=== PATIENT | female | born 1940 | race Caucasian/White ===

== ENCOUNTER → 2016-09-06 | Outpatient (CLI) | payer BC ==
[~2016-09-06] MED LIST: ACET-1047 PO; ACET-1311 PO; ALBINS/ INH; AMOX500C3 PO; AMOX875T PO; ASPI-428 PO; ATOR-24 PO; BISA10SU3 PR; CHOL1000 PO; CHOL100010 PO; CLON0.5T3 PO; CRAN1CAP15 PO; CRAN1CHW PO; DOCU-94 PO; DOXY1TAB6 PO; DULO-24 PO; EFF/375 PO; FENT50DI19 TD; FENT75DI2 TP; GUAI-13 PO; HYDR-5688 PO; IMD/2 PO; IPRASOL4 INH; LISI-461 PO; LISI-729 PO; LISI-789 PO; MENTOIN TOP; METO-596 PO; MOML PO; MULT-506 PO; NITR100C41 PO; NORT50CA PO; NORT75CA2 PO; OMEP20TA PO; OMEP40CA PO; OXYB5TAB21 PO; PETR49OI TOP; PROM25TA9 PO; PSYL55.43 PO; SENN-61 PO; SITA50TA3 PO; SODIENE PR; VENL150C PO; VENL37.593 PO; VSC/5 PO; WITCPAD TOP; [UNRECOGNIZED DRUG - CODE] TOP; [UNRECOGNIZED DRUG - SUPPLY] TOP; [UNRECOGNIZED DRUG - SUPPLY] TOP
--- NOTE | 2016-09-06 15:30 | MAMMOGRAPHY REPORT ---
BILATERAL DIGITAL SCREENING MAMMOGRAM WITH CAD: 09/06/2016 TECHNIQUE: Current study was also evaluated with a Computer Aided Detection (CAD) system. Bilatera l CC and MLO views were obtained. COMPARISON: Comparison is made to exams dated: 11/19/2013 mammogram, 11/18/2012 mammogram, 08/12/2010 ultrasound, 08/12/2010 mammogram, and 02/21/2010 mammogram - [facility]. BREAST COMPOSITION: The tissue of both breasts is heterogeneously dense, which may obscure small ma sses. FINDINGS: There is a new 16 mm mass with possible associated calcifications seen within the right u pper outer quadrant, for which spot compression tomosynthesis views, spot magnification views, and p ossible breast ultrasound are recommended for further evaluation. Additionally, there is an area of possible architectural distortion seen within the left lateral anterior breast, for which spot compr ession tomosynthesis views are also recommended. There is also a nodular 14 mm asymmetry seen withi n the left breast on the cc view along the posterior nipple line, for which spot compression tomosyn thesis views and possible ultrasound are recommended. The remainder of both breasts demonstrate no suspicious masses, calcifications, or areas of architec tural distortion. There are stable postsurgical changes in the right medial breast from prior lumpe ctomy. Scattered bilateral benign-appearing calcifications are again noted. IMPRESSION: ACR BI-RADS CATEGORY 0: INCOMPLETE EVALUATION: NEED ADDITIONAL IMAGING EVALUATION Right upper outer quadrant breast mass, possible left breast architectural distortion, and left stephane st asymmetry, for which additional imaging evaluation is recommended. The patient will be called to schedule an appointment. Approximately 10% of breast cancers are not detected with mammography. A negative mammographic repor t should not delay biopsy if a clinically suggestive mass is present. Elizabeth Quiros M.D. /:09/06/2016 13:20:12 Attending Technologist: Loulou Hassan RT(R)(M), [facility] Supervisor Reclamation: Kayla Culp RT(R)(M), [facility] letter sent: Addl Imaging 0 BI-RADS Code: ACR BI-RADS Category 0: Incomplete Evaluation: Need Additional Imaging Evaluation
== END | disposition home or self-care (01) ==
LOC: C.MAMM 11:53
PROVIDERS: ATTEND Family Medicine
DX: Z12.31 Encounter for screening mammogram for malignant neoplasm of breast (principal); Z85.3 Personal history of malignant neoplasm of breast; N63 Unspecified lump in breast

== ENCOUNTER → 2016-09-14 | Outpatient (CLI) | payer BC ==
[2016-09-14 08:50] LABS: BASO % 0.2 %; BASO ABS # 0.01 K/uL (0-0.2); COMPLETE YES; EOS % 0.2 %; HEMATOCRIT 35.8 % (37-47); IG% 4.1 %; LYMPH % 31.3 %; MEAN CORPUSCULAR HEMOGLOBIN 30.2 pg (25-34); MEAN CORPUSCULAR HGB CONC 31.8 g/dl (32-36); MEAN PLATELET VOLUME 9.8 fL (7.4-10.4); MONO % 11.7 %; NEUT % 52.5 %; PLATELET COUNT 196 K/uL (130-400); RED BLOOD COUNT 3.77 M/uL (4.2-5.4); WHITE BLOOD COUNT 6.08 K/uL (4.8-10.8)
[2016-09-14 09:06] LABS: ALT/SGPT 40 U/L (12-78); BLOOD UREA NITROGEN 15 mg/dl (7-18); BUN/CREATININE RATIO 18.6 (10-20); CALCIUM 8.5 mg/dl (8.5-10.1); CARBON DIOXIDE 26 mmol/L (21-32); CHLORIDE 107 mmol/L (98-107); CHOLESTEROL 183 mg/dl (0-200); CHOLESTEROL/HDL RATIO 6.8; CREATININE 0.78 mg/dl (0.60-1.20); GLUCOSE 113 mg/dl (70-99); HDL CHOLESTEROL 27 mg/dl; POTASSIUM 3.9 mmol/L (3.5-5.1); SODIUM 143 mmol/L (136-145); TRIGLYCERIDES 400 mg/dl (0-150)
[2016-09-14 09:17] LABS: ALB/GLOB RATIO 0.6 (0.9-2); ALKALINE PHOSPHATASE 73 U/L (45-117); AST/SGOT 30 U/L (15-37)
[2016-09-14 10:16] LABS: ESTIMATED AVERAGE GLUCOSE 194 mg/dl; HA1C FLAG Normal (Normal)
== END ==
LOC: C.LABCC 08:24
PROVIDERS: ATTEND Internal Medicine
DX: E11.9 Type 2 diabetes mellitus without complications (principal); I10 Essential (primary) hypertension; D64.9 Anemia, unspecified; E78.5 Hyperlipidemia, unspecified; E55.9 Vitamin D deficiency, unspecified

== ENCOUNTER → 2016-10-12 | Outpatient (CLI) | payer BC ==
[~2016-10-12] MED LIST changes: -NITR100C41 PO; +NITR100C43 PO
--- NOTE | 2016-10-12 16:29 | MAMMOGRAPHY REPORT ---
BILATERAL DIGITAL DIAGNOSTIC MAMMOGRAM TOMOSYNTHESIS WITH CAD AND TARGETED BILATERAL ULTRASOUND: 09/30 CLINICAL HISTORY: Callback from screening mammogram for right breast mass and left breast asymmetrie s. TECHNIQUE: Breast tomosynthesis in addition to standard 2D mammography was performed. Current study was also evaluated with a Computer Aided Detection (CAD) system. Spot compression bilateral CC and MLO 2-D and tomosynthesis images were obtained. COMPARISON: Comparison is made to exams dated: 09/06/2016 mammogram, 11/19/2013 mammogram, 11/18/2012 m ammogram, 08/12/2010 ultrasound, 08/12/2010 mammogram, and 02/21/2010 mammogram - [facility]. BREAST COMPOSITION: The tissue of both breasts is heterogeneously dense, which may obscure small ma sses. FINDINGS: Spot compression views of the right breast demonstrate a new irregular 17 mm mass with non-circumscr ibed margins in the right upper outer quadrant. Calcifications are seen within the mass. Note that spot magnification views could not be performed to evaluate the calcifications as the patient canno t stand. Additionally, there are diffusely scattered calcifications throughout the right breast whi ch are increased compared to prior exams. Many of the calcifications are very coarse and are clearl y benign and consistent with dystrophic calcifications. Other smaller calcifications are seen scatt ered throughout the right breast which are predominantly punctate and may also be dystrophic althoug h are indeterminate at this time. The previously described possible architectural distortion within the left breast on the cc view castro s not persist on the additional spot compression views. Additionally, the asymmetry seen within the left breast on the CC view posteriorly is less prominent on the spot compression view, and has the appearance more of fibroglandular tissue on the tomosynthesis images. No clear mass or suspicious a rchitectural distortion is noted in the left breast on the additional views. Targeted ultrasound was performed of the area of the mammographic mass in the right upper outer quad rant. Note that the ultrasound exam is limited as the patient is in a wheelchair and cannot move ea sily for proper positioning. In the right breast at 10:00, approximately 9 cm from the nipple, ther e is an irregular hypoechoic solid mass which measures 1.4 x 1.3 x 1.6 cm. A few punctate echogenic foci are seen within the mass, which correspond with the calcifications seen mammographically. The mass is highly suspicious and ultrasound guided core needle biopsy is recommended for further evalu ation. Targeted ultrasound was also performed of the left 12:00, subareolar, and 6:00 breast, in the region of the mammographic asymmetry. Although the ultrasound examination is limited, no suspicious mass or other suspicious sonographic abnormality is evident. IMPRESSION: ACR BI-RADS CATEGORY 5: HIGHLY SUGGESTIVE OF MALIGNANCY, TARGETED ULTRASOUND ACR BI-RAD S CATEGORY 5: HIGHLY SUGGESTIVE OF MALIGNANCY 1. Irregular 1.4 cm hypoechoic mass with associated calcifications in the right 10:00 breast. The mass is highly suspicious and ultrasound guided core needle biopsy is recommended for further evalua tion. 2. Increasing calcifications throughout the right breast, many of which are coarse and clearly sneha gn and dystrophic in origin. Other smaller punctate calcifications are seen throughout the right br east which may also be dystrophic although are indeterminate at this time. Pending malignant pathol ogy results of the right 10:00 mass, additional biopsies may be needed of the calcifications, if the patient desires breast conserving therapy (the patient is not a stereotactic biopsy candidate). 3. The left breast asymmetries efface on the additional views, without definite corresponding sonog raphic abnormality evident. The asymmetries are benign and felt to represent normal fibroglandular tissue. A phone call was made to the physician's office to confirm faxed results were received. The patient and her sister have been verbally notified of the results. A biopsy was tentatively scheduled befo re the patient left the department. Approximately 10% of breast cancers are not detected with mammography. A negative mammographic repor t should not delay biopsy if a clinically suggestive mass is present. Elizabeth Quiros M.D. ah/:10/12/2016 16:06:15 Attending Technologist: Terri Lang RT(R)(M), [facility] Rn Access: Estelle Hernandez RT(R)(M), [facility] letter sent: Abnormal 4/5 BI-RADS Code: ACR BI-RADS Category 5: Highly Suggestive Of Malignancy Ultrasound BI-RADS: ACR BI-RA DS Category 5: Highly Suggestive Of Malignancy
== END ==
LOC: C.MAMM 13:30
PROVIDERS: ATTEND Internal Medicine
DX: N63 Unspecified lump in breast (principal); N64.89 Other specified disorders of breast

== ENCOUNTER → 2016-10-12 | Outpatient (CLI) | payer BC ==
[2016-10-12 08:53] LABS: HEMATOCRIT 38.2 % (37-47); MEAN CELL VOLUME 92.7 fL (80-100); MEAN CORPUSCULAR HEMOGLOBIN 30.1 pg (25-34); MEAN CORPUSCULAR HGB CONC 32.5 g/dl (32-36); MEAN PLATELET VOLUME 9.2 fL (7.4-10.4); PLATELET COUNT 252 K/uL (130-400); RED BLOOD COUNT 4.12 M/uL (4.2-5.4); WHITE BLOOD COUNT 10.14 K/uL (4.8-10.8)
[2016-10-12 09:54] LABS: ALT/SGPT 20 U/L (12-78); AST/SGOT 28 U/L (15-37); BLOOD UREA NITROGEN 12 mg/dl (7-18); BUN/CREATININE RATIO 11.6 (10-20); CALCIUM 8.8 mg/dl (8.5-10.1); CARBON DIOXIDE 31 mmol/L (21-32); CHLORIDE 107 mmol/L (98-107); GLUCOSE 118 mg/dl (70-99); POTASSIUM 4.3 mmol/L (3.5-5.1); SODIUM 143 mmol/L (136-145)
[2016-10-12 09:57] LABS: ALB/GLOB RATIO 0.6 (0.9-2); ALKALINE PHOSPHATASE 71 U/L (45-117)
== END ==
LOC: C.LABCC 08:16
PROVIDERS: ATTEND Internal Medicine
DX: R11.2 Nausea with vomiting, unspecified (principal); R19.7 Diarrhea, unspecified; N63 Unspecified lump in breast; N64.89 Other specified disorders of breast

== ENCOUNTER → 2016-10-26 | Outpatient (CLI) | payer BC ==
--- NOTE | 2016-10-26 09:57 | Discharge Instructions ---
Discharge Instructions Procedure Procedure Date: Oct 26, 2016. Reason for visit: Right Mass. Discharge Discharge Date: Oct 26, 2016. Discharge Diagnosis: status post breast biopsy Instructions Activity Recommendations: Additional Limitations (see below) Return to School/Work: no limitations Recommended Home Diet: No Limitations Provider Instructions: ACTIVITY RECOMMENDATIONS: * No lifting, pushing, pulling or exercising the affected side for three days. RETURN TO SCHOOL/WORK: * You may return to work/school after the procedure, but do not perform any strenuous activities for 24 to 48 hours. MEDICATIONS: * Tylenol (two 325 mg) every four to six hours if needed for mild pain (if not allergic to Tylenol). DIET: * Resume previous diet. SPECIAL CARE INSTRUCTIONS: * Keep biopsy site dry for 24 hours. May shower after 24 hours, but do not soak (bathe) incision. * May remove Tegaderm (plastic patch) tomorrow AFTER showering. * Leave the steri-strips on for one week. Allow the steri-strips to fall off by themselves. If not off after one week, you may remove them. You may place a Bandaid crosswise over the strips, if desired. * Apply ice 10 minutes on and 10 minutes off as needed. * Wear a bra at bedtime to sleep more comfortably for 2-3 days. * Your referring physician should have the results after approximately 5 to 7 business days. * Call for unusual bleeding, fever, drainage, etc or if you have any questions call during normal business hours or after hours call Dr Quiros, . FOLLOW UP VISIT: Follow-up with Referring Physician as scheduled. Allergies Coded Allergies: Latex1 -Allergic Contact Dermititis (Verified Allergy, Unknown, ARMS SWELLED, 05/24/15) Aspirin (Verified Adverse Reaction, Mild, N/V, 05/24/15) Morphine (Verified Adverse Reaction, Mild, N/V; PATIENT TOLERATES DILAUDID IV, 05/24/15) Oxycodone (Verified Adverse Reaction, Mild, N/V; PATIENT TOLERATES DILAUDID IV, 05/24/15) Replaces ROXICET SOLN Ismael Chadwick Recommendations: Call your doctor if: * Temperature above 101 degrees * Pain not relieved by pain medicine ordered * There is increased drainage or redness from any incision * You have any unanswered questions or concerns. Your Doctors Instructions noted above were prepared by provider Elizabeth Quiros. Patient Signature Section: Patient Instructions Signature Page Ciara Kirkland Patient (or Guardian) Signature/Date: I have read and understand the instructions given to me by my caregivers. Caregiver/RN/Doctor Signature/Date: The above-named patient and/or guardian has received patient instructions on this date. + Original Patient Signature Page (only) stays with chart. Please make copy for patient.
--- NOTE | 2016-10-26 15:06 | MAMMOGRAPHY REPORT ---
THIS REPORT HAS BEEN AMENDED. ULTRASOUND GUIDED BIOPSY RIGHT BREAST: 10/26/2016 CLINICAL HISTORY: Suspicious right 10:00 breast mass with associated calcifications. PATIENT CONSENT: The procedure, risks and benefits were discussed with the patient and informed writ ten consent was obtained. A timeout was performed immediately prior to the procedure. PROCEDURE DESCRIPTION: With ultrasound guidance, aseptic technique, and lidocaine as the local anest hetic (1% lidocaine to anesthetize the skin and 1% lidocaine with epinephrine to anesthetize the roshni per tissues), the mass of concern in the right 10:00 breast was sampled 4 times with a 14-gauge Achi heidi biopsy needle. Immediately thereafter, with ultrasound guidance, aseptic technique, and lidocai ne as the local anesthetic, a metallic localizer clip was placed centrally in the mass. Direct pres sure was applied to the site immediately post procedure and hemostasis was achieved. A specimen radiograph was performed of the samples, which shows some calcifications to be present wi thin the samples. Postprocedure unilateral mammograms were performed to confirm placement of the cl ip in the expected location of the breast mass. The patient tolerated the procedure without complic ation. She was given wound care instructions. The specimens were sent to pathology for analysis. COMPARISON: Comparison is made to exams dated: 10/12/2016 mammogram, 09/06/2016 mammogram, 11/19/2013 m ammogram, and 11/18/2012 mammogram - [facility]. IMPRESSION: ULTRASOUND GUIDED BIOPSY Ultrasound guided core needle biopsy of the suspicious right 10:00 breast mass with associated calci fications, with clip placement. The patient will receive pathology results from her referring provi johnson. Elizabeth Quiros M.D. ah/:10/26/2016 09:58:58 Mineral Industry Teacher: Estelle DUFF(R)(Vida), [facility] AMENDMENT: 11/01/2016 Elizabeth Quiros M.D. The pathology from ultrasound-guided right breast biopsy was reviewed on 11/01/2016. 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 As the ma ss contained calcifications, if breast conserving therapy is being considered, consider additional b iopsies of other calcifications in the right breast which are increased compared to prior exams, to exclude the possibility of more extensive disease (the patient is not a stereotactic biopsy candidat e and would need surgical biopsy).
--- NOTE | 2016-10-26 15:08 | MAMMOGRAPHY REPORT ---
UNILATERAL RIGHT DIGITAL DIAGNOSTIC MAMMOGRAM: 10/26/2016 CLINICAL HISTORY: Status post ultrasound-guided biopsy of a right 10:00 breast mass. TECHNIQUE: Postprocedural right CC and ML views were obtained. COMPARISON: Comparison is made to exams dated: 10/12/2016 mammogram, 09/06/2016 mammogram, 11/19/2013 m ammogram, and 11/18/2012 mammogram - [facility]. BREAST COMPOSITION: The tissue of the right breast is heterogeneously dense, which may obscure smal l masses. FINDINGS: A new biopsy marker clip is seen within the biopsied mass in the right upper outer quadra nt. No significant postbiopsy hematoma is seen. IMPRESSION: POST PROCEDURE IMAGING FOR MARKER PLACEMENT New biopsy marker clip status post ultrasound guided biopsy of a right 10:00 breast mass with associ ated calcifications. Pathology results are pending. Approximately 10% of breast cancers are not detected with mammography. A negative mammographic repor t should not delay biopsy if a clinically suggestive mass is present. Elizabeth Quiros M.D. ah/:10/26/2016 10:14:34 Manager Etl: Estelle DUFF(R)(M), [facility] BI-RADS Code: Post Procedure Imaging For Marker Placement
== END ==
LOC: C.MAMM 08:55
PROVIDERS: ATTEND Pathology Anatomic Pathology & Clinical Pathology
DX: N63 Unspecified lump in breast (principal)

== ENCOUNTER → 2016-11-17 | Outpatient (CLI) | payer BC | LOC: C.LABCC 08:04 | PROVIDERS: ATTEND Internal Medicine | DX: E55.9 Vitamin D deficiency, unspecified (principal) ==

== ENCOUNTER → 2017-02-09 | Outpatient (CLI) | payer BC ==
[~2017-02-09] MED LIST changes: -ACET-1311 PO; -AMOX500C3 PO; -CRAN1CAP15 PO; -CRAN1CHW PO; -DULO-24 PO; -IMD/2 PO; -IPRASOL4 INH; -LISI-461 PO; -NITR100C43 PO; -NORT75CA2 PO; -PSYL55.43 PO; -VSC/5 PO
[2017-02-09 09:23] LABS: CHOLESTEROL/HDL RATIO 6.6
[2017-02-09 09:57] LABS: ESTIMATED AVERAGE GLUCOSE 160 mg/dl; HA1C FLAG Normal (Normal)
== END ==
LOC: C.LABCC 07:45
PROVIDERS: ATTEND Internal Medicine
DX: E78.5 Hyperlipidemia, unspecified (principal); E13.40 Other specified diabetes mellitus with diabetic neuropathy, unspecified

== ENCOUNTER 2017-02-12 07:33 | Observation (INO) | payer BC ==
[2016-12-27 15:43] VITALS: BMI 38.0
--- NOTE | 2016-12-28 08:43 | PAT Medication Instructions ---
Service Date Dec 28, 2016. Current Home Medication List Acetaminophen (Mapap), 1,300 MG PO BID PRN for PAIN OR TEMP Albuterol Sulf (Proventil 0.083% 2.5MG/3ML), 2.5 MG INH QID PRN for wheezing Aspirin (Ecotrin Low Strength), 81 MG PO QAM Bisacodyl (Dulcolax), 1 SUPP TX UD PRN for RN Cholecalciferol (Vitamin D), 1,000 INTER.UNIT PO QAM Clonazepam (Klonopin), 0.5 MG PO NOON/HS Clonazepam (Klonopin), 0.25 MG PO BID Cranberry (Vaccinium Macrocarp (Cranberry Soft Chews), 500 MG PO BID Fentanyl (Duragesic), 50 MCG TD CQ72HR Guaifenesin (Tussin), 10 ML PO Q6H PRN for Cough Hydrocodone/Acetaminophen 5MG/325MG ([place] 5MG/325MG), 1 TABLET PO Q4H PRN for RN Lisinopril (Prinivil), 2.5 MG PO QAM Magnesium Hydroxide (Milk Of Magnesia), 30 ML PO UD PRN Menthol-Zinc Oxide (Calmoseptine), 1 DOSE TOP Q8H Metoprolol Tartrate (Lopressor), 100 MG PO BID Miconazole Nitrate (Topical) (Aloe [place] Antifungal), 1 DOSE TOP BID Multivitamin (Multivitamin), 1 TAB PO QAM Nortriptyline (Pamelor), 50 MG PO HS Omeprazole (Prilosec), 40 MG PO BID Oxybutynin Chloride (Ditropan Xl), 5 MG PO QAM Petrolatum-Zinc Oxide (Sensi-Care Protective Bar), 1 DOSE TOP Q8H Promethazine Hcl (Phenergan), 25 MG PO Q6H PRN for Nausea Senna (Senokot), 1 TAB PO QAM Sitagliptin (Januvia), 50 MG PO QAM Sodium Phosphate/Biphosphate (Fleet Enema), 1 EA TX DAILY PRN for PRN Venlafaxine Hcl (Effexor Xr), 150 MG PO QAM Venlafaxine Hcl (Effexor), 37.5 MG PO QAM Witch Pepper (Hamamelis Virgini (Tucks Medicated), 1 DOSE TOP PRN [Skin Barrier Wipes], 1 DOSE TOP QPM [Tegaderm Absorbent], 1 DOSE TOP DAILY PRN for bar host Instructions For Your Scheduled Surgery - Check with surgeon and primary care physician for instructions: Aspirin (Ecotrin Low Strength), 81 MG PO QAM - Hold the following medications starting 12/28/16: Cranberry (Vaccinium Macrocarp (Cranberry Soft Chews), 500 MG PO BID - Hold the following medications 24 hours prior to surgery: [Skin Barrier Wipes], 1 DOSE TOP QPM [Tegaderm Absorbent], 1 DOSE TOP DAILY PRN for RN Katelyn Elderel (Hamamelis Virgini (Tucks Medicated), 1 DOSE TOP PRN Petrolatum-Zinc Oxide (Sensi-Care Protective Bar), 1 DOSE TOP Q8H Miconazole Nitrate (Topical) (Aloe [place] Antifungal), 1 DOSE TOP BID Menthol-Zinc Oxide (Calmoseptine), 1 DOSE TOP Q8H - Hold the following medications the morning of surgery: Sodium Phosphate/Biphosphate (Fleet Enema), 1 EA TX DAILY PRN for PRN Sitagliptin (Januvia), 50 MG PO QAM Senna (Senokot), 1 TAB PO QAM Oxybutynin Chloride (Ditropan Xl), 5 MG PO QAM Multivitamin (Multivitamin), 1 TAB PO QAM Magnesium Hydroxide (Milk Of Magnesia), 30 ML PO UD PRN Lisinopril (Prinivil), 2.5 MG PO QAM Guaifenesin (Tussin), 10 ML PO Q6H PRN for Cough Cholecalciferol (Vitamin D), 1,000 INTER.UNIT PO QAM Bisacodyl (Dulcolax), 1 SUPP TX UD PRN for RN - Take the following medications the morning of surgery with a sip of water: Venlafaxine Hcl (Effexor Xr), 150 MG PO QAM Venlafaxine Hcl (Effexor), 37.5 MG PO QAM Promethazine Hcl (Phenergan), 25 MG PO Q6H PRN for Nausea (if needed) Omeprazole (Prilosec), 40 MG PO BID Metoprolol Tartrate (Lopressor), 100 MG PO BID Hydrocodone/Acetaminophen 5MG/325MG ([place] 5MG/325MG), 1 TABLET PO Q4H PRN for RN (okay to take up to 4 hours prior to surgery if needed) Fentanyl (Duragesic), 50 MCG TD CQ72HR (avoid surgical site for placement) Acetaminophen (Mapap), 1,300 MG PO BID PRN for PAIN OR TEMP (if needed) Albuterol Sulf (Proventil 0.083% 2.5MG/3ML), 2.5 MG INH QID PRN for wheezing (if needed) - Take the following medications as scheduled the night before surgery: Sodium Phosphate/Biphosphate (Fleet Enema), 1 EA TX DAILY PRN for PRN (if needed) Promethazine Hcl (Phenergan), 25 MG PO Q6H PRN for Nausea (if needed) Omeprazole (Prilosec), 40 MG PO BID Nortriptyline (Pamelor), 50 MG PO HS Metoprolol Tartrate (Lopressor), 100 MG PO BID Magnesium Hydroxide (Milk Of Magnesia), 30 ML PO UD PRN (if needed) Hydrocodone/Acetaminophen 5MG/325MG ([place] 5MG/325MG), 1 TABLET PO Q4H PRN for RN (if needed) Guaifenesin (Tussin), 10 ML PO Q6H PRN for Cough (if needed) Clonazepam (Klonopin), 0.5 MG PO NOON/HS Clonazepam (Klonopin), 0.25 MG PO BID Bisacodyl (Dulcolax), 1 SUPP TX UD PRN for RN (if needed) Acetaminophen (Mapap), 1,300 MG PO BID PRN for PAIN OR TEMP (if needed) Albuterol Sulf (Proventil 0.083% 2.5MG/3ML), 2.5 MG INH QID PRN for wheezing (if needed) If you have any questions please call us at [phone] or [phone] or [phone]
[2017-01-29 11:07] LABS: BASO % 0.3 %; BASO ABS # 0.02 K/uL (0-0.2); COMPLETE YES; EOS % 3.2 %; HEMATOCRIT 35.3 % (37-47); IG% 0.3 %; LYMPH ABS # 1.94 K/uL (1.2-3.4); MEAN CELL VOLUME 92.2 fL (80-100); MEAN CORPUSCULAR HGB CONC 31.4 g/dl (32-36); MEAN PLATELET VOLUME 9.9 fL (7.4-10.4); MONO % 12.9 %; NEUT % 52.3 %; PLATELET COUNT 186 K/uL (130-400); RED BLOOD COUNT 3.83 M/uL (4.2-5.4); WHITE BLOOD COUNT 6.26 K/uL (4.8-10.8)
[2017-01-29 11:19] LABS: BUN/CREATININE RATIO 21.4 (10-20); CREATININE 0.98 mg/dl (0.60-1.20); POTASSIUM 3.9 mmol/L (3.5-5.1)
[2017-01-30 08:43] VITALS: BMI 33.0; BMI 38.0
--- NOTE | 2017-01-30 12:36 | PAT Medication Instructions ---
Service Date Jan 30, 2017. Current Home Medication List Acetaminophen (Mapap), 1,300 MG PO BID PRN for PAIN OR TEMP Albuterol Sulf (Proventil 0.083% 2.5MG/3ML), 2.5 MG INH QID PRN for wheezing Aspirin (Ecotrin Low Strength), 81 MG PO QAM Bisacodyl (Dulcolax), 1 SUPP NC UD PRN for RN Cholecalciferol (Vitamin D), 1,000 INTER.UNIT PO QAM Clonazepam (Klonopin), 0.5 MG PO NOON/HS Clonazepam (Klonopin), 0.25 MG PO BID Docusate Sodium (Colace), 1 CAP PO BID PRN for Constipation Fentanyl (Duragesic), 50 MCG TD CQ72HR Guaifenesin (Tussin), 10 ML PO Q6H PRN for Cough Hydrocodone/Acetaminophen 5MG/325MG ([place] 5MG/325MG), 1 TABLET PO Q4H PRN for RN Lisinopril (Prinivil), 2.5 MG PO QAM Magnesium Hydroxide (Milk Of Magnesia), 30 ML PO UD PRN Menthol-Zinc Oxide (Calmoseptine), 1 DOSE TOP Q8H Metoprolol Tartrate (Lopressor), 100 MG PO BID Miconazole Nitrate (Topical) (Aloe [place] Antifungal), 1 DOSE TOP BID Multivitamin (Multivitamin), 1 TAB PO QAM Nortriptyline (Pamelor), 50 MG PO HS Omeprazole (Prilosec), 40 MG PO BID Oxybutynin Chloride (Ditropan Xl), 5 MG PO QAM Petrolatum-Zinc Oxide (Sensi-Care Protective Bar), 1 DOSE TOP Q8H Promethazine Hcl (Phenergan), 25 MG PO Q6H PRN for Nausea Senna (Senokot), 1 TAB PO QAM Sitagliptin (Januvia), 50 MG PO QAM Sodium Phosphate/Biphosphate (Fleet Enema), 1 EA NC DAILY PRN for PRN Venlafaxine Hcl (Effexor Xr), 150 MG PO QAM Venlafaxine Hcl (Effexor), 37.5 MG PO QAM Witch Pepper (Hamamelis Virgini (Tucks Medicated), 1 DOSE TOP PRN [Skin Barrier Wipes], 1 DOSE TOP QPM [Tegaderm Absorbent], 1 DOSE TOP DAILY PRN for senior test engineer Instructions For Your Scheduled Surgery For Your Scheduled Surgery - Check with surgeon and primary care physician for instructions: Aspirin (Ecotrin Low Strength), 81 MG PO QAM - Hold the following medications 24 hours prior to surgery: [Skin Barrier Wipes], 1 DOSE TOP QPM [Tegaderm Absorbent], 1 DOSE TOP DAILY PRN for RN Katelyn Pabon (Hamamelis Virgini (Tucks Medicated), 1 DOSE TOP PRN Petrolatum-Zinc Oxide (Sensi-Care Protective Bar), 1 DOSE TOP Q8H Miconazole Nitrate (Topical) (Aloe [place] Antifungal), 1 DOSE TOP BID Menthol-Zinc Oxide (Calmoseptine), 1 DOSE TOP Q8H - Hold the following medications the morning of surgery: Sodium Phosphate/Biphosphate (Fleet Enema), 1 EA NC DAILY PRN for PRN Sitagliptin (Januvia), 50 MG PO QAM Senna (Senokot), 1 TAB PO QAM Oxybutynin Chloride (Ditropan Xl), 5 MG PO QAM Multivitamin (Multivitamin), 1 TAB PO QAM Magnesium Hydroxide (Milk Of Magnesia), 30 ML PO UD PRN Lisinopril (Prinivil), 2.5 MG PO QAM Guaifenesin (Tussin), 10 ML PO Q6H PRN for Cough Cholecalciferol (Vitamin D), 1,000 INTER.UNIT PO QAM Docusate Sodium PRN constipation - Take the following medications the morning of surgery with a sip of water: Venlafaxine Hcl (Effexor Xr), 150 MG PO QAM Venlafaxine Hcl (Effexor), 37.5 MG PO QAM Promethazine Hcl (Phenergan), 25 MG PO Q6H PRN for Nausea (if needed) Omeprazole (Prilosec), 40 MG PO BID Metoprolol Tartrate (Lopressor), 100 MG PO BID Hydrocodone/Acetaminophen 5MG/325MG ([place] 5MG/325MG), 1 TABLET PO Q4H PRN for RN (okay to take up to 4 hours prior to surgery if needed) Fentanyl (Duragesic), 50 MCG TD CQ72HR (avoid surgical site for placement) Acetaminophen (Mapap), 1,300 MG PO BID PRN for PAIN OR TEMP (if needed) Albuterol Sulf (Proventil 0.083% 2.5MG/3ML), 2.5 MG INH QID PRN for wheezing (if needed) - Take the following medications as scheduled the night before surgery: Sodium Phosphate/Biphosphate (Fleet Enema), 1 EA NC DAILY PRN for PRN (if needed) Promethazine Hcl (Phenergan), 25 MG PO Q6H PRN for Nausea (if needed) Omeprazole (Prilosec), 40 MG PO BID Nortriptyline (Pamelor), 50 MG PO HS Metoprolol Tartrate (Lopressor), 100 MG PO BID Magnesium Hydroxide (Milk Of Magnesia), 30 ML PO UD PRN (if needed) Hydrocodone/Acetaminophen 5MG/325MG ([place] 5MG/325MG), 1 TABLET PO Q4H PRN for RN (if needed) Guaifenesin (Tussin), 10 ML PO Q6H PRN for Cough (if needed) Clonazepam (Klonopin), 0.5 MG PO NOON/HS Clonazepam (Klonopin), 0.25 MG PO BID Acetaminophen (Mapap), 1,300 MG PO BID PRN for PAIN OR TEMP (if needed) Albuterol Sulf (Proventil 0.083% 2.5MG/3ML), 2.5 MG INH QID PRN for wheezing (if needed) Docusate Sodium PRN constipation (if needed) If you have any questions please call us at [phone] or [phone] or [phone]
[~2017-02-12] VITALS: Ht 152.4 cm; Wt 77.3 kg
[2017-02-12] VITALS (8 sets, daily range): BP systolic 120–152; BP diastolic 60–80; PULSE 85–98; TEMP 36.5–37.7; O2SAT 91–97; Ht 152.4 cm; Wt 77.3 kg
[~2017-02-12 07:33] MED LIST changes: -AMOX875T PO; -ATOR-24 PO; -CHOL1000 PO; -DOXY1TAB6 PO; -FENT75DI2 TP; +LACTATED RINGER'S 1000ML 1,000 ML IV SCH; -LISI-789 PO; -OMEP20TA PO; -VENL37.593 PO
[2017-02-12] MEDS ORDERED: ATROPINE SULFATE 0.1 MG/ML 5ML SYR IV PRN (07:45)
[2017-02-12] MEDS ORDERED: FLUMAZENIL 0.1 MG/1 ML 10 ML VIAL IV PRN (07:45)
[2017-02-12] MEDS ORDERED: PHENYLEPHRINE 100MCG/ML 5ML SYR IV PRN (07:45)
[2017-02-12] MEDS ORDERED: LABETALOL HCL IV 5 MG/ML 20ML IV PRN (07:45)
[2017-02-12] MEDS ORDERED: ONDANSETRON INJ 2 MG/ML 2 ML VIAL IV PRN (07:45)
[2017-02-12] MEDS ORDERED: NALOXONE HCL 0.4 MG/1 ML VIAL/CARP IV PRN (07:45)
[2017-02-12] MEDS ORDERED: EpHEDrine SULFATE INJ 50 MG/ML AMP IV PRN (07:45)
[2017-02-12] MEDS ORDERED: FENTANYL CITRATE INJ 50 MCG/1 ML 2 ML VIAL IV PRN (07:45)
[2017-02-12] MEDS ORDERED: HYDROmorphone INJ 2 MG/ML SYR/VIAL IV PRN (07:45)
[2017-02-12] MEDS ORDERED: MEPERIDINE HCL 25 MG/ML CARP IV PRN (07:45)
--- NOTE | 2017-02-12 08:57 | DIAGNOSTIC IMAGING REPORT ---
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 No complications. The above report was generated using voice recognition software. It may contain grammatical, syntax or spelling errors. Electronically signed by: Ranjeet Lund M.D. 02/12/2017 8:55 AM Dictated Date/Time: 02/12/2017 8:54 AM
[2017-02-12] MEDS ORDERED: FENTANYL CITRATE INJ 50 MCG/1 ML 2 ML VIAL ONE ×2 (09:13→14:05)
--- NOTE | 2017-02-12 11:20 | History & Physical Bridge Note ---
H&P Re-Evaluation Bridge Note: I have examined the patient, reviewed the History & Physical and in the interval since the performance of the History & Physical I have noted the following changes of clinical significance: No changes noted
[2017-02-12] MEDS ORDERED: ISOSULFAN BLUE 10 MG/ML VIAL 5 ML ONE (11:37)
[2017-02-12] MEDS ORDERED: DEXAMETHASONE SOD INJ 4 MG/ML VIAL ONE (12:00)
[2017-02-12] MEDS ORDERED: ONDANSETRON INJ 2 MG/ML 2 ML VIAL ONE (12:00)
[2017-02-12] MEDS ORDERED: LIDOCAINE HCL 2% 2 ML VIAL (20MG/ML) ONE (12:00)
[2017-02-12] MEDS ORDERED: PHENYLEPHRINE 100MCG/ML 5ML SYR ONE (12:00)
[2017-02-12] MEDS ORDERED: PROPOFOL IV EMULSION 10 MG/ML 20 ML VIAL IV ONE (12:00)
[2017-02-12] MEDS ORDERED: EpHEDrine SULFATE 50MG/5ML SYR ONE (12:45)
--- NOTE | 2017-02-12 13:33 | [facility] Post Operative Brief Note ---
Immediate Operative Summary Operative Date Feb 12, 2017. Pre-Operative Diagnosis Carcinoma Right Breast Post-Operative Diagnosis same as pre-operative Procedure(s) Performed Right Masectomy with exploration of right axilla Surgeon Dr. Ranjeet Tsang Signal Person Surgeon(s) Arianne Bello PA-C Estimated Blood Loss 75ml Findings See dictation Specimens A: Right Breast stitch lateral B: Right Axillary Fat Drains One J-P across chest wall Anesthesia General Complication(s) None Disposition Recovery Room / PACU
[2017-02-12] MEDS ORDERED: HYDROmorphone INJ 0.5 MG/0.5 ML SYR IV PRN (13:45)
[2017-02-12] MEDS ORDERED: DOCUSATE SODIUM 100 MG CAP PO PRN (13:45)
[2017-02-12] MEDS ORDERED: IV FLUIDS COMPLETED PRN (14:45)
--- NOTE | 2017-02-12 14:52 | Anesthesiology Progress Note ---
Anesthesia Post Op Note Date & Time Feb 12, 2017 at 14:52 Vital Signs Pain Intensity: 3 Vital Signs Past 12 Hours Date Time Temp Pulse Resp B/P (MAP) Pulse Ox O2 Delivery O2 Flow Rate FiO2 02/12/17 14:30 36.8 86 15 152/67 95 Nasal Cannula 2 02/12/17 14:20 90 18 142/65 97 Nasal Cannula 2 02/12/17 14:10 86 14 152/75 98 Mask 10 02/12/17 14:00 85 17 132/78 100 Mask 10 02/12/17 13:50 79 17 146/81 100 Mask 10 02/12/17 13:42 36.1 88 17 156/72 98 Mask 10 02/12/17 08:52 37.7 92 20 141/60 (87) 95 Room Air Notes Mental Status: alert / awake / arousable, participated in evaluation Pt Amnestic to Procedure: Yes Nausea / Vomiting: adequately controlled Pain: adequately controlled Airway Patency, RR, SpO2: stable & adequate BP & HR: stable & adequate Hydration State: stable & adequate Anesthetic Complications: no major complications apparent
[2017-02-12] MEDS: SODIUM CHLORIDE 0.9% 1000ML 1,000 ML IV SCH (15:51)
[2017-02-12] MEDS: CLONAZEPAM 0.5 MG TAB PO SCH ×2 (17:25→21:55)
[2017-02-12] MEDS ORDERED: PHARMACY GLYCEMIC MGMT CONSULT PRN (17:58)
[2017-02-12] MEDS ORDERED: GLUCOSE 40% GEL 15 GM TUBE PO PRN (18:15)
[2017-02-12] MEDS ORDERED: GLUCOSE 10 TABS/TUBE PO PRN (18:15)
[2017-02-12] MEDS ORDERED: INSULIN GLARGINE SOLOSTAR 100 UNITS/ML 3 ML PEN SC SCH ×2 (18:15→22:15)
[2017-02-12] MEDS ORDERED: DEXTROSE 50% 50 ML SYR IV PRN (18:15)
[2017-02-12] MEDS ORDERED: GLUCAGON FOR INJ 1 MG VIAL SQ PRN (18:15)
[2017-02-12] MEDS: INSULIN ASPART 100 UNITS/ML 3 ML PEN SC SCH ×2 (18:39→22:04)
--- NOTE | 2017-02-12 19:00 | OPERATIVE REPORT ---
DATE OF OPERATION: 02/12/2017 PREOPERATIVE DIAGNOSIS: Carcinoma of the right breast. POSTOPERATIVE DIAGNOSIS: Same. PROCEDURE: Right mastectomy with exploration of the right axilla. SURGEON: Dr. Tsang. FOOD TECHNOLOGY TEACHER: Arianne Bello PA-C. FINDINGS: The breast was fibrotic in the inferior portion. The axilla was also fibrotic. The mass was not encountered. There was adequate blood supply to the skin flaps. In exploring the axilla, the patient had had the radiotracer injected in the periareolar region and then had blue dye. There was absolutely no blue dye in the axilla. The highest count both externally and after the mastectomy had begun. I was able to place the probe into, the axilla itself was 4 and those counts were very inconsistent. Previous discussion with the patient and with her family was that if sentinel nodes could not be identified, they did not want an axillary node dissection and so none was performed. TECHNIQUE: The patient was given a general anesthetic after the area had been marked in the preoperative area. The skin around the areola was cleansed with alcohol and Lymphazurin was injected in the periareolar region in the dermis. The area was then prepped and draped in usual sterile fashion. The incision had been sketched on the skin. The superior portion of the ellipse was created and carried down through to the subcutaneous tissue. There were large venous structures that were cauterized. The superior flap was then created, maintaining an ease in skin flap. It was dissected up to the level of the clavicle and over to the lateral border of the sternum and over towards the lateral border of pectoralis major. The inferior incision was then made as well. This was dissected and the skin flap created in a similar fashion. That was a little more difficult in that the inferior breast had a lot of fibrotic tissue. The skin was relatively adherent. I was able to establish a plane with skin flap with good blood supply. I eventually had to carry that down on to the rectus fascia in order to close the incision. Once that was created, I then entered the axilla. Using the Neoprobe, I attempted to identify a sentinel lymph node using the radiotracer but again there were essentially no counts. I then opened the axillary fascia and dissected in the inferior portion of the axilla and I tried to identify a blue node, but there was no blue dye either. Several areas were dissected and inspected, but again no counts were blue dye. There was 1 nodular area of fat that I did remove. This did not appear to be a lymph node, but I sent it for pathology. There was fibrotic adhesion of the tissues in the axilla as well. At that point we completed the mastectomy by opening the prepectoral fascia around the entire dissection area of the skin flaps. The prepectoral fascia was then peeled off the underlying pectoralis major muscle, working from medial to lateral. Once it was off the entire pectoralis muscle, the lateral skin dissection was completed, again significantly fibrotic subcutaneous tissue and the specimen was removed. It was marked with a stitch on the lateral end of the ellipse. Meticulous hemostasis was then obtained using electrocautery. A separate stab incision was made inferolateral to the incision through which a 10 mm Prabhjot-Hensley was brought, placed across the chest wall and secured with a 3-0 nylon. The incision was then closed with interrupted 2-0 Vicryl in the subcutaneous tissue. The superficial subcutaneous tissue was closed with running 3-0 Vicryl and the skin was closed with 4-0 Monocryl in a running subcuticular fashion. The skin was cleansed, dried, benzoin placed, Steri-Strips applied. Estimated blood loss was 75 mL. Sponge, needle and instrument counts were correct prior to closure. The patient tolerated the surgical procedure without complication and was transferred to recovery. I attest to the content of the Intraoperative Record and any orders documented therein. Any exception s are noted below.
--- NOTE | 2017-02-12 20:13 | Pharmacy Progress Note ---
Glycemic Control Intl Consult Date of Service Feb 12, 2017. Scope Glycemic Pharmacist consulted by Dr Thomas on 02/12/17 for glycemic control and to write orders per [facility] inpatient glycemic control protocol Objective Weight (Kilograms): 77.270 Accuchecks BSG (last 24hrs): Test 02/12/17 08:07 02/12/17 13:48 02/12/17 16:51 Bedside Glucose 160 mg/dl (70-90) 134 mg/dl (70-90) 215 mg/dl (70-90) HbA1c 7.2% on 02/09/17 Recent Pertinent Medications Outpatient Anti-diabetic Regimen: * Januvia 50mg PO QAM Risk Factors for Insulin Resistance: * Recent Surgery * Diet Assessment & Plan ASSESSMENT: * 76yo T2DM female s/p mastectomy * Pt is maintained on oral antidiabetic agent as an outpatient with adequate control per recent A1c * Oral agents are not recommended for inpatient use d/t drug interactions, changing PO intake, and difficulty titrating for acute hyper/hypoglycemia. ADA recommends re-initiating outpatient oral agents 1-2 days prior to discharge if/ when appropriate if they were held on admission. * Will hold oral agent for admission and utilize SQ basal bolus insulin regimen which is the recommended regimen for inpatient glycemic control. * Will initiate weight based insulin dosing for insulin erin patient and titrate based on BSG trends. * ADA & AACE recommend a goal blood sugar range 140-180 mg/dl for the majority of critically ill & non-critically ill patients. However, more stringent targets may be selected in individual cases. Will utilize more stringent goal of 110-140mg/dl based on baseline tight control. Additionally, tighter glycemic control is warranted to facilitate wound/infection healing. PLAN FOR INPATIENT GLYCEMIC CONTROL: * Holding outpatient oral diabetes medications * May consider resuming POD #1 or 2 after renal function is assessed and PO intake is adequate * Basal insulin * Lantus 15 units (0.2 units/kg) SQ Q24hrs * Bolus Insulin * NovoLog per scale ACHS or Q6hrs while NPO * Goal Range: Low 110 mg/dL - High 140 mg/dL * Correction Factor: 30 mg/dL/unit * Nutritional / Prandial insulin per carb ratio of 1 unit per 10 grams CHO consumed * Please note that the plan above was derived based on current level of insulin resistance and hospital stress. These recommendations are appropriate for inpatient admission only. Plan of care upon discharge will need to be reassessed to avoid potential outpatient hypo/hyperglycemia. Thank you.
[2017-02-12] MEDS ORDERED: CLONAZEPAM 0.5 MG TAB PO SCH (21:00)
[2017-02-12] MEDS: METOPROLOL TARTRATE 100 MG TAB PO SCH (21:52)
[2017-02-12] MEDS: PANTOprazole SOD 40 MG TAB PO SCH (21:53)
[2017-02-12] MEDS: HYDROCODONE/ACETAMOPHEN 5/325MG TAB PO PRN (21:55)
[2017-02-13] MEDS: HYDROCODONE/ACETAMOPHEN 5/325MG TAB PO PRN ×5 (01:55→21:31)
[2017-02-13] MEDS: SODIUM CHLORIDE 0.9% 1000ML 1,000 ML IV SCH ×2 (01:55→13:54)
[2017-02-13 04:03] VITALS: BP 126/69; PULSE 83; TEMP 36.7; O2SAT 93
[2017-02-13 08:00] VITALS: BP 106/60; PULSE 70; TEMP 36.2; O2SAT 92
[2017-02-13] MEDS: SENNA 8.6 MG TAB PO SCH (09:00)
[2017-02-13] MEDS: PANTOprazole SOD 40 MG TAB PO SCH ×2 (09:00→21:26)
[2017-02-13] MEDS: VENLAFAXINE HCL XR 150 MG CAPXR PO SCH (09:00)
[2017-02-13] MEDS: MULTIVITAMIN TAB PO SCH (09:00)
[2017-02-13] MEDS: METOPROLOL TARTRATE 100 MG TAB PO SCH ×2 (09:01→21:25)
[2017-02-13] MEDS: LISINOPRIL 2.5 MG TAB PO SCH (09:01)
[2017-02-13] MEDS: OXYBUTYNIN CHLORIDE 5 MG TABCR PO SCH (09:01)
[2017-02-13] MEDS ORDERED: INSULIN GLARGINE SOLOSTAR 100 UNITS/ML 3 ML PEN SC ONE (09:15)
[2017-02-13] MEDS: CLONAZEPAM 0.5 MG TAB PO SCH ×4 (10:02→21:25)
[2017-02-13] MEDS: SITAGLIPTIN 25 MG TAB PO SCH (10:02)
--- NOTE | 2017-02-13 10:07 | Surgery Progress Note ---
Surgery Progress Note Date of Service Feb 13, 2017. Subjective Post OP Day: 1 + feeling well, + pain controlled, + diet (regular diet), No complaints, No chest pain, No SOB, No nausea, No vomiting Objective Vital Signs: Date Time Temp Pulse Resp B/P (MAP) Pulse Ox O2 Delivery O2 Flow Rate FiO2 02/13/17 08:00 36.2 70 12 106/60 (75) 92 Room Air 02/13/17 08:00 92 Room Air 02/13/17 07:30 Room Air 02/13/17 04:03 36.7 83 18 126/69 (88) 93 Room Air 02/13/17 01:10 Room Air 02/12/17 22:50 37.1 98 18 120/69 (86) 91 Room Air 02/12/17 20:05 36.5 85 18 134/70 (91) 93 Room Air 02/12/17 17:45 37.2 88 18 147/78 (101) 93 Nasal Cannula 2.0 02/12/17 16:42 36.7 87 18 145/75 (98) 97 Nasal Cannula 2.0 02/12/17 15:50 Nasal Cannula 2.0 02/12/17 15:45 36.5 91 18 133/75 (94) 95 Nasal Cannula 2.0 02/12/17 15:15 36.9 88 18 152/80 (104) 93 Nasal Cannula 2.0 02/12/17 14:45 95 Nasal Cannula 2.0 02/12/17 14:45 36.5 89 18 146/77 (100) 95 Nasal Cannula 2.0 02/12/17 14:30 36.8 86 15 152/67 95 Nasal Cannula 2 02/12/17 14:20 90 18 142/65 97 Nasal Cannula 2 02/12/17 14:10 86 14 152/75 98 Mask 10 02/12/17 14:00 85 17 132/78 100 Mask 10 02/12/17 13:50 79 17 146/81 100 Mask 10 02/12/17 13:42 36.1 88 17 156/72 98 Mask 10 Physical Exam: ELLY drainage (serosanguineous) General Appearance: WD/WN, no apparent distress Head: normocephalic, atraumatic Neck: trachea midline Respiratory/Chest: no respiratory distress, no accessory muscle use Incision(s): clean, dry, intact, no erythema, no drainage, findings (steri strips present, no edema) Laboratory Results: Results Past 24 Hours Test 02/12/17 13:48 02/12/17 16:51 02/12/17 20:14 02/13/17 08:03 Range/Units Bedside Glucose 134 215 299 148 70-90 mg/dl Microbiology Results 02/12/17 MRSA DNA Surveillance Screen - Final, Complete Specimen Negative for MRSA by DNA Probe Assessment & Plan POD # 1 s/p right mastectomy with exploration of the right axilla - vitals stable - tolerating regular diet - pain minimal and controlled Plan ELLY drain teaching continue regular diet continue pain medication as needed Dressing to chest- ABD over incision, drain sponge and then surgical bra D/C [facility] to [facility] discharge instructions and restriction discussed Dr. Tsang has seen and examined patient agrees with above.
--- NOTE | 2017-02-13 10:12 | Discharge Instructions ---
Discharge Instructions Date of Service Feb 13, 2017. Admission Reason for Admission: Rt Breast -Malignant Neoplasm Of Upper-Outer Quad Discharge Discharge Diagnosis / Problem: same Discharge Goals Goal(s): Decrease discomfort, Improve function Activity Recommendations Activity Limitations: as noted below No heavy lifting with right arm over 10 pounds for 2 weeks No strenuous activity for 2 weeks No submerging incision underwater for 2 weeks (swimming, bathing, or hot tubs) No driving while taking narcotic pain medication or until you are pain free . Instructions / Follow-Up Instructions / Follow-Up wear surgical bra with ABDs over incision for a few weeks Keep record of ELLY drainage output, record how much and when you empty the drain Once the drainage is below 20 cc in 24 hours then it is time to have the drain removed You will need to make an appointment for drain removal once it is time, please call office at [phone] to make an appointment. You will have a follow-up in office in [address] Tsang, that should already be scheduled for you, if not please call [phone] to make that appointment as well Current Hospital Diet Patient's current hospital diet: Diabetes Type 2 Diet Discharge Diet Recommended Diet: Regular Diet Procedures Procedures Performed: Right Masectomy with exploration of right axilla Pending Studies Studies pending at discharge: yes List of pending studies: Pathology of right breast Laboratory Results Hemoglobin A1c Test 02/09/17 04:37 Range/Units Estimated Average Glucose 160 mg/dl Hemoglobin A1c 7.2 H 4.5-5.6 % Lipid Panel Test 02/09/17 04:37 Range/Units Triglycerides Level 642 H 0-150 mg/dl Cholesterol Level 190 0-200 mg/dl HDL Cholesterol 29 mg/dl Cholesterol/HDL Ratio 6.6 LDL Cholesterol, Calculated mg/dl Medical Emergencies . Who to Call and When: Medical Emergencies: If at any time you feel your situation is an emergency, please call 911 immediately. . Non-Emergent Contact Non-Emergency issues call your: Primary Care Provider, Surgeon Call Non-Emergent contact if: you have a fever, temperature is above 101.5, your pain is not controlled, your pain is worsening, wound has increased drainage, wound has increased redness, wound has increased pain . "Provider Documentation" section prepared by Arianne Bello. . VTE Core Measure Inpt VTE Proph given/why not?: SCD's [place] Drug Monitoring Program Search Results: patient reviewed within database, no issues identified
[2017-02-13] MEDS: INSULIN ASPART 100 UNITS/ML 3 ML PEN SC SCH ×4 (10:43→21:00)
--- NOTE | 2017-02-13 11:02 | Anesthesiology Progress Note ---
Anesthesia Post Op Note Date & Time Feb 13, 2017 at 11:01 Vital Signs Pain Intensity: 6.0 Vital Signs Past 12 Hours Date Time Temp Pulse Resp B/P (MAP) Pulse Ox O2 Delivery O2 Flow Rate FiO2 02/13/17 08:00 36.2 70 12 106/60 (75) 92 Room Air 02/13/17 08:00 92 Room Air 02/13/17 07:30 Room Air 02/13/17 04:03 36.7 83 18 126/69 (88) 93 Room Air 02/13/17 01:10 Room Air Notes Mental Status: alert / awake / arousable, participated in evaluation Pt Amnestic to Procedure: Yes Nausea / Vomiting: adequately controlled Pain: adequately controlled Airway Patency, RR, SpO2: stable & adequate BP & HR: stable & adequate Hydration State: stable & adequate Anesthetic Complications: no major complications apparent
--- NOTE | 2017-02-13 11:15 | Pharmacy Progress Note ---
Glycemic Control Progress Note Date of Service Feb 13, 2017. Scope Glycemic Pharmacist consulted for glycemic control to write orders per [facility] inpatient glycemic control protocol. Objective Accuchecks BSG (last 24hrs): Test 02/12/17 13:48 02/12/17 16:51 02/12/17 20:14 02/13/17 08:03 Bedside Glucose 134 mg/dl (70-90) 215 mg/dl (70-90) 299 mg/dl (70-90) 148 mg/dl (70-90) Recent Pertinent Medications The patient is currently receiving: * Basal insulin: Lantus 30 units total yesterday * Correctional Insulin: Novolog Correction per scale ACHS Goal Range: Low 110 mg/dL - High 140 mg/dL Correction Factor: 20 mg/dL/unit * Prandial insulin: Per carb ratio of 1 unit per 7 grams CHO consumed * Oral Agents: None at this time Outpatient Anti-Diabetic Meds Januvia 50 mg daily Assessment & Plan ASSESSMENT: * See progress note from 02/12 for more background info, in short: * Pt receiving SQ basal bolus insulin regimen for hyperglycemia secondary to baseline DM (outpatient regimen on hold), recent surgery, steroids * Patient received 48 units of insulin yesterday w/ BSGs ranging from 134-299 mg /dL in the past 24 hours * Decadron may still be hanging around today but should start to wear off. Will plan to resume Januvia in preparation for discharge. In addition, will reduce Lantus dose to 10 units this AM only (~stress of 1 using patient's wt and insulin SQ calculator). I had planned to loosen the CF/CR with this AM's dose of Novolog but the nurse had already given the dose so will loosen w/ lunch based on stress level of 2. PLAN FOR INPATIENT GLYCEMIC CONTROL: * Reduce Lantus to 10 units SQ this AM only * LOOSEN correction factor to 30 mg/dl/unit * LOOSEN carb ratio to 1 unit per 10 grams CHO consumed * Continue goal range of Low 110 mg/dL - High 140 mg/dL * Restart Januvia 50 mg daily RECOMMENDATIONS FOR DISCHARGE: * A1c indicates good outpatient control. Continue Januvia. Thank you.
[2017-02-13 12:00] VITALS: BP 104/60; PULSE 68; TEMP 37.4; O2SAT 94
[2017-02-13 15:38] VITALS: BP 116/73; PULSE 69; TEMP 37; O2SAT 95
[2017-02-13 23:13] VITALS: BP 138/72; PULSE 104; TEMP 38.2; O2SAT 91
[2017-02-14] MEDS: SODIUM CHLORIDE 0.9% 1000ML 1,000 ML IV SCH (00:51)
[2017-02-14 01:00] VITALS: BP 127/70; PULSE 110; TEMP 38.2; O2SAT 92
[2017-02-14] MEDS: HYDROCODONE/ACETAMOPHEN 5/325MG TAB PO PRN ×3 (01:28→12:13)
[2017-02-14 07:20] VITALS: O2SAT 94
[2017-02-14 07:34] VITALS: BP 145/70; PULSE 68; TEMP 36.7; O2SAT 94
[2017-02-14 08:00] VITALS: BP 118/70; TEMP 37.1; O2SAT 94
[2017-02-14 08:47] VITALS: BP 118/70; PULSE 68; TEMP 37.1; O2SAT 94
[2017-02-14] MEDS ORDERED: HYDR-5688 PO (08:49)
[2017-02-14] MEDS: SENNA 8.6 MG TAB PO SCH (09:00)
--- NOTE | 2017-02-14 09:30 | Surgery Progress Note ---
Surgery Progress Note Date of Service Feb 14, 2017. Subjective Post OP Day: 2 + feeling well ("cold and tired this morning"), + pain controlled, + diet ( regular diet), No nausea, No vomiting Had fever last night, nothing this am Objective Vital Signs: Date Time Temp Pulse Resp B/P (MAP) Pulse Ox O2 Delivery O2 Flow Rate FiO2 02/14/17 08:47 37.1 68 12 94 Room Air 02/14/17 08:00 37.1 12 118/70 (86) 94 Room Air 02/14/17 08:00 94 Room Air 02/14/17 07:34 36.7 68 14 145/70 (95) 94 Room Air 02/14/17 07:20 94 Room Air 02/14/17 01:00 38.2 110 16 127/70 (89) 92 Room Air 02/14/17 00:45 Room Air 02/13/17 23:13 38.2 104 17 138/72 (94) 91 Room Air 02/13/17 16:15 Room Air 02/13/17 15:38 37.0 69 18 116/73 (87) 95 Room Air 02/13/17 12:00 37.4 68 14 104/60 (75) 94 Room Air General Appearance: WD/WN, no apparent distress Head: normocephalic, atraumatic Neck: trachea midline Respiratory/Chest: no respiratory distress, no accessory muscle use Incision(s): clean, dry, intact, no erythema, no drainage, findings (steri strips present and intact, ELLY drain with serosanguienous drainage, incision nontender on examination, no edema) Laboratory Results: Results Past 24 Hours Test 02/13/17 11:58 02/13/17 17:33 02/13/17 20:59 02/13/17 23:41 Range/Units Bedside Glucose 116 122 113 123 70-90 mg/dl Test 02/14/17 08:30 Range/Units Bedside Glucose 127 70-90 mg/dl Assessment & Plan POD # 2 s/p right mastectomy with exploration of the right axilla - vitals stable, febrile last night but nothing since - tolerating regular diet - pain minimal and controlled Plan d/c back to [facility] this morning discharge instructions and follow-up given and typed out for patient Rx for [place] given Follow-up with Dr. Tsang in 2 weeks May need earlier office visit for ELLY drain removal if output less than 20 cc in [address] Thomas has seen and examined patient agrees with above.
[2017-02-14] MEDS: SITAGLIPTIN 25 MG TAB PO SCH (09:47)
[2017-02-14] MEDS: VENLAFAXINE HCL XR 150 MG CAPXR PO SCH (09:47)
[2017-02-14] MEDS: LISINOPRIL 2.5 MG TAB PO SCH (09:47)
[2017-02-14] MEDS: MULTIVITAMIN TAB PO SCH (09:47)
[2017-02-14] MEDS: OXYBUTYNIN CHLORIDE 5 MG TABCR PO SCH (09:47)
[2017-02-14] MEDS: CLONAZEPAM 0.5 MG TAB PO SCH ×2 (09:49→12:12)
[2017-02-14] MEDS: INSULIN ASPART 100 UNITS/ML 3 ML PEN SC SCH ×2 (09:57→13:23)
[2017-02-14] MEDS: PANTOprazole SOD 40 MG TAB PO SCH (10:59)
[2017-02-14] MEDS: METOPROLOL TARTRATE 100 MG TAB PO SCH (10:59)
[2017-02-14 12:00] VITALS: BP 120/66; PULSE 72; TEMP 37; O2SAT 95
--- NOTE | 2017-02-19 09:20 | Discharge Summary ---
Discharge Summary Dates Admission Date / Time: Feb 12, 2017 at 08:00 Discharge Date: Feb 14, 2017 Dispostion / Condition Discharge Disposition: assisted facility Condition at Discharge: Good Principal Diagnosis (1) Breast cancer in female Problem List (1) Breast cancer in female Consultations / Procedures Consultations: None Procedures: Right mastectomy with attempt at right sentinel lymph node biopsy (0 nodes found ) Medication Reconciliation New Medications: Hydrocodone/Acetaminophen 5MG/325MG ([place] 5MG/325MG) Tab 1-2 TAB PO Q4H PRN for RN, #30 TAB 0 Refills PRN PAIN Continued Medications: Acetaminophen (Mapap) 325 Mg Tab 1300 MG PO BID PRN for PAIN OR TEMP Aspirin (Ecotrin Low Strength) 81 Mg Tab 81 MG PO QAM Bisacodyl (Dulcolax) 10 Mg Sup 1 SUPP DE UD PRN for RN, SUP Cholecalciferol (Vitamin D) 1,000 Inter.unit Tab 1000 INTER.UNIT PO QAM, TAB Clonazepam (Klonopin) 0.5 Mg Tab 0.5 MG PO NOON/HS, TAB Clonazepam (Klonopin) 0.5 Mg Tab 0.25 MG PO BID, TAB Docusate Sodium (Colace) 100 Mg Cap 1 CAP PO BID PRN for Constipation for 30 Days, #60 CAP Fentanyl (Duragesic) 50 Mcg/ Dis 50 MCG TD [id number], PATCH Lisinopril (Prinivil) 5 Mg Tab 2.5 MG PO QAM, TAB Metoprolol Tartrate (Lopressor) 100 Mg Tab 100 MG PO BID, TAB Miconazole Nitrate (Topical) (Aloe [place] Antifungal) 2 % Oin 1 DOSE TOP BID Multivitamin (Multivitamin) Tab 1 TAB PO QAM, TAB Nortriptyline (Pamelor) 50 Mg Cap 50 MG PO HS, CAP Omeprazole (Prilosec) 40 Mg Capcr 40 MG PO BID, CAP Oxybutynin Chloride (Ditropan Xl) 5 Mg Tab 5 MG PO QAM for 30 Days, #30 TAB 5 Refills Petrolatum-Zinc Oxide (Sensi-Care Protective Bar) 1 Oin Oin 1 DOSE TOP Q8H Senna (Senokot) 8.6 Mg Tab 1 TAB PO QAM, TAB Sitagliptin (Januvia) 50 Mg Tab 50 MG PO QAM, TAB Venlafaxine Hcl (Effexor Xr) 150 Mg Cap 150 MG PO QAM for 30 Days, #30 CAP 1 Refill ADD TO 37.5 MG FOR 187.5 MG TOTAL Venlafaxine Hcl (Effexor) 37.5 Mg Tab 37.5 MG PO QAM for 30 Days, #30 TAB 1 Refill ADD TO 150 MG DOSE FOR TOTAL 187.5 MG [Skin Barrier Wipes] () 1 DOSE TOP QPM Discontinued Medications: Hydrocodone/Acetaminophen 5MG/325MG ([place] 5MG/325MG) Tab 1 TABLET PO Q4H PRN for RN, TAB PRN PAIN Admission HPI Per the Admitting provider: 76 year-old female with 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 Tsang. She was scheduled for the proposed procedure and presented for surgery on 2016. Hospital Course (1) Breast cancer in female Patient presented for proposed right mastectomy with sentinel lymph node biopsy. The right axilla was explored however no lymph nodes were found. An axillary dissection was not performed given the requests of the patient. She tolerated procedure well without any complications and was transferred to recovery in stable condition. Her post op orders included regular diet, IV pain medication, po pain medication, home medications, surgical bra, and one kamla drain to bulb suction. POD # 1 patient's pain was controlled with oral pain medications, tolerating regular diet, urinating without difficulty, and there was serosanguineous drainage present in KAMLA drain. Overall she felt well and wanted to go back to the nursing facility however transport was not available until the following morning therefore she had to stay one more evening. POD # 2 , she was febrile overnight but resolved and nothing since, incision with no erythema, urinating without difficulty, tolerating regular diet and pain controlled with po Percocet. She was being discharged by to [facility] in the afternoon due to transportation schedule. KAMLA drain teaching prior to discharge. Overall hospital course was uneventful. Discharge Instructions as given to patient KAMLA drain will need removed if less than 20 cc in 24 hour time period, advised to call office when this occurs Copies To Primary Care Provider: Paul Deng M.D.. Problem Qualifiers (1) Breast cancer in female: Laterality: right
== END 2017-02-14 14:45 ==
LOC: C.ACU 07:33 → C.MSW 08:00 → ENRESERV 14:09
PROVIDERS: ADMIT Surgery; ATTEND Surgery
DX: C50.211 Malignant neoplasm of upper-inner quadrant of right female breast (principal); E11.9 Type 2 diabetes mellitus without complications; I10 Essential (primary) hypertension; E78.5 Hyperlipidemia, unspecified; E55.9 Vitamin D deficiency, unspecified; I87.2 Venous insufficiency (chronic) (peripheral); F41.9 Anxiety disorder, unspecified; F32.9 Major depressive disorder, single episode, unspecified; Z66 Do not resuscitate; Z86.718 Personal history of other venous thrombosis and embolism; Z79.82 Long term (current) use of aspirin; Z79.899 Other long term (current) drug therapy

== ENCOUNTER → 2017-02-21 | Outpatient (CLI) | payer BC ==
[~2017-02-21] MED LIST changes: -ALBINS/ INH; +AMOX875T PO; +ATOR-24 PO; +CHOL1000 PO; +DOXY1TAB6 PO; +FENT75DI2 TP; -GUAI-13 PO; -LACTATED RINGER'S 1000ML 1,000 ML IV SCH; +LISI-789 PO; -MENTOIN TOP; -MOML PO; +OMEP20TA PO; -PROM25TA9 PO; -SODIENE PR; +VENL37.593 PO; -WITCPAD TOP; -[UNRECOGNIZED DRUG - SUPPLY] TOP
== END | disposition home or self-care (01) ==
LOC: C.LABCC 09:43
PROVIDERS: ATTEND Internal Medicine
DX: E78.5 Hyperlipidemia, unspecified (principal)

== ENCOUNTER → 2017-03-01 | Outpatient (CLI) | payer BC ==
[2017-03-01 09:06] LABS: BASO % 0.2 %; BASO ABS # 0.02 K/uL (0-0.2); COMPLETE YES; EOS % 2.4 %; HEMATOCRIT 33.8 % (37-47); IG% 0.2 %; LYMPH % 20.5 %; LYMPH ABS # 1.95 K/uL (1.2-3.4); MEAN CELL VOLUME 92.3 fL (80-100); MEAN CORPUSCULAR HEMOGLOBIN 28.7 pg (25-34); MEAN CORPUSCULAR HGB CONC 31.1 g/dl (32-36); MEAN PLATELET VOLUME 9.2 fL (7.4-10.4); MONO % 12.3 %; NEUT % 64.4 %; PLATELET COUNT 280 K/uL (130-400); RED BLOOD COUNT 3.66 M/uL (4.2-5.4); WHITE BLOOD COUNT 9.51 K/uL (4.8-10.8)
== END ==
LOC: C.LABCC 08:40
PROVIDERS: ATTEND Internal Medicine
DX: D64.9 Anemia, unspecified (principal)

== ENCOUNTER → 2017-03-02 | Outpatient (CLI) | payer BC ==
[2017-03-02 08:30] LABS: BASO % 0.3 %; BASO ABS # 0.03 K/uL (0-0.2); COMPLETE YES; EOS % 2.5 %; HEMATOCRIT 32.8 % (37-47); IG% 0.4 %; LYMPH % 22.3 %; LYMPH ABS # 2.17 K/uL (1.2-3.4); MEAN CELL VOLUME 91.9 fL (80-100); MEAN CORPUSCULAR HEMOGLOBIN 29.1 pg (25-34); MEAN CORPUSCULAR HGB CONC 31.7 g/dl (32-36); MEAN PLATELET VOLUME 9.3 fL (7.4-10.4); MONO % 12.5 %; PLATELET COUNT 284 K/uL (130-400); RED BLOOD COUNT 3.57 M/uL (4.2-5.4); WHITE BLOOD COUNT 9.71 K/uL (4.8-10.8)
== END ==
LOC: C.LABCC 07:55
PROVIDERS: ATTEND Internal Medicine
DX: D64.9 Anemia, unspecified (principal)

== ENCOUNTER → 2017-03-06 | Outpatient (CLI) | payer BC ==
[2017-03-06 11:49] LABS: BASO % 0.5 %; BASO ABS # 0.04 K/uL (0-0.2); COMPLETE YES; EOS % 3.2 %; HEMATOCRIT 33.8 % (37-47); IG% 0.3 %; LYMPH % 27.3 %; LYMPH ABS # 2.02 K/uL (1.2-3.4); MEAN CELL VOLUME 92.3 fL (80-100); MEAN CORPUSCULAR HEMOGLOBIN 29.2 pg (25-34); MEAN CORPUSCULAR HGB CONC 31.7 g/dl (32-36); MEAN PLATELET VOLUME 9.1 fL (7.4-10.4); MONO % 13.2 %; NEUT % 55.5 %; PLATELET COUNT 254 K/uL (130-400); RED BLOOD COUNT 3.66 M/uL (4.2-5.4)
[2017-03-06 12:08] LABS: FERRITIN 59.5 ng/ml (8.0-388.0)
--- NOTE | 2017-03-12 10:16 | CODING QUERY MEDICAL NECESSITY ---
SUPPORTING DIAGNOSIS NEEDED Dr. Atkinson, A supporting diagnosis is required for the test/procedure performed on this patient in order for us to be reimbursed by the patient's insurance. Please provide a supporting diagnosis for the following test/procedure listed below next to the test name along with your signature. *If there is no additional diagnosis for this patient that would support the following test/procedure please document that below next to the test/procedure. Test(s)/Procedure(s) that require a supporting diagnosis: * ([id number]) B12 VITAMIN LEVEL DIAGNOSIS: * ([id number]) FOLATE LEVEL DIAGNOSIS: DATE OF SERVICE: 03/06/17 Provider Signature: Date: Thank you Omer Queen [facility] Information Management Once completed, please kindly fax back to [phone] For questions please call [phone]
== END ==
LOC: C.LABCC 11:24
PROVIDERS: ATTEND Internal Medicine
DX: D64.9 Anemia, unspecified (principal)

== ENCOUNTER 2017-03-19 12:41 | Inpatient (IN) | payer BC, OTHER ==
[~2017-03-19] VITALS: Ht 154.9 cm; Wt 79.1 kg
[~2017-03-19 12:41] MED LIST changes: -AMOX875T PO; -ATOR-24 PO; -CHOL1000 PO; -DOXY1TAB6 PO; -FENT75DI2 TP; -LISI-789 PO; -OMEP20TA PO; -VENL37.593 PO
[2017-03-19] MEDS ORDERED: FENT75DI2 TP (13:47)
[2017-03-19] MEDS ORDERED: ATOR-24 PO (13:47)
[2017-03-19] MEDS ORDERED: HYDR-5688 PO (13:47)
[2017-03-19] MEDS ORDERED: OMEP20TA PO (13:47)
[2017-03-19] MEDS ORDERED: CHOL1000 PO (13:47)
[2017-03-19] MEDS ORDERED: LISI-789 PO (13:47)
[2017-03-19] MEDS ORDERED: SODIUM CHLORIDE 0.9% 1000ML 1,000 ML IV STA (13:50)
[2017-03-19] MEDS ORDERED: PIPERACILLIN/TAZOBACTAM 4.5 GM/100ML D5W IV STA (13:50)
[2017-03-19] MEDS ORDERED: SODIUM CHLORIDE 0.9% 1000ML 500 ML IV ONE (13:50)
--- NOTE | 2017-03-19 13:57 | EMERGENCY ROOM VISIT NOTE ---
History Report prepared by Shady: Toya Mcgill Under the Supervision of: Dr. Jase Duff M.D. First contact with patient: 13:45 Chief Complaint: OTHER COMPLAINT History of Present Illness The patient is a 76 year old female who presents to the Emergency Room with complaints of a worsening infection to her right breast that began yesterday. She currently rates her discomfort as a 3/10 in severity. The patient states that on 02/22/17 she had a right mastectomy for right breast cancer. She states that things have been going well since the procedure, but notes that she would intermittently notice an itch to the surgical site. The patient states that yesterday she looked down and noticed a lump. She states that she consulted her home nurses who came in to evaluate the area. The patient states that they agreed that the area did not look good and she was scheduled for an appointment with her doctor today. She states that she did not see her doctor today and was sent to the emergency department due to concerns for worsening infection. Today, the patient reports right breast soreness. She denies being on any current antibiotics. The patient denies any cardiac history. The patient denies any fever, chills, or vomiting. Source of History: patient Onset: yesterday Position: other (right breast) Symptom Intensity: 3/10 Quality: other (infection) Timing: worsening Associated Symptoms: No fevers, No chills, No nausea Note: Associated Symptoms: right breast soreness. Review of Systems See HPI for pertinent positives & negatives. A total of 10 systems reviewed and were otherwise negative. Past Medical & Surgical Medical Problems: (1) Breast cancer in female (2) Depression (3) DIAB W NEURO MANIFEST, TYPE II OR UNSPEC TYPE, NOT UNCNTRLD (4) FALL NEC (5) PERSONAL HX OF TIA,& CEREBRAL INFARCTION W/OUT RES DEFICITS Family History Cancer Social History Smoking Status: Never Smoker Alcohol Use: none Marital Status: single Housing Status: assisted living Occupation Status: employed Current/Historical Medications Scheduled Aspirin (Ecotrin Low Strength), 81 MG PO QAM Atorvastatin (Lipitor), 40 MG PO DAILY Cholecalciferol (Vitamin D3), 1,000 INTER.UNIT PO DAILY Clonazepam (Klonopin), 0.5 MG PO QID Docusate Sodium (Colace), 1 CAP PO BID Fentanyl (Fentanyl), 75 MCG TP [id number] Lisinopril (Zestril), 2.5 MG PO QAM Metoprolol Tartrate (Lopressor), 100 MG PO BID Multivitamin (Multivitamin), 1 TAB PO QAM Nortriptyline (Pamelor), 50 MG PO HS Omeprazole (Omeprazole), 40 MG PO BID Oxybutynin Chloride (Ditropan Xl), 5 MG PO QAM Senna (Senokot), 1 TAB PO QAM Sitagliptin (Januvia), 50 MG PO QAM Venlafaxine Hcl (Effexor Xr), 150 MG PO QAM Venlafaxine Hcl (Effexor), 37.5 MG PO QAM Scheduled PRN Acetaminophen (Mapap), 1,300 MG PO BID PRN for PAIN OR TEMP Hydrocodone/Acetaminophen 5MG/325MG ([place] 5MG/325MG), 1 TABLET PO Q4 PRN for Moderate Pain Hydrocodone/Acetaminophen 5MG/325MG ([place] 5MG/325MG), 2 TABLETS PO Q4 PRN for Severe Pain Allergies Coded Allergies: Latex1 -Allergic Contact Dermititis (Verified Allergy, Unknown, ARMS SWELLED, 02/12/17) NSAIDs (Verified Allergy, Unknown, UNKNOWN REACTION, 02/12/17) PER RECORDS Aspirin (Verified Adverse Reaction, Mild, N/V, 02/12/17) Morphine (Verified Adverse Reaction, Mild, N/V; PATIENT TOLERATES DILAUDID IV, 02/12/17) Oxycodone (Verified Adverse Reaction, Mild, N/V; PATIENT TOLERATES DILAUDID IV, 02/12/17) Replaces ROXICET SOLN Physical Exam Vital Signs Date Time Temp Pulse Resp B/P (MAP) Pulse Ox O2 Delivery O2 Flow Rate FiO2 03/19/17 15:09 66 16 122/54 95 Room Air 03/19/17 14:22 64 18 121/62 96 Room Air 03/19/17 14:01 94 Room Air 03/19/17 12:46 37.3 72 18 120/52 94 Room Air Physical Exam GENERAL: Patient is in no acute distress. HEENT: No acute trauma, normocephalic atraumatic, mucous membranes moist, no nasal congestion, no scleral icterus. NECK: No stridor, no adenopathy, no meningismus, trachea is midline. CHEST WALL: Right chest wall is erythematous and warm, no drainage. Redness appears to surround the mastectomy incision. LUNGS: Clear to auscultation bilaterally, no wheeze, no rhonchi, breath sounds equal. HEART: 3/6 systolic murmur, regular rate and rhythm. ABDOMEN: Soft, nontender, bowel sounds positive, no hernias, no peritonitis. EXTREMITIES: No cyanosis or edema, full range of motion of all the joints without pain or difficulty, no signs for acute trauma. NEUROLOGIC: Oriented x 3, no acute motor or sensory deficits, no focal weakness. SKIN: No rash, no jaundice, no diaphoresis. Medical Decision & Procedures ER Provider Diagnostic Interpretation: Radiology results as stated below per my review and radiologist interpretation: CHEST ONE VIEW PORTABLE CLINICAL HISTORY: Sepsis dyspnea COMPARISON STUDY: 09/12/2014 FINDINGS: Small parenchymal infiltrate left base. Lungs otherwise appear clear. Extensive stabilization hardware in the thoracolumbar spine. IMPRESSION: Small parenchymal infiltrate left base. The above report was generated using voice recognition software. It may contain grammatical, syntax or spelling errors. Electronically signed by: Ranjeet Lund M.D. 03/19/2017 2:24 PM Dictated Date/Time: 03/19/2017 2:23 PM Chest wall ultrasound: IMPRESSION: 1. Complex septated fluid collection measuring 13.1 x 3.3 x 6.0 cm could represent a hematoma, which is favored over seroma given the complexity. Superimposed infection cannot be excluded. Laboratory Results 03/19/17 14:05 Red Blood Count 3.71, Mean Corpuscular Volume 90.6, Mean Corpuscular Hemoglobin 29.4, Mean Corpuscular Hemoglobin Concent 32.4, Mean Platelet Volume 9.1, Neutrophils (%) (Auto) 64.6, Lymphocytes (%) (Auto) 19.5, Monocytes (%) (Auto) 12.9, Eosinophils (%) (Auto) 2.4, Basophils (%) (Auto) 0.3, Neutrophils # (Auto ) 5.11, Lymphocytes # (Auto) 1.54, Monocytes # (Auto) 1.02, Eosinophils # (Auto ) 0.19, Basophils # (Auto) 0.02 03/19/17 14:05 Test 03/19/17 14:05 03/19/17 14:14 White Blood Count 7.90 K/uL (4.8-10.8) Red Blood Count 3.71 M/uL (4.2-5.4) Hemoglobin 10.9 g/dL (12.0-16.0) Hematocrit 33.6 % (37-47) Mean Corpuscular Volume 90.6 fL (80-100) Mean Corpuscular Hemoglobin 29.4 pg (25-34) Mean Corpuscular Hemoglobin Concent 32.4 g/dl (32-36) Platelet Count 206 K/uL (130-400) Mean Platelet Volume 9.1 fL (7.4-10.4) Neutrophils (%) (Auto) 64.6 % Lymphocytes (%) (Auto) 19.5 % Monocytes (%) (Auto) 12.9 % Eosinophils (%) (Auto) 2.4 % Basophils (%) (Auto) 0.3 % Neutrophils # (Auto) 5.11 K/uL (1.4-6.5) Lymphocytes # (Auto) 1.54 K/uL (1.2-3.4) Monocytes # (Auto) 1.02 K/uL (0.11-0.59) Eosinophils # (Auto) 0.19 K/uL (0-0.5) Basophils # (Auto) 0.02 K/uL (0-0.2) RDW Standard Deviation 49.4 fL (36.4-46.3) RDW Coefficient of Variation 14.9 % (11.5-14.5) Immature Granulocyte % (Auto) 0.3 % Immature Granulocyte # (Auto) 0.02 K/uL (0.00-0.02) Prothrombin Time 10.6 SECONDS (9.0-12.0) Prothromb Time International Ratio 1.0 (0.9-1.1) Activated Partial Thromboplast Time 28.4 SECONDS (21.0-31.0) Partial Thromboplastin Ratio 1.1 Anion Gap 6.0 mmol/L (3-11) Est Creatinine Clear Calc Drug Dose 50.6 ml/min Estimated GFR () 72.0 Estimated GFR (Non- 62.1 BUN/Creatinine Ratio 15.4 (10-20) Calcium Level 8.9 mg/dl (8.5-10.1) Total Bilirubin 0.3 mg/dl (0.2-1) Aspartate Amino Transf (AST/SGOT) 20 U/L (15-37) Alanine Aminotransferase (ALT/SGPT) 19 U/L (12-78) Alkaline Phosphatase 102 U/L (45-117) Total Protein 6.9 gm/dl (6.4-8.2) Albumin 2.7 gm/dl (3.4-5.0) Globulin 4.2 gm/dl (2.5-4.0) Albumin/Globulin Ratio 0.6 (0.9-2) Bedside Lactic Acid Venous 1.61 mmol/L (0.90-1.70) Laboratory results reviewed by me. Medications Administered Medications (Trade) Dose Ordered Sig/Sebas Route Start Time Stop Time Status Last Admin Dose Admin Sodium Chloride 500 ml @ 999 mls/hr Q31M ONCE IV 03/19/17 13:50 03/19/17 14:20 DC 03/19/17 14:24 999 MLS/HR Piperacillin Sod/ Tazobactam Sod (Zosyn Iv) 4.5 gm ONE STAT IV 03/19/17 13:50 03/19/17 13:54 DC 03/19/17 14:24 4.5 GM ECG Indication: other (infection) Rate (beats per minute): 69 Rhythm: sinus rhythm Findings: PAC, no acute ischemic change ED Course 1346: The patient was evaluated in room C9. A complete history and physical exam was performed. 1350: Ordered Sodium Chloride 1000 ml @ 125 mls/hr IV, Zosyn IV 4.5 gm IV, Sodium Chloride 500 ml @ 999 mls/hr IV. 1408: I discussed the patients case with Dr. Tsang, General Surgery. He asked if the patient would be staying or going home. He states that once we know a disposition, to call him back to make a decision. 1555: I spoke again to Dr. Tsang, hospitalization was advised. The on-call hospitalist was CONSULTED. Medical Decision The patient is a 76 year old female who presents to the ED with complaints of right breast infection. Differential diagnoses considered include Cellulitis, abscess, sepsis or bacteremia, dehydration, electrolyte imbalance, UTI. There is no leukocytosis or concerning anemia. No significant electrolyte abnormality, kidney failure or hepatitis. Lactic acid level is not elevated making severe sepsis less likely. Blood cultures are pending. Chest film showed a potential infiltrate versus atelectasis at the left base-of note, the patient is not having any cough or shortness of breath. Chest wall ultrasound demonstrates a fluid collection which could be hematoma, seroma or abscess. The patient received IV saline, IV Zosyn. She seems comfortable. The patient appears to have a cellulitis and/or abscess in the area of her recent mastectomy. I did speak with Dr. Tsang of surgery about the case. Admission/observation was recommended. I talked to the patient and case management. I did speak with the on-call hospitalist. Medication Reconcilliation Current Medication List: was personally reviewed by me Blood Pressure Screening Patient's blood pressure: Normal blood pressure Blood pressure disposition: Did not require urgent referral Consults Time Called: 1400 Consulting Physician: Dr. Tsang, General Surgery Returned Call: 1408 discussed the patients case with Dr. Tsang, General Surgery. He asked if the patient would be staying or going home. He states that once we know a disposition, to call him back to make a decision. Impression Primary Impression: Cellulitis of chest wall Additional Impression: Status post mastectomy Scribe Attestation The scribe's documentation has been prepared under my direction and personally reviewed by me in its entirety. I confirm that the note above accurately reflects all work, treatment, procedures, and medical decision making performed by me. Departure Information Dispostion Being Evaluated By Surgeon Referrals [facility] (PCP) Patient Instructions My [facility] Health Problem Qualifiers
[2017-03-19 14:24] LABS: BASO % 0.3 %; BASO ABS # 0.02 K/uL (0-0.2); COMPLETE YES; EOS % 2.4 %; HEMATOCRIT 33.6 % (37-47); IG% 0.3 %; LYMPH % 19.5 %; LYMPH ABS # 1.54 K/uL (1.2-3.4); MEAN CELL VOLUME 90.6 fL (80-100); MEAN CORPUSCULAR HEMOGLOBIN 29.4 pg (25-34); MEAN CORPUSCULAR HGB CONC 32.4 g/dl (32-36); MEAN PLATELET VOLUME 9.1 fL (7.4-10.4); MONO % 12.9 %; NEUT % 64.6 %; PLATELET COUNT 206 K/uL (130-400); RED BLOOD COUNT 3.71 M/uL (4.2-5.4)
--- NOTE | 2017-03-19 14:25 | DIAGNOSTIC IMAGING REPORT ---
CHEST ONE VIEW PORTABLE CLINICAL HISTORY: Sepsis dyspnea COMPARISON STUDY: 09/12/2014 FINDINGS: Small parenchymal infiltrate left base. Lungs otherwise appear clear. Extensive stabilization hardware in the thoracolumbar spine. IMPRESSION: Small parenchymal infiltrate left base. The above report was generated using voice recognition software. It may contain grammatical, syntax or spelling errors. Electronically signed by: Ranjeet Lund M.D. 03/19/2017 2:24 PM Dictated Date/Time: 03/19/2017 2:23 PM
[2017-03-19 14:33] LABS: PARTIAL THROMBOPLASTIN RATIO 1.1; PROTHROMBIN TIME (PATIENT) 10.6 SECONDS (9.0-12.0)
[2017-03-19 14:35] LABS: BUN/CREATININE RATIO 15.4 (10-20); CALCIUM 8.9 mg/dl (8.5-10.1); CREATININE 0.9 mg/dl (0.60-1.20); POTASSIUM 4.4 mmol/L (3.5-5.1)
[2017-03-19 14:38] LABS: ALB/GLOB RATIO 0.6 (0.9-2)
--- NOTE | 2017-03-19 15:42 | DIAGNOSTIC IMAGING REPORT ---
BREAST LIMITED UNILATERAL CLINICAL HISTORY: 76 years-old Female presenting with mastectomy and possible abscess, redness. TECHNIQUE: Real-time grayscale ultrasound imaging of the right breast was performed. Color Doppler was also performed. COMPARISON: None. FINDINGS: A complex septated anechoic collection measuring 13.1 x 3.3 x 6.0 cm is noted in the right breast at the mastectomy site. No significant hyperemia surrounding this collection on color Doppler. IMPRESSION: 1. Complex septated fluid collection could represent a hematoma, which is favored over seroma given the complexity. Superimposed infection cannot be excluded. Electronically signed by: Freddie Sanchez M.D. 03/19/2017 3:41 PM Dictated Date/Time: 03/19/2017 3:39 PM
[2017-03-19] MEDS ORDERED: HYDROCODONE/ACETAMOPHEN 5/325MG TAB PO PRN (16:30)
[2017-03-19] MEDS ORDERED: ACETAMINOPHEN 325 MG TAB PO PRN (16:30)
[2017-03-19] MEDS: CLONAZEPAM 0.5 MG TAB PO SCH ×2 (17:00→21:58)
--- NOTE | 2017-03-19 17:07 | Medical Consult ---
Consultation Date of Consultation: Mar 19, 2017. Attending Physician: Reason for Consultation: Medical management History of Present Illness The patient is a 76 year old female who presents to the ER with complaints of a worsening redness and itchiness to her right breast that began yesterday. Pt reports right mastectomy on 02/22/[address] Tsang. States no fevers, and notes itchiness and redness that started yesterday. Pt denies any drainage from the site. She states that she consulted her home nurses who came in to evaluate the area. The patient states that they agreed that the area did not look good and she was scheduled for an appointment with Dr Tsang. Pt admitted to Dr Tsang and consulted to our services for medical management. Past Medical/Surgical History Medical Problems: (1) Cellulitis of chest wall Status: Acute Social History Problems: (1) Status post mastectomy Status: Acute Family History Cancer Social History Smoking Status: Never Smoker Drug Use: none Marital Status: single Housing Status: assisted living Occupation Status: employed Allergies Coded Allergies: Latex1 -Allergic Contact Dermititis (Verified Allergy, Unknown, ARMS SWELLED, 02/12/17) NSAIDs (Verified Allergy, Unknown, UNKNOWN REACTION, 02/12/17) PER RECORDS Aspirin (Verified Adverse Reaction, Mild, N/V, 02/12/17) Morphine (Verified Adverse Reaction, Mild, N/V; PATIENT TOLERATES DILAUDID IV, 02/12/17) Oxycodone (Verified Adverse Reaction, Mild, N/V; PATIENT TOLERATES DILAUDID IV, 02/12/17) Replaces ROXICET SOLN Current Inpatient Medications Current Inpatient Medications Medications (Trade) Dose Ordered Sig/Sebas Route Start Time Stop Time Status Last Admin Dose Admin Sodium Chloride 1,000 ml @ 125 mls/hr Q8H STAT IV 03/19/17 13:50 03/19/17 21:49 03/19/17 16:00 125 MLS/HR Sodium Chloride 1,000 ml @ 0 mls/hr Q0M IV 03/19/17 16:18 04/18/17 16:17 UNV Acetaminophen (Tylenol Tab) 1,300 mg BID PRN PO 03/19/17 16:30 04/18/17 16:29 UNV Atorvastatin Calcium (Lipitor Tab) 40 mg DAILY PO 03/20/17 09:00 04/19/17 08:59 UNV Clonazepam (Klonopin Tab) 0.5 mg QID PO 03/19/17 17:00 04/18/17 16:59 UNV Docusate Sodium (coLACE CAP) 100 mg BID PO 03/19/17 21:00 04/18/17 20:59 UNV Acetaminophen/ Hydrocodone Bitart ([place] 5/325 Tab) 1 tab Q4 PRN PO 03/19/17 16:30 04/02/17 16:29 UNV Acetaminophen/ Hydrocodone Bitart ([place] 5/325 Tab) 1 tab Q4 PRN PO 03/19/17 16:30 04/02/17 16:29 UNV Lisinopril (Zestril Tab) 2.5 mg QAM PO 03/20/17 09:00 04/19/17 08:59 UNV Metoprolol Tartrate (Lopressor Tab) 100 mg BID PO 03/19/17 21:00 04/18/17 20:59 UNV Multivitamins (Multivitamin Tab) 1 tab QAM PO 03/20/17 09:00 04/19/17 08:59 UNV Nortriptyline HCl (Pamelor Cap) 50 mg HS PO 03/19/17 21:00 04/18/17 20:59 UNV Oxybutynin Chloride (Ditropan-Xl Tab) 5 mg QAM PO 03/20/17 09:00 04/19/17 08:59 UNV Senna (Senokot Tab) 8.6 mg QAM PO 03/20/17 09:00 04/19/17 08:59 UNV Venlafaxine HCl (effeXOR EXTENDED REL CAP) 150 mg QAM PO 03/20/17 09:00 04/19/17 08:59 UNV Venlafaxine HCl (effeXOR TAB) 37.5 mg QAM PO 03/20/17 09:00 04/19/17 08:59 UNV Non-Formulary Medication (Fentanyl ) 75 mcg CQ72HR TP 03/19/17 16:30 04/18/17 16:29 UNV Non-Formulary Medication (Omeprazole ) 40 mg BID PO 03/19/17 21:00 04/18/17 20:59 UNV Non-Formulary Medication (Sitagliptin (Januvia)) 50 mg QAM PO 03/20/17 09:00 04/19/17 08:59 UNV Ampicillin Sodium/ Sulbactam Sodium 3000 mg/Sodium Chloride 108 ml @ 200 mls/hr Q6H IV 03/19/17 16:30 03/20/17 16:29 UNV Review of Systems Constitutional: No fever, No chills, No sweats, No weakness Respiratory: No cough, No sputum, No wheezing, No shortness of breath, No dyspnea on exertion, No dyspnea at rest Cardiovascular: No chest pain, No orthopnea, No PND, No edema Abdomen: No pain, No nausea, No vomiting, No diarrhea, No constipation Musculoskeletal: No joint pain, No muscle pain Genitourinary - Female: No dysuria, No urinary frequency, No urinary urgency, No urinary incontinence Neurologic: No memory loss, No paralysis, No weakness, No numbness/tingling Psychiatric: No depression symptoms, No anhedonism, No anxiety, No insomnia Integumentary: No rash, No itch Physical Exam Date Time Temp Pulse Resp B/P (MAP) Pulse Ox O2 Delivery O2 Flow Rate FiO2 03/19/17 15:09 66 16 122/54 95 Room Air 03/19/17 14:22 64 18 121/62 96 Room Air 03/19/17 14:01 94 Room Air 03/19/17 12:46 37.3 72 18 120/52 94 Room Air General Appearance: WD/WN, no apparent distress Head: normocephalic, atraumatic Eyes: normal inspection, PERRL, EOMI, sclerae normal Neck: supple, no adenopathy, thyroid normal, no JVD Respiratory/Chest: lungs clear, normal breath sounds, no respiratory distress, no accessory muscle use Cardiovascular: no edema, no gallop, no JVD Abdomen/GI: non tender, soft, no organomegaly Extremities/Musculoskelatal: normal inspection, no calf tenderness, normal capillary refill Neurologic/Psych: no motor/sensory deficits, alert, normal mood/affect, oriented x 3 Skin: + pertinent finding (redness right chest wall, pain on palpation) Laboratory Results Last 24 Hours Test 03/19/17 14:05 03/19/17 14:14 White Blood Count 7.90 K/uL Red Blood Count 3.71 M/uL Hemoglobin 10.9 g/dL Hematocrit 33.6 % Mean Corpuscular Volume 90.6 fL Mean Corpuscular Hemoglobin 29.4 pg Mean Corpuscular Hemoglobin Concent 32.4 g/dl Platelet Count 206 K/uL Mean Platelet Volume 9.1 fL Neutrophils (%) (Auto) 64.6 % Lymphocytes (%) (Auto) 19.5 % Monocytes (%) (Auto) 12.9 % Eosinophils (%) (Auto) 2.4 % Basophils (%) (Auto) 0.3 % Neutrophils # (Auto) 5.11 K/uL Lymphocytes # (Auto) 1.54 K/uL Monocytes # (Auto) 1.02 K/uL Eosinophils # (Auto) 0.19 K/uL Basophils # (Auto) 0.02 K/uL RDW Standard Deviation 49.4 fL RDW Coefficient of Variation 14.9 % Immature Granulocyte % (Auto) 0.3 % Immature Granulocyte # (Auto) 0.02 K/uL Prothrombin Time 10.6 SECONDS Prothromb Time International Ratio 1.0 Activated Partial Thromboplast Time 28.4 SECONDS Partial Thromboplastin Ratio 1.1 Sodium Level 141 mmol/L Potassium Level 4.4 mmol/L Chloride Level 105 mmol/L Carbon Dioxide Level 30 mmol/L Anion Gap 6.0 mmol/L Blood Urea Nitrogen 14 mg/dl Creatinine 0.90 mg/dl Est Creatinine Clear Calc Drug Dose 50.6 ml/min Estimated GFR () 72.0 Estimated GFR (Non- 62.1 BUN/Creatinine Ratio 15.4 Random Glucose 128 mg/dl Calcium Level 8.9 mg/dl Total Bilirubin 0.3 mg/dl Aspartate Amino Transf (AST/SGOT) 20 U/L Alanine Aminotransferase (ALT/SGPT) 19 U/L Alkaline Phosphatase 102 U/L Total Protein 6.9 gm/dl Albumin 2.7 gm/dl Globulin 4.2 gm/dl Albumin/Globulin Ratio 0.6 Bedside Lactic Acid Venous 1.61 mmol/L Assessment & Plan Pt is a 76 yo female s/p right mastectomy by Dr Tsang on 02/22/17 with noted redness/itchiness to surgical site x 1 day Right chest wall cellulitis - Admitted to surgical services and started on IV unasyn. IV zosyn x 1 given in ER. Will continue at this time. No leukocytosis or fevers noted No definable abscess. Blood cx pending at this time DM II - Cont januvia at this time. Dyslipidemia - Cont lipitor HTN - Cont lisinopril and lopressor, stable at this time Anxiety/depression - Cont effexor and klonopin
--- NOTE | 2017-03-19 17:09 | HISTORY & PHYSICAL EXAMINATION ---
DATE OF ADMISSION: 03/19/2017 CHIEF COMPLAINT: Lump and redness anterior chest wall. HISTORY OF PRESENT ILLNESS: This is a 76-year-old female who underwent a right mastectomy with exploration of the right axilla on 02/12/2017. She had been doing well until yesterday when she noticed a small lump on the anterior chest wall and today it was noted to be red. There is pain where the redness is. There has been no drainage from the incision or from the drain site. She has had no fever or chills. She denies nausea and vomiting. She is able to eat. Her bowels are moving. PAST MEDICAL HISTORY: Includes high blood pressure, type 2 diabetes, hypercholesterolemia, Raynaud's disease. 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 PAST SURGICAL HISTORY: Rotator cuff repair of the left shoulder 3 times, a mastectomy, cataracts bilaterally, cholecystectomy, right knee arthroscopy, back surgery, TAHBSO. MEDICATIONS: Include aspirin, atorvastatin, cholecalciferol, clonazepam, docusate sodium. Fentanyl patch, lisinopril, metoprolol, multivitamin, nortriptyline, omeprazole, oxybutynin, senna, Januvia, Effexor. ALLERGIES: LASIX, NONSTEROIDALS, ASPIRIN, MORPHINE, AND OXYCODONE. She does tolerate hydrocodone. PHYSICAL EXAMINATION: GENERAL: Reveals an elderly female who is in no acute distress. HEENT: Reveals sclerae to be anicteric. Mucous membranes are moist. NECK: Supple, with no adenopathy. BACK: Has no spinal or CVA tenderness. LUNGS: Clear. HEART: Regular. Chest wall exam reveals erythema along the length of her skin incision going superior and inferior to that as well. There is some mild fluctuance laterally. There is no drainage that I can express. ABDOMEN: Soft, nondistended, nontender. EXTREMITIES: There is 1+ edema of the left lower extremity. There is no edema of the right lower extremity. LABORATORY DATA: WBC 7.9, H&H is 10.9 and 33.6 with a platelet count of 206,000. Sodium 141, potassium 4.4, chloride 105, CO2 30, BUN 14, creatinine 0.9, glucose 128, total bilirubin 0.3, AST 20, ALT 19, alkaline phosphatase 102. Albumin 2.7. Ultrasound of the chest wall shows a complex septated fluid collection representing hematoma which is favored over seroma given the complexity superimposed infection could not be excluded. ASSESSMENT AND PLAN: This patient had aspiration of the fluid collection with return of clear yellow fluid. It was cultured. This is most likely seroma. I will place her in the hospital on IV Zosyn for the cellulitis. I will ask the hospitalist to see her regarding management of her medical issues. There is no reason to open the wound as it was not purulent return on the aspiration. I am also going to order venous Doppler of her left lower extremity to rule out DVT considering unilateral swelling.
[2017-03-19] MEDS ORDERED: IV FLUIDS COMPLETED PRN (17:15)
--- NOTE | 2017-03-19 17:31 | DIAGNOSTIC IMAGING REPORT ---
ULTRASOUND LEFT LOWER EXTREMITY VENOUS CLINICAL HISTORY: Left leg swelling. COMPARISON STUDY: Left lower extremity venous ultrasound dated 09/03/2013. TECHNIQUE: Real-time, grayscale, and color Doppler sonography of the deep veins of the left lower extremity was performed from the inguinal crease to the calf. Compression and augmentation were utilized. FINDINGS: There is no sonographic evidence of deep venous thrombosis identified in the left lower extremity. The common femoral, superficial femoral, and popliteal veins are patent and normally compressible. The greater saphenous vein and the profunda femoris vein at the junction with the common femoral vein are clear. The visualized calf veins are patent. IMPRESSION: There is no sonographic evidence of deep venous thrombosis identified in the left lower extremity. Electronically signed by: Jase Ramirez M.D. 03/19/2017 5:30 PM Dictated Date/Time: 03/19/2017 5:29 PM
[2017-03-19 18:15] VITALS: BP 113/65; PULSE 79; TEMP 37.3; O2SAT 96
[2017-03-19] MEDS ORDERED: VENL37.593 PO (18:18)
[2017-03-19 18:36] VITALS: O2SAT 96; Ht 154.9 cm; Wt 79.1 kg
[2017-03-19] MEDS: AMPICILLIN/SULBACTAM SOD INJ 3,000 MG in SODIUM CHLORIDE 0.9% 100ML 100 ML IV SCH (19:47)
[2017-03-19] MEDS: FENTANYL 75 MCG/HR TDSY TD SCH (19:48)
[2017-03-19] MEDS: SODIUM CHLORIDE 0.9% 1000ML 1,000 ML IV SCH (19:48)
[2017-03-19 21:55] VITALS: BP 120/64; PULSE 77
[2017-03-19] MEDS: METOPROLOL TARTRATE 100 MG TAB PO SCH (21:58)
[2017-03-19] MEDS: NORTRIPTYLINE HCL 25 MG CAP PO SCH (21:59)
[2017-03-19] MEDS: DOCUSATE SODIUM 100 MG CAP PO SCH (21:59)
[2017-03-19] MEDS: PANTOprazole SOD 40 MG TAB PO SCH (22:00)
[2017-03-19 22:36] LABS: MANUAL MICROSCOPIC REQUIRED? NO; REVIEW REQ? YES; URINE APPEARANCE TURBID (CLEAR); URINE BILIRUBIN NEG (NEG); URINE COLOR YELLOW; URINE NITRITE NEG (NEG); URINE PH 6.5 (4.5-7.5); URINE SPECIFIC GRAVITY 1.014 (1.000-1.030); UROBILINOGEN NEG (NEG); ZZUR CULT IF INDIC CLEAN CATCH YES
[2017-03-19 23:16] VITALS: BP 110/65; PULSE 72; TEMP 37.1; O2SAT 93
[2017-03-19] MEDS: CHECK FENTANYL PATCH PLACEMENT SCH (23:58)
[2017-03-20] VITALS (7 sets, daily range): BP systolic 110–121; BP diastolic 56–82; PULSE 64–100; TEMP 36.3–37.7; O2SAT 90–95
[2017-03-20] MEDS: AMPICILLIN/SULBACTAM SOD INJ 3,000 MG in SODIUM CHLORIDE 0.9% 100ML 100 ML IV SCH ×4 (01:49→20:32)
[2017-03-20] MEDS: CHECK FENTANYL PATCH PLACEMENT SCH ×3 (07:48→23:44)
[2017-03-20] MEDS: DOCUSATE SODIUM 100 MG CAP PO SCH ×2 (07:49→20:55)
[2017-03-20] MEDS: METOPROLOL TARTRATE 100 MG TAB PO SCH ×2 (07:49→20:55)
[2017-03-20] MEDS: OXYBUTYNIN CHLORIDE 5 MG TABCR PO SCH (07:50)
[2017-03-20] MEDS: PANTOprazole SOD 40 MG TAB PO SCH ×2 (07:50→20:55)
[2017-03-20] MEDS: SENNA 8.6 MG TAB PO SCH (07:50)
[2017-03-20] MEDS: CLONAZEPAM 0.5 MG TAB PO SCH ×4 (07:51→20:55)
[2017-03-20] MEDS: MULTIVITAMIN TAB PO SCH (07:51)
[2017-03-20] MEDS: SITAGLIPTIN 25 MG TAB PO SCH (07:51)
[2017-03-20] MEDS: ATORVASTATIN 40 MG TAB PO SCH (07:51)
[2017-03-20] MEDS: VENLAFAXINE HCL XR 150 MG CAPXR PO SCH (07:52)
[2017-03-20] MEDS: LISINOPRIL 2.5 MG TAB PO SCH (07:52)
[2017-03-20] MEDS: VENLAFAXINE HCL XR 37.5 MG CAPXR PO SCH (07:52)
--- NOTE | 2017-03-20 09:06 | Surgery Progress Note ---
Surgery Progress Note Date of Service Mar 20, 2017. Subjective Post OP Day: HD # 1, s/p Right mastectomy 02/22/17 + complaints (Itching and redness of the right breast, no significant pain), + diet, No chest pain, No nausea, No vomiting Denies of any fever or chills last evening Objective Vital Signs: Date Time Temp Pulse Resp B/P (MAP) Pulse Ox O2 Delivery O2 Flow Rate FiO2 03/20/17 07:22 37.1 80 19 116/74 (88) 94 Room Air 03/20/17 07:12 37.1 80 19 116/74 (88) 94 Room Air 03/20/17 00:00 Room Air 03/19/17 23:16 37.1 72 19 110/65 (80) 93 Room Air 03/19/17 21:55 77 120/64 (82) 03/19/17 18:36 96 Room Air 03/19/17 18:15 37.3 79 18 113/65 (81) 96 Room Air 03/19/17 18:15 Room Air 03/19/17 17:00 68 18 122/62 98 Room Air 03/19/17 15:09 66 16 122/54 95 Room Air 03/19/17 14:22 64 18 121/62 96 Room Air 03/19/17 14:01 94 Room Air 03/19/17 12:46 37.3 72 18 120/52 94 Room Air General Appearance: WD/WN, no apparent distress Head: normocephalic, atraumatic Neck: trachea midline Respiratory/Chest: no respiratory distress, no accessory muscle use, + pertinent finding (Right Chest Wall erythema surrounding right mastectomy incision, no induration or fluctuance, mild tenderness to palpation, warm to touch) Incision(s): clean, dry, intact, no drainage Laboratory Results: Results Past 24 Hours Test 03/19/17 14:05 03/19/17 14:14 03/19/17 22:16 Range/Units White Blood Count 7.90 4.8-10.8 K/uL Red Blood Count 3.71 4.2-5.4 M/uL Hemoglobin 10.9 12.0-16.0 g/dL Hematocrit 33.6 37-47 % Mean Corpuscular Volume 90.6 80-100 fL Mean Corpuscular Hemoglobin 29.4 25-34 pg Mean Corpuscular Hemoglobin Concent 32.4 32-36 g/dl Platelet Count 206 130-400 K/uL Mean Platelet Volume 9.1 7.4-10.4 fL Neutrophils (%) (Auto) 64.6 % Lymphocytes (%) (Auto) 19.5 % Monocytes (%) (Auto) 12.9 % Eosinophils (%) (Auto) 2.4 % Basophils (%) (Auto) 0.3 % Neutrophils # (Auto) 5.11 1.4-6.5 K/uL Lymphocytes # (Auto) 1.54 1.2-3.4 K/uL Monocytes # (Auto) 1.02 0.11-0.59 K/uL Eosinophils # (Auto) 0.19 0-0.5 K/uL Basophils # (Auto) 0.02 0-0.2 K/uL RDW Standard Deviation 49.4 36.4-46.3 fL RDW Coefficient of Variation 14.9 11.5-14.5 % Immature Granulocyte % (Auto) 0.3 % Immature Granulocyte # (Auto) 0.02 0.00-0.02 K/uL Prothrombin Time 10.6 9.0-12.0 SECONDS Prothromb Time International Ratio 1.0 0.9-1.1 Activated Partial Thromboplast Time 28.4 21.0-31.0 SECONDS Partial Thromboplastin Ratio 1.1 Sodium Level 141 136-145 mmol/L Potassium Level 4.4 3.5-5.1 mmol/L Chloride Level 105 98-107 mmol/L Carbon Dioxide Level 30 21-32 mmol/L Anion Gap 6.0 3-11 mmol/L Blood Urea Nitrogen 14 7-18 mg/dl Creatinine 0.90 0.60-1.20 mg/dl Est Creatinine Clear Calc Drug Dose 50.6 ml/min Estimated GFR () 72.0 Estimated GFR (Non- 62.1 BUN/Creatinine Ratio 15.4 10-20 Random Glucose 128 70-99 mg/dl Calcium Level 8.9 8.5-10.1 mg/dl Total Bilirubin 0.3 0.2-1 mg/dl Aspartate Amino Transf (AST/SGOT) 20 15-37 U/L Alanine Aminotransferase (ALT/SGPT) 19 12-78 U/L Alkaline Phosphatase 102 45-117 U/L Total Protein 6.9 6.4-8.2 gm/dl Albumin 2.7 3.4-5.0 gm/dl Globulin 4.2 2.5-4.0 gm/dl Albumin/Globulin Ratio 0.6 0.9-2 Bedside Lactic Acid Venous 1.61 0.90-1.70 mmol/L Urine Color YELLOW Urine Appearance TURBID CLEAR Urine pH 6.5 4.5-7.5 Urine Specific [place] 1.014 1.000-1.030 Urine Protein NEG NEG Urine Glucose (UA) NEG NEG Urine Ketones NEG NEG Urine Occult Blood 1+ NEG Urine Nitrite NEG NEG Urine Bilirubin NEG NEG Urine Urobilinogen NEG NEG Urine Leukocyte Esterase LARGE NEG Urine WBC (Auto) >30 0-5 /hpf Urine RBC (Auto) 5-10 0-4 /hpf Urine Hyaline Casts (Auto) 1-5 0-5 /lpf Urine Epithelial Cells (Auto) 10-20 0-5 /lpf Urine Bacteria (Auto) NEG NEG Urine Yeast (Auto) BUDDING NONE PRSENT Microbiology Results 03/19/17 Blood Culture, Received Pending 03/19/17 Blood Culture, Received Pending 03/19/17 Urine Culture, Received Pending Assessment & Plan Cellulitis of the right Chest S/P right Mastectomy 02/22/17 - vitals stable - afebrile - mild pain, right chest Plan: Continue IV antibiotics No indication for drainage Continue regular, diabetic diet Continue home medications continue medical management Dr. Tsang has seen and examined patient, agrees with above
--- NOTE | 2017-03-20 10:01 | Hospitalist Progress Note ---
Hospitalist Progress Note Date of Service Mar 20, 2017. (Kathryn Florez ., LAILA) Subjective Pt evaluation today including: conversation w/ patient, physical exam, lab review, review of studies, review of inpatient medication list Voiding: no voiding problems Patient states she is feeling well. Sitting in bedside chair, eating breakfast- tolerating well. Denies significant pain. R breast region w/ erythema and itchiness. +chills- ongoing since mastectomy in January. Patient denies any fever, sweats, lightheadedness, dizziness, vision changes, CP , palpitations, edema, SOB, wheezing, cough, abdominal pain, nausea, vomiting, diarrhea, urinary symptoms, melena, numbness/tingling, weakness, muscle/joint pain, anxiety/depression, active bleeding. (Kathryn Florez ., KESHAVC) Medications Current Inpatient Medications Medications (Trade) Dose Ordered Sig/Sebas Route Start Time Stop Time Status Last Admin Dose Admin Sodium Chloride 1,000 ml @ 15 mls/hr Q24H IV 03/19/17 16:18 04/18/17 16:17 03/19/17 19:48 15 MLS/HR Acetaminophen (Tylenol Tab) 650 mg Q6 PRN PO 03/19/17 16:30 04/18/17 16:29 Atorvastatin Calcium (Lipitor Tab) 40 mg DAILY PO 03/20/17 09:00 04/19/17 08:59 03/20/17 07:51 40 MG Clonazepam (Klonopin Tab) 0.5 mg QID PO 03/19/17 17:00 04/18/17 16:59 03/20/17 07:51 0.5 MG Docusate Sodium (coLACE CAP) 100 mg BID PO 03/19/17 21:00 04/18/17 20:59 03/20/17 07:49 100 MG Acetaminophen/ Hydrocodone Bitart ([place] 5/325 Tab) 1 tab Q4 PRN PO 03/19/17 16:30 04/02/17 16:29 Lisinopril (Zestril Tab) 2.5 mg QAM PO 03/20/17 09:00 04/19/17 08:59 03/20/17 07:52 2.5 MG Metoprolol Tartrate (Lopressor Tab) 100 mg BID PO 03/19/17 21:00 04/18/17 20:59 03/20/17 07:49 100 MG Multivitamins (Multivitamin Tab) 1 tab QAM PO 03/20/17 09:00 04/19/17 08:59 03/20/17 07:51 1 TAB Nortriptyline HCl (Pamelor Cap) 50 mg HS PO 03/19/17 21:00 04/18/17 20:59 03/19/17 21:59 50 MG Oxybutynin Chloride (Ditropan-Xl Tab) 5 mg QAM PO 03/20/17 09:00 04/19/17 08:59 03/20/17 07:50 5 MG Senna (Senokot Tab) 8.6 mg QAM PO 03/20/17 09:00 04/19/17 08:59 03/20/17 07:50 8.6 MG Venlafaxine HCl (effeXOR EXTENDED REL CAP) 150 mg QAM PO 03/20/17 09:00 04/19/17 08:59 03/20/17 07:52 150 MG Venlafaxine HCl (effeXOR EXTENDED REL CAP) 37.5 mg QAM PO 03/20/17 09:00 04/19/17 08:59 03/20/17 07:52 37.5 MG Fentanyl (Duragesic Patch) 75 mcg Q3D@1900 TD 03/19/17 19:00 04/02/17 18:59 03/19/17 19:48 75 MCG Pantoprazole Sodium (Protonix Tab) 40 mg BID PO 03/19/17 21:00 04/18/17 20:59 03/20/17 07:50 40 MG Sitagliptin Phosphate (Januvia Tab) 50 mg QAM PO 03/20/17 09:00 04/19/17 08:59 03/20/17 07:51 50 MG Ampicillin Sodium/ Sulbactam Sodium 3000 mg/Sodium Chloride 108 ml @ 200 mls/hr Q6H IV 03/19/17 20:00 03/29/17 19:59 03/20/17 07:48 200 MLS/HR Miscellaneous (Iv Fluids Completed) 1 ea PRN PRN N/A 03/19/17 17:15 03/19/18 17:14 Miscellaneous (Fentanyl Patch Remove & Waste) 1 ea Q3D@1900 N/A 03/22/17 19:00 04/21/17 18:59 Miscellaneous Information (Check Fentanyl Patch Placement) 1 ea QS N/A 03/20/17 00:00 04/19/17 00:00 03/20/17 07:48 1 EA (Kathryn Florez, KESHAVC) Objective Vital Signs Date Time Temp Pulse Resp B/P (MAP) Pulse Ox O2 Delivery O2 Flow Rate FiO2 03/20/17 07:22 37.1 80 19 116/74 (88) 94 Room Air 03/20/17 07:12 37.1 80 19 116/74 (88) 94 Room Air 03/20/17 00:00 Room Air 03/19/17 23:16 37.1 72 19 110/65 (80) 93 Room Air 03/19/17 21:55 77 120/64 (82) 03/19/17 18:36 96 Room Air 03/19/17 18:15 37.3 79 18 113/65 (81) 96 Room Air 03/19/17 18:15 Room Air 03/19/17 17:00 68 18 122/62 98 Room Air 03/19/17 15:09 66 16 122/54 95 Room Air 03/19/17 14:22 64 18 121/62 96 Room Air 03/19/17 14:01 94 Room Air 03/19/17 12:46 37.3 72 18 120/52 94 Room Air (Kathryn Florez, LUZ-C) Physical Exam General Appearance: no apparent distress, + obese Eyes: normal inspection, PERRL ENT: hearing grossly normal Neck: supple Respiratory/Chest: lungs clear, no respiratory distress, no accessory muscle use Cardiovascular: regular rate, rhythm Abdomen: normal bowel sounds, non tender, soft Extremities: no pedal edema, no calf tenderness Neurologic/Psychiatric: alert, normal mood/affect, oriented x 3 Skin: warm/dry, no rash, + pertinent finding (right chest wall w/ erythema and warmth to touch; incision site intact w/ no obvious drainage ) (Kathryn Florez, LUZ-C) Laboratory Results Last 24 Hours Test 03/19/17 14:05 03/19/17 14:14 03/19/17 22:16 White Blood Count 7.90 K/uL Red Blood Count 3.71 M/uL Hemoglobin 10.9 g/dL Hematocrit 33.6 % Mean Corpuscular Volume 90.6 fL Mean Corpuscular Hemoglobin 29.4 pg Mean Corpuscular Hemoglobin Concent 32.4 g/dl Platelet Count 206 K/uL Mean Platelet Volume 9.1 fL Neutrophils (%) (Auto) 64.6 % Lymphocytes (%) (Auto) 19.5 % Monocytes (%) (Auto) 12.9 % Eosinophils (%) (Auto) 2.4 % Basophils (%) (Auto) 0.3 % Neutrophils # (Auto) 5.11 K/uL Lymphocytes # (Auto) 1.54 K/uL Monocytes # (Auto) 1.02 K/uL Eosinophils # (Auto) 0.19 K/uL Basophils # (Auto) 0.02 K/uL RDW Standard Deviation 49.4 fL RDW Coefficient of Variation 14.9 % Immature Granulocyte % (Auto) 0.3 % Immature Granulocyte # (Auto) 0.02 K/uL Prothrombin Time 10.6 SECONDS Prothromb Time International Ratio 1.0 Activated Partial Thromboplast Time 28.4 SECONDS Partial Thromboplastin Ratio 1.1 Sodium Level 141 mmol/L Potassium Level 4.4 mmol/L Chloride Level 105 mmol/L Carbon Dioxide Level 30 mmol/L Anion Gap 6.0 mmol/L Blood Urea Nitrogen 14 mg/dl Creatinine 0.90 mg/dl Est Creatinine Clear Calc Drug Dose 50.6 ml/min Estimated GFR () 72.0 Estimated GFR (Non- 62.1 BUN/Creatinine Ratio 15.4 Random Glucose 128 mg/dl Calcium Level 8.9 mg/dl Total Bilirubin 0.3 mg/dl Aspartate Amino Transf (AST/SGOT) 20 U/L Alanine Aminotransferase (ALT/SGPT) 19 U/L Alkaline Phosphatase 102 U/L Total Protein 6.9 gm/dl Albumin 2.7 gm/dl Globulin 4.2 gm/dl Albumin/Globulin Ratio 0.6 Bedside Lactic Acid Venous 1.61 mmol/L Urine Color YELLOW Urine Appearance TURBID Urine pH 6.5 Urine Specific [place] 1.014 Urine Protein NEG Urine Glucose (UA) NEG Urine Ketones NEG Urine Occult Blood 1+ Urine Nitrite NEG Urine Bilirubin NEG Urine Urobilinogen NEG Urine Leukocyte Esterase LARGE Urine WBC (Auto) >30 /hpf Urine RBC (Auto) 5-10 /hpf Urine Hyaline Casts (Auto) 1-5 /lpf Urine Epithelial Cells (Auto) 10-20 /lpf Urine Bacteria (Auto) NEG Urine Yeast (Auto) BUDDING (Kathryn Florez ., PA-C) Assessment and Plan Patient is a 76 y/o female s/p right mastectomy by Dr Tsang on 02/22/17 with noted redness/itchiness to surgical site x 1 day. Right chest wall cellulitis s/p right mastectomy by Dr Tsang on 02/22/17: - Admitted to surgical services and started on IV Unasyn- IV Zosyn x 1 given in ER - BCx and UCx pending - Pain management w/ [place] q4 hrs PRN - Aspiration of fluid collection by Dr. Vasquez on 03/18- cultured LLE edema: Venous Doppler negative for evidence of DVT T2DM- HgbA1c 7.2% in 01/2017 : - Continue Januvia 50 mg daily - BSG ACHS and sliding insulin scale Dyslipidemia: Continue Lipitor 40 mg daily HTN: Continue Lisinopril 2.5 mg daily and Lopressor 100 mg BID Anxiety/depression: Continue Effexor 187.5 mg daily, Klonopin 0.5 mg QID, Nortriptyline 50 mg HS GI prophylaxis: Protonix 40 mg BID DVT prophylaxis: TEDs/SCDs, defer chemical anticoagulation to primary team- ? need for I&D Code Status: LEVEL I, FULL Dispo: Resident of [facility]- discharge as per primary team (Kathryn Florez, PA-C) i personally examined pt and verified all leigh points w Myrtle Florez PAC chest wall itchy but not too painful vitals noted, diffuse anterior chest wall erythema no crepitis chest wall cellulitis -abx, supportive care, follow otherwise as above (Jamal Dyer D.O.)
[2017-03-20] MEDS: INSULIN ASPART 100 UNITS/ML 3 ML PEN SC SCH ×3 (13:15→21:00)
[2017-03-20] MEDS ORDERED: GLUCOSE 10 TABS/TUBE PO PRN (13:30)
[2017-03-20] MEDS ORDERED: GLUCOSE 40% GEL 15 GM TUBE PO PRN (13:30)
[2017-03-20] MEDS ORDERED: GLUCAGON FOR INJ 1 MG VIAL SQ PRN (13:30)
[2017-03-20] MEDS ORDERED: DEXTROSE 50% 50 ML SYR IV PRN (13:30)
[2017-03-20] MEDS: SODIUM CHLORIDE 0.9% 1000ML 1,000 ML IV SCH (16:33)
[2017-03-20] MEDS: HYDROCODONE/ACETAMOPHEN 5/325MG TAB PO PRN (16:39)
[2017-03-20] MEDS: NORTRIPTYLINE HCL 25 MG CAP PO SCH (20:55)
[2017-03-21] VITALS (8 sets, daily range): BP systolic 101–139; BP diastolic 56–78; PULSE 69–75; TEMP 36.6–38.6; O2SAT 90–98
[2017-03-21] MEDS: AMPICILLIN/SULBACTAM SOD INJ 3,000 MG in SODIUM CHLORIDE 0.9% 100ML 100 ML IV SCH ×4 (02:03→20:26)
[2017-03-21] MEDS: HYDROCODONE/ACETAMOPHEN 5/325MG TAB PO PRN (02:11)
[2017-03-21 07:09] LABS: HEMATOCRIT 31.7 % (37-47); MEAN CELL VOLUME 89.8 fL (80-100); MEAN CORPUSCULAR HEMOGLOBIN 28.9 pg (25-34); MEAN CORPUSCULAR HGB CONC 32.2 g/dl (32-36); PLATELET COUNT 193 K/uL (130-400); RED BLOOD COUNT 3.53 M/uL (4.2-5.4); WHITE BLOOD COUNT 12.06 K/uL (4.8-10.8)
[2017-03-21] MEDS: INSULIN ASPART 100 UNITS/ML 3 ML PEN SC SCH ×4 (08:51→21:00)
[2017-03-21] MEDS: CHECK FENTANYL PATCH PLACEMENT SCH ×2 (08:51→16:02)
[2017-03-21] MEDS: VENLAFAXINE HCL XR 150 MG CAPXR PO SCH (08:52)
[2017-03-21] MEDS: CLONAZEPAM 0.5 MG TAB PO SCH ×4 (08:52→20:32)
[2017-03-21] MEDS: SITAGLIPTIN 25 MG TAB PO SCH (08:52)
[2017-03-21] MEDS: VENLAFAXINE HCL XR 37.5 MG CAPXR PO SCH (08:52)
[2017-03-21] MEDS: LISINOPRIL 2.5 MG TAB PO SCH (08:52)
[2017-03-21] MEDS: DOCUSATE SODIUM 100 MG CAP PO SCH ×2 (08:53→20:32)
[2017-03-21] MEDS: ATORVASTATIN 40 MG TAB PO SCH (08:53)
[2017-03-21] MEDS: METOPROLOL TARTRATE 100 MG TAB PO SCH ×2 (08:53→20:33)
[2017-03-21] MEDS: MULTIVITAMIN TAB PO SCH (08:53)
[2017-03-21] MEDS: SENNA 8.6 MG TAB PO SCH (08:53)
[2017-03-21] MEDS: OXYBUTYNIN CHLORIDE 5 MG TABCR PO SCH (08:53)
[2017-03-21] MEDS: PANTOprazole SOD 40 MG TAB PO SCH ×2 (08:53→20:32)
[2017-03-21] MEDS ORDERED: POLYETHYLENE (MIRALAX) 17 GM PACK PO ONE (09:30)
[2017-03-21] MEDS ORDERED: POLYETHYLENE (MIRALAX) 17 GM PACK PO PRN (09:30)
[2017-03-21] MEDS ORDERED: VANCOMYCIN CONSULT ACTIVE PRN (09:45)
[2017-03-21] MEDS ORDERED: VANCOMYCIN INJ 2,000 MG in SODIUM CHLORIDE 0.9% 500ML 500 ML IV SCH (10:00)
--- NOTE | 2017-03-21 10:22 | Surgery Progress Note ---
Surgery Progress Note Date of Service Mar 21, 2017. Subjective Patient examined at bedside this morning. Febrile to Tmax 38.6 yesterday evening - otherwise afebrile overnight. Tachycardic up to max 100 while febrile , otherwise vitals stable and normal on room air. Patient sitting up comfortably in chair, eating breakfast on arrival. Denies pain. Per patient, the erythema of the right chest is improved today compared to yesterday; it is mildly indurated and mildly tender to palpation (no pain when not palpating). Tolerating diet without N/V. Ambulating and voiding without difficulty. States she is voiding approximately every 30min, which is normal for her - denies dysuria, but states she does have frequent UTIs. Objective Vital Signs: Date Time Temp Pulse Resp B/P (MAP) Pulse Ox O2 Delivery O2 Flow Rate FiO2 03/21/17 08:56 108/78 (88) 03/21/17 07:37 36.6 71 18 102/56 (71) 90 Room Air 03/21/17 05:09 37.1 03/21/17 04:00 38.1 03/21/17 02:15 38.6 03/20/17 23:38 37.7 100 17 117/56 (76) 95 Room Air 03/20/17 23:36 Room Air 03/20/17 20:50 97 121/68 (85) 03/20/17 16:30 Room Air 03/20/17 15:00 37.0 70 16 110/65 (80) 93 Room Air 03/20/17 11:02 36.3 64 17 118/82 (94) 90 Room Air 03/20/17 10:24 94 Room Air General Appearance: WD/WN, no apparent distress Head: normocephalic Neck: supple Respiratory/Chest: lungs clear, normal breath sounds, no respiratory distress Cardiovascular: regular rate, rhythm Abdomen: normal bowel sounds, non tender, non distended, soft Incision(s): clean, dry, intact, erythema (extending approximately 4cm in all directions from inicision) Laboratory Results: Results Past 24 Hours Test 03/20/17 12:01 03/20/17 16:56 03/20/17 20:54 03/21/17 06:45 Range/Units Bedside Glucose 179 130 182 70-90 mg/dl White Blood Count 12.06 4.8-10.8 K/uL Red Blood Count 3.53 4.2-5.4 M/uL Hemoglobin 10.2 12.0-16.0 g/dL Hematocrit 31.7 37-47 % Mean Corpuscular Volume 89.8 80-100 fL Mean Corpuscular Hemoglobin 28.9 25-34 pg Mean Corpuscular Hemoglobin Concent 32.2 32-36 g/dl RDW Standard Deviation 48.0 36.4-46.3 fL RDW Coefficient of Variation 14.7 11.5-14.5 % Platelet Count 193 130-400 K/uL Mean Platelet Volume 9.0 7.4-10.4 fL Test 03/21/17 08:22 Range/Units Bedside Glucose 134 70-90 mg/dl Assessment & Plan Ciara Kirkland is a 76 year old woman admitted with cellulitis of the right chest s/p R mastectomy on 02/22/17. Febrile overnight, otherwise vitals stable. Leukocytosis today to 12, continues on Unasyn. Per patient, erythema of right chest wall is improved today. Appears to have a UTI on UA (large esterase and +yeast), culture pending. Plan: Continue IV antibiotics Follow up urine culture No indication for drainage Continue regular, diabetic diet Continue home medications Continue medical management Bianka Thomas MD 03/21/17
--- NOTE | 2017-03-21 11:52 | Pharmacy Progress Note ---
Pharmacy Abx Initial Consult Date of Service Mar 21, 2017. Pharmacy Dosing Scope Date of Consult: 03/21/17 Consultation requested by: Kathryn Florez Pharmacy is consulted to initiate Vancomycin IV dosing therapy, order appropriate labs and adjust drug dose/frequency. Subjective The patient is a 76 year old female admitted on Mar 19, 2017 at 16:30 with chest wall cellulitis. She s/p (R) mastectomy back in January. She presents with soreness/redness and a lump and was placed on IV Unasyn by Dr. Tsang. Today medicine consulted pharmacy to start patient on Vancomycin IV. Objective Height (Feet): 5 Height (Inches): 1.00 Weight (Kilograms): 79.100 Vital Signs (Past 12Hrs) Vital Signs Past 12 Hours Date Time Temp Pulse Resp B/P (MAP) Pulse Ox O2 Delivery O2 Flow Rate FiO2 03/21/17 08:56 108/78 (88) 03/21/17 07:50 Room Air 03/21/17 07:37 36.6 71 18 102/56 (71) 90 Room Air 03/21/17 05:09 37.1 03/21/17 04:00 38.1 03/21/17 02:15 38.6 Lab Results (24Hrs) Laboratory Tests (24 Hours) Test 03/21/17 06:45 White Blood Count 12.06 K/uL (4.8-10.8) H Micro Results Date/Time Source Procedure Growth Status 03/19/17 14:15 Blood Blood Culture - Preliminary NO GROWTH TO DATE. Resulted 03/19/17 14:05 Blood Blood Culture - Preliminary NO GROWTH TO DATE. Resulted 03/19/17 00:00 Nasal MRSA DNA Surveillance Screen - Final Specimen Negative for MRSA by DNA Probe Complete 03/19/17 22:16 Urine , Clean Catch Urine Culture Pending Received Risk Factors for Resistance * Resident in a detention or extended-care facility * Hospitalization for 48 hours or more within the past 90 days * Antimicrobial use within the last 90 days Unasyn 3gm IV Q6h currently; one dose of Zosyn via ED upon admission. Assessment & Plan Assessment 76 year old female with chest wall cellulitis that Kathryn Florez from medicine consults pharmacy to initiate Vancomycin IV Plan Vancomycin for treatment of chest wall cellulitis. Vancomycin IV * Loading dose: 2000 mg (~25 mg/kg) * Maintenance dose: 1250mg IV (~16 mg/kg) every 16 hours * Goal trough level for Cellulitis : 15-20 mcg/mL * Trough level ordered prior to 1200 dose on 03/23/17 Pharmacy will continue to follow and will adjust dose/frequency as necessary. Thank you.
--- NOTE | 2017-03-21 12:40 | Hospitalist Progress Note ---
Hospitalist Progress Note Date of Service Mar 21, 2017. (Kathryn Florez ., PA-C) Subjective Pt evaluation today including: conversation w/ patient, physical exam, lab review, review of inpatient medication list Voiding: no voiding problems Patient feeling well this AM. Sitting in bedside chair eating breakfast. +fever/chills overnight. +Continued discomfort/itchiness to R chest wall. +constipation Does not recall last BM. None documented since admission- add MiraLAX to bowel regimen. No abdominal discomfort. +flatus. Patient denies any fever, chills, sweats, lightheadedness, dizziness, vision changes, CP, palpitations, edema, SOB, wheezing, cough, abdominal pain, nausea, vomiting, diarrhea, urinary symptoms, melena, numbness/tingling, weakness, muscle/joint pain, anxiety/depression, active bleeding. (Kathryn Florez ., PA-C) Medications Current Inpatient Medications Medications (Trade) Dose Ordered Sig/[place] Route Start Time Stop Time Status Last Admin Dose Admin Sodium Chloride 1,000 ml @ 15 mls/hr Q24H IV 03/19/17 16:18 04/18/17 16:17 03/20/17 16:33 15 MLS/HR Acetaminophen (Tylenol Tab) 650 mg Q6 PRN PO 03/19/17 16:30 04/18/17 16:29 03/21/17 04:03 650 MG Atorvastatin Calcium (Lipitor Tab) 40 mg DAILY PO 03/20/17 09:00 04/19/17 08:59 03/21/17 08:53 40 MG Clonazepam (Klonopin Tab) 0.5 mg QID PO 03/19/17 17:00 04/18/17 16:59 03/21/17 08:52 0.5 MG Docusate Sodium (coLACE CAP) 100 mg BID PO 03/19/17 21:00 04/18/17 20:59 03/21/17 08:53 100 MG Acetaminophen/ Hydrocodone Bitart ([place] 5/325 Tab) 1 tab Q4 PRN PO 03/19/17 16:30 04/02/17 16:29 03/21/17 02:11 1 TAB Lisinopril (Zestril Tab) 2.5 mg QAM PO 03/20/17 09:00 04/19/17 08:59 03/21/17 08:52 2.5 MG Metoprolol Tartrate (Lopressor Tab) 100 mg BID PO 03/19/17 21:00 04/18/17 20:59 03/21/17 08:53 100 MG Multivitamins (Multivitamin Tab) 1 tab QAM PO 03/20/17 09:00 04/19/17 08:59 03/21/17 08:53 1 TAB Nortriptyline HCl (Pamelor Cap) 50 mg HS PO 03/19/17 21:00 04/18/17 20:59 03/20/17 20:55 50 MG Oxybutynin Chloride (Ditropan-Xl Tab) 5 mg QAM PO 03/20/17 09:00 04/19/17 08:59 03/21/17 08:53 5 MG Senna (Senokot Tab) 8.6 mg QAM PO 03/20/17 09:00 04/19/17 08:59 03/21/17 08:53 8.6 MG Venlafaxine HCl (effeXOR EXTENDED REL CAP) 150 mg QAM PO 03/20/17 09:00 04/19/17 08:59 03/21/17 08:52 150 MG Venlafaxine HCl (effeXOR EXTENDED REL CAP) 37.5 mg QAM PO 03/20/17 09:00 04/19/17 08:59 03/21/17 08:52 37.5 MG Fentanyl (Duragesic Patch) 75 mcg Q3D@1900 TD 03/19/17 19:00 04/02/17 18:59 03/19/17 19:48 75 MCG Pantoprazole Sodium (Protonix Tab) 40 mg BID PO 03/19/17 21:00 04/18/17 20:59 03/21/17 08:53 40 MG Sitagliptin Phosphate (Januvia Tab) 50 mg QAM PO 03/20/17 09:00 04/19/17 08:59 03/21/17 08:52 50 MG Ampicillin Sodium/ Sulbactam Sodium 3000 mg/Sodium Chloride 108 ml @ 200 mls/hr Q6H IV 03/19/17 20:00 03/29/17 19:59 03/21/17 08:51 200 MLS/HR Miscellaneous (Iv Fluids Completed) 1 ea PRN PRN N/A 03/19/17 17:15 03/19/18 17:14 Miscellaneous (Fentanyl Patch Remove & Waste) 1 ea Q3D@1900 N/A 03/22/17 19:00 04/21/17 18:59 Miscellaneous Information (Check Fentanyl Patch Placement) 1 ea QS N/A 03/20/17 00:00 04/19/17 00:00 03/21/17 08:51 1 EA Insulin Aspart (novoLOG ASPART) SLIDING SCALE G... ACHS SC 03/20/17 13:15 04/19/17 13:14 Glucose (Glucose 40% Gel) 15-30 GRAMS 15 GRAMS... UD PRN PO 03/20/17 13:30 04/19/17 13:29 Glucose (Glucose Chew Tab) 4-8 Tablets 4 Tabl... UD PRN PO 03/20/17 13:30 04/19/17 13:29 Dextrose (Dextrose 50% 50ML Syringe) 25-50ML OF 50% DW IV FOR... UD PRN IV 03/20/17 13:30 04/19/17 13:29 Glucagon (Glucagon Inj) 1 mg UD PRN SQ 03/20/17 13:30 04/19/17 13:29 (Kathryn Florez PA-C) Objective Vital Signs Date Time Temp Pulse Resp B/P (MAP) Pulse Ox O2 Delivery O2 Flow Rate FiO2 03/21/17 08:56 108/78 (88) 03/21/17 07:37 36.6 71 18 102/56 (71) 90 Room Air 03/21/17 05:09 37.1 03/21/17 04:00 38.1 03/21/17 02:15 38.6 03/20/17 23:38 37.7 100 17 117/56 (76) 95 Room Air 03/20/17 23:36 Room Air 03/20/17 20:50 97 121/68 (85) 03/20/17 16:30 Room Air 03/20/17 15:00 37.0 70 16 110/65 (80) 93 Room Air 03/20/17 11:02 36.3 64 17 118/82 (94) 90 Room Air 03/20/17 10:24 94 Room Air (Murarik, Kathryn ., PA-C) Physical Exam General Appearance: no apparent distress, + obese Eyes: normal inspection, PERRL ENT: hearing grossly normal Neck: supple Respiratory/Chest: lungs clear, no respiratory distress, no accessory muscle use Cardiovascular: regular rate, rhythm Abdomen: normal bowel sounds, non tender, soft Extremities: no pedal edema, no calf tenderness Neurologic/Psychiatric: alert, normal mood/affect, oriented x 3 Skin: warm/dry, no rash, + pertinent finding (R chest wall w/ erythema and warmth to touch; incision site clean, dry, and intact ) (Kathryn Florez, PA-C) Laboratory Results Last 24 Hours Test 03/20/17 12:01 03/20/17 16:56 03/20/17 20:54 03/21/17 06:45 Bedside Glucose 179 mg/dl 130 mg/dl 182 mg/dl White Blood Count 12.06 K/uL Red Blood Count 3.53 M/uL Hemoglobin 10.2 g/dL Hematocrit 31.7 % Mean Corpuscular Volume 89.8 fL Mean Corpuscular Hemoglobin 28.9 pg Mean Corpuscular Hemoglobin Concent 32.2 g/dl RDW Standard Deviation 48.0 fL RDW Coefficient of Variation 14.7 % Platelet Count 193 K/uL Mean Platelet Volume 9.0 fL Test 03/21/17 08:22 Bedside Glucose 134 mg/dl (Kathryn Florez, PA-C) Assessment and Plan Patient is a 76 y/o female s/p right mastectomy by Dr Tsang on 02/22/17 with noted redness/itchiness to surgical site x 1 day. Right chest wall cellulitis s/p right mastectomy by Dr Tsang on 02/22/17: - Admitted to surgical services and started on IV Unasyn- IV Zosyn x 1 given in ER -- Added IV Vancomycin on 03/21 due to fevers and leukocytosis - BCx- NGTD - UCx pending - Pain management w/ [place] q4 hrs PRN - Aspiration of fluid collection by Dr. Vasquez on 03/18- cultured - Follow CBC LLE edema: Venous Doppler negative for evidence of DVT Constipation: - Continue Colace 100 mg BID and Senokot 8.6 mg daily - MiraLAX x1 now, then PRN T2DM- HgbA1c 7.2% in 01/2017 : - Continue Januvia 50 mg daily - BSG ACHS and sliding insulin scale Dyslipidemia: Continue Lipitor 40 mg daily HTN: Continue Lisinopril 2.5 mg daily and Lopressor 100 mg BID Anxiety/depression: Continue Effexor 187.5 mg daily, Klonopin 0.5 mg QID, Nortriptyline 50 mg HS h/o DVT- noted GI prophylaxis: Protonix 40 mg BID DVT prophylaxis: TEDs/SCDs; per surgery, no plans for I&D- will start Heparin SQ BID given h/o DVT Code Status: LEVEL I, FULL Dispo: Resident of [facility]- discharge as per primary team- social worker assistant and PT/OT consulted (Kathryn Florez, PA-C) i personally examined pt and verified all leigh points w Myrtle Florez PAC feeling about the same white count and temp noted vitals noted otherwise. fatigued but no distress chest wall cellulitis - not improving. about 48hrs into treatment w unasyn. have to consider MRSA --> add vanco. certainly can be polymicrobial so keep unasyn. otherwise as above (Jamal Dyer DCarroll.)
[2017-03-21] MEDS: SODIUM CHLORIDE 0.9% 1000ML 1,000 ML IV SCH (16:03)
[2017-03-21] MEDS: NORTRIPTYLINE HCL 25 MG CAP PO SCH (20:32)
[2017-03-21] MEDS: HEPARIN SOD 5000 UNIT/0.5 ML CARP SQ SCH (20:37)
[2017-03-22] MEDS: CHECK FENTANYL PATCH PLACEMENT SCH ×4 (00:21→23:50)
[2017-03-22] MEDS: AMPICILLIN/SULBACTAM SOD INJ 3,000 MG in SODIUM CHLORIDE 0.9% 100ML 100 ML IV SCH ×4 (01:55→21:23)
[2017-03-22] MEDS: VANCOMYCIN INJ 1,250 MG in SODIUM CHLORIDE 0.9% 250ML 250 ML IV SCH ×2 (04:00→21:23)
[2017-03-22 07:31] VITALS: BP 120/78; PULSE 84; TEMP 37; O2SAT 95
--- NOTE | 2017-03-22 07:31 | Surgery Progress Note ---
Surgery Progress Note Date of Service Mar 22, 2017. Subjective Still with pain in chest wall area Objective Vital Signs: Date Time Temp Pulse Resp B/P (MAP) Pulse Ox O2 Delivery O2 Flow Rate FiO2 03/21/17 22:57 37.2 73 16 139/60 (86) 93 Room Air 03/21/17 20:30 75 101/60 (74) 03/21/17 19:30 Room Air 03/21/17 16:00 36.8 69 16 116/76 (89) 98 Room Air 03/21/17 08:56 108/78 (88) 03/21/17 07:50 Room Air 03/21/17 07:37 36.6 71 18 102/56 (71) 90 Room Air Respiratory/Chest: + pertinent finding (Erythema persisits, slightly more medially, tender in area of erythema) Laboratory Results: Results Past 24 Hours Test 03/21/17 08:22 03/21/17 12:15 03/22/17 07:12 Range/Units Bedside Glucose 134 138 70-90 mg/dl Assessment & Plan S/P right mastectomy now with chest wall cellulitis Fluid collection aspirated again today for 45 cc of of nonpurulent clear yellow fluid, cultured Continue Unasyn and vanc WBC pending
[2017-03-22 07:38] LABS: HEMATOCRIT 33.2 % (37-47); MEAN CELL VOLUME 91.7 fL (80-100); MEAN CORPUSCULAR HEMOGLOBIN 28.7 pg (25-34); MEAN CORPUSCULAR HGB CONC 31.3 g/dl (32-36); MEAN PLATELET VOLUME 9.8 fL (7.4-10.4); PLATELET COUNT 203 K/uL (130-400); RED BLOOD COUNT 3.62 M/uL (4.2-5.4); WHITE BLOOD COUNT 6.83 K/uL (4.8-10.8)
[2017-03-22] MEDS: INSULIN ASPART 100 UNITS/ML 3 ML PEN SC SCH ×4 (08:00→21:00)
[2017-03-22] MEDS: OXYBUTYNIN CHLORIDE 5 MG TABCR PO SCH (08:43)
[2017-03-22] MEDS: SENNA 8.6 MG TAB PO SCH (08:44)
[2017-03-22] MEDS: LISINOPRIL 2.5 MG TAB PO SCH (08:44)
[2017-03-22] MEDS: METOPROLOL TARTRATE 100 MG TAB PO SCH ×2 (08:44→21:23)
[2017-03-22] MEDS: PANTOprazole SOD 40 MG TAB PO SCH ×2 (08:44→21:24)
[2017-03-22] MEDS: SITAGLIPTIN 25 MG TAB PO SCH (08:44)
[2017-03-22] MEDS: VENLAFAXINE HCL XR 150 MG CAPXR PO SCH (08:44)
[2017-03-22] MEDS: DOCUSATE SODIUM 100 MG CAP PO SCH ×2 (08:45→21:23)
[2017-03-22] MEDS: CLONAZEPAM 0.5 MG TAB PO SCH ×4 (08:45→21:22)
[2017-03-22] MEDS: VENLAFAXINE HCL XR 37.5 MG CAPXR PO SCH (08:45)
[2017-03-22] MEDS: ATORVASTATIN 40 MG TAB PO SCH (08:45)
[2017-03-22] MEDS: MULTIVITAMIN TAB PO SCH (08:47)
[2017-03-22] MEDS: HEPARIN SOD 5000 UNIT/0.5 ML CARP SQ SCH ×2 (09:51→21:34)
[2017-03-22 10:55] VITALS: BP 118/74; PULSE 76; TEMP 37; O2SAT 95
--- NOTE | 2017-03-22 11:36 | Hospitalist Progress Note ---
Hospitalist Progress Note Date of Service Mar 22, 2017. (Kathryn Florez ., PA-C) Subjective Pt evaluation today including: conversation w/ patient, physical exam, lab review, review of inpatient medication list Voiding: no voiding problems Patient is feeling well this AM. Sitting in bedside chair R chest wall cellulitis aspirated by Dr. Tsang this AM- cultures pending Complains of R chest wall discomfort. No fever/chills overnight. Eating and drinking OK. Small/hard BM this AM- instructed nurse to give another dose of MiraLAX today. Patient denies any fever, chills, sweats, lightheadedness, dizziness, vision changes, CP, palpitations, edema, SOB, wheezing, cough, abdominal pain, nausea, vomiting, diarrhea, urinary symptoms, melena, numbness/tingling, weakness, muscle/joint pain, anxiety/depression, active bleeding. (Kathryn Florez ., PA-C) Medications Current Inpatient Medications Medications (Trade) Dose Ordered Sig/Sebas Route Start Time Stop Time Status Last Admin Dose Admin Sodium Chloride 1,000 ml @ 15 mls/hr Q24H IV 03/19/17 16:18 04/18/17 16:17 03/21/17 16:03 15 MLS/HR Acetaminophen (Tylenol Tab) 650 mg Q6 PRN PO 03/19/17 16:30 04/18/17 16:29 03/21/17 04:03 650 MG Atorvastatin Calcium (Lipitor Tab) 40 mg DAILY PO 03/20/17 09:00 04/19/17 08:59 03/22/17 08:45 40 MG Clonazepam (Klonopin Tab) 0.5 mg QID PO 03/19/17 17:00 04/18/17 16:59 03/22/17 08:45 0.5 MG Docusate Sodium (coLACE CAP) 100 mg BID PO 03/19/17 21:00 04/18/17 20:59 03/22/17 08:45 100 MG Acetaminophen/ Hydrocodone Bitart ([place] 5/325 Tab) 1 tab Q4 PRN PO 03/19/17 16:30 04/02/17 16:29 03/21/17 02:11 1 TAB Lisinopril (Zestril Tab) 2.5 mg QAM PO 03/20/17 09:00 04/19/17 08:59 03/22/17 08:44 2.5 MG Metoprolol Tartrate (Lopressor Tab) 100 mg BID PO 03/19/17 21:00 04/18/17 20:59 03/22/17 08:44 100 MG Multivitamins (Multivitamin Tab) 1 tab QAM PO 03/20/17 09:00 04/19/17 08:59 03/22/17 08:47 1 TAB Nortriptyline HCl (Pamelor Cap) 50 mg HS PO 03/19/17 21:00 04/18/17 20:59 03/21/17 20:32 50 MG Oxybutynin Chloride (Ditropan-Xl Tab) 5 mg QAM PO 03/20/17 09:00 04/19/17 08:59 03/22/17 08:43 5 MG Senna (Senokot Tab) 8.6 mg QAM PO 03/20/17 09:00 04/19/17 08:59 03/22/17 08:44 8.6 MG Venlafaxine HCl (effeXOR EXTENDED REL CAP) 150 mg QAM PO 03/20/17 09:00 04/19/17 08:59 03/22/17 08:44 150 MG Venlafaxine HCl (effeXOR EXTENDED REL CAP) 37.5 mg QAM PO 03/20/17 09:00 04/19/17 08:59 03/22/17 08:45 37.5 MG Fentanyl (Duragesic Patch) 75 mcg Q3D@1900 TD 03/19/17 19:00 04/02/17 18:59 03/19/17 19:48 75 MCG Pantoprazole Sodium (Protonix Tab) 40 mg BID PO 03/19/17 21:00 04/18/17 20:59 03/22/17 08:44 40 MG Sitagliptin Phosphate (Januvia Tab) 50 mg QAM PO 03/20/17 09:00 04/19/17 08:59 03/22/17 08:44 50 MG Ampicillin Sodium/ Sulbactam Sodium 3000 mg/Sodium Chloride 108 ml @ 200 mls/hr Q6H IV 03/19/17 20:00 03/29/17 19:59 03/22/17 07:43 200 MLS/HR Miscellaneous (Iv Fluids Completed) 1 ea PRN PRN N/A 03/19/17 17:15 03/19/18 17:14 Miscellaneous (Fentanyl Patch Remove & Waste) 1 ea Q3D@1900 N/A 03/22/17 19:00 04/21/17 18:59 Miscellaneous Information (Check Fentanyl Patch Placement) 1 ea QS N/A 03/20/17 00:00 04/19/17 00:00 03/22/17 08:43 1 EA Insulin Aspart (novoLOG ASPART) SLIDING SCALE G... ACHS SC 03/20/17 13:15 04/19/17 13:14 Glucose (Glucose 40% Gel) 15-30 GRAMS 15 GRAMS... UD PRN PO 03/20/17 13:30 04/19/17 13:29 Glucose (Glucose Chew Tab) 4-8 Tablets 4 Tabl... UD PRN PO 03/20/17 13:30 04/19/17 13:29 Dextrose (Dextrose 50% 50ML Syringe) 25-50ML OF 50% DW IV FOR... UD PRN IV 03/20/17 13:30 04/19/17 13:29 Glucagon (Glucagon Inj) 1 mg UD PRN SQ 03/20/17 13:30 04/19/17 13:29 Vancomycin HCl 1250 mg/Sodium Chloride 275 ml @ 125 mls/hr Q16H IV 03/22/17 04:00 04/01/17 03:59 03/22/17 04:00 125 MLS/HR Polyethylene (Miralax Powder Packet) 17 gm DAILY PRN PO 03/21/17 09:30 04/20/17 09:29 Vancomycin HCl (Consult) 1 ea UD PRN N/A 03/21/17 09:45 04/20/17 09:44 Heparin Sodium (Porcine) (Heparin Sq 5000 Unit/0.5ml) 5,000 unit Q12 SQ 03/21/17 21:00 04/20/17 20:59 03/22/17 09:51 5,000 UNIT (Kathryn Florez PA-C) Objective Vital Signs Date Time Temp Pulse Resp B/P (MAP) Pulse Ox O2 Delivery O2 Flow Rate FiO2 03/22/17 10:55 37.0 76 18 118/74 (89) 95 Room Air 03/22/17 07:50 Room Air 03/22/17 07:31 37.0 84 18 120/78 (92) 95 Room Air 03/21/17 22:57 37.2 73 16 139/60 (86) 93 Room Air 03/21/17 20:30 75 101/60 (74) 03/21/17 19:30 Room Air 03/21/17 16:00 36.8 69 16 116/76 (89) 98 Room Air (Kathryn Florez, LUZ-C) Physical Exam General Appearance: no apparent distress, + obese Eyes: normal inspection, PERRL ENT: hearing grossly normal Neck: supple Respiratory/Chest: lungs clear, no respiratory distress, no accessory muscle use Cardiovascular: regular rate, rhythm Abdomen: normal bowel sounds, non tender, soft Extremities: no pedal edema, no calf tenderness Neurologic/Psychiatric: alert, normal mood/affect, oriented x 3 Skin: normal color, warm/dry, no rash, + pertinent finding (continued erythema and warmth to R chest wall; incision site clean, dry, and intact) (Kathryn Florez, LUZ-C) Laboratory Results Last 24 Hours Test 03/21/17 12:15 03/22/17 07:12 03/22/17 08:13 Bedside Glucose 138 mg/dl 140 mg/dl White Blood Count 6.83 K/uL Red Blood Count 3.62 M/uL Hemoglobin 10.4 g/dL Hematocrit 33.2 % Mean Corpuscular Volume 91.7 fL Mean Corpuscular Hemoglobin 28.7 pg Mean Corpuscular Hemoglobin Concent 31.3 g/dl RDW Standard Deviation 49.8 fL RDW Coefficient of Variation 14.8 % Platelet Count 203 K/uL Mean Platelet Volume 9.8 fL (Kathryn Florez, PA-C) Assessment and Plan Patient is a 76 y/o female s/p right mastectomy by Dr Tsang on 02/22/17 with noted redness/itchiness to surgical site x 1 day. Right chest wall cellulitis s/p right mastectomy by Dr Tsang on 02/22/17: - Admitted to surgical services - IV Unasyn and Vancomycin pending cultures - BCx- NGTD - UCx- negative - Pain management w/ [place] q4 hrs PRN - Aspiration of fluid collection by Dr. Vasquez on 03/22- cultured - Follow CBC LLE edema: Venous Doppler negative for evidence of DVT Constipation: - Continue Colace 100 mg BID and Senokot 8.6 mg daily - MiraLAX PRN T2DM- HgbA1c 7.2% in 01/2017 : - Continue Januvia 50 mg daily - BSG ACHS and sliding insulin scale Dyslipidemia: Continue Lipitor 40 mg daily HTN: Continue Lisinopril 2.5 mg daily and Lopressor 100 mg BID Anxiety/depression: Continue Effexor 187.5 mg daily, Klonopin 0.5 mg QID, Nortriptyline 50 mg HS h/o DVT- noted GI prophylaxis: Protonix 40 mg BID DVT prophylaxis: Heparin SQ BID Code Status: LEVEL I, FULL Dispo: Resident of [facility]- discharge as per primary team- social work faculty member and PT/OT consulted (Kathryn Florez, PA-C) i personally examined pt and verified all leigh points w Myrtle Florez PAC feeling frustrated, wants to be out of the hospital. constipated. no new problems w chest wall vitlas noted nad breathing unlabored. area of erythema on chest wall largely unchanged, maybe slightly regressed and slightly less bright red. definitely not worse, but maybe only slightly better chest wall cellulitis - WBC and temp improved since starting vanco. continue for polymicrobial coverage constipation - miralax (Jamal Dyer D.O.)
[2017-03-22] MEDS: SODIUM CHLORIDE 0.9% 1000ML 1,000 ML IV SCH (15:23)
[2017-03-22 15:44] VITALS: BP 132/77; PULSE 84; TEMP 37.1; O2SAT 91
[2017-03-22] MEDS ORDERED: POLYETHYLENE (MIRALAX) 17 GM PACK PO ONE (15:45)
[2017-03-22] MEDS: HYDROCODONE/ACETAMOPHEN 5/325MG TAB PO PRN (17:48)
[2017-03-22] MEDS: FENTANYL 75 MCG/HR TDSY TD SCH (19:23)
[2017-03-22] MEDS: FENTANYL PATCH REMOVE & WASTE SCH (19:23)
[2017-03-22] MEDS: NORTRIPTYLINE HCL 25 MG CAP PO SCH (21:25)
[2017-03-22 23:31] VITALS: BP 146/71; PULSE 75; TEMP 37.3; O2SAT 93
[2017-03-23] MEDS: AMPICILLIN/SULBACTAM SOD INJ 3,000 MG in SODIUM CHLORIDE 0.9% 100ML 100 ML IV SCH ×4 (02:16→21:51)
[2017-03-23 06:10] LABS: HEMATOCRIT 31.4 % (37-47); MEAN CELL VOLUME 91.8 fL (80-100); MEAN CORPUSCULAR HEMOGLOBIN 28.4 pg (25-34); MEAN CORPUSCULAR HGB CONC 30.9 g/dl (32-36); MEAN PLATELET VOLUME 8.8 fL (7.4-10.4); PLATELET COUNT 203 K/uL (130-400); RED BLOOD COUNT 3.42 M/uL (4.2-5.4); WHITE BLOOD COUNT 6.89 K/uL (4.8-10.8)
[2017-03-23 06:42] LABS: CREATININE 0.87 mg/dl (0.60-1.20)
--- NOTE | 2017-03-23 07:43 | Surgery Progress Note ---
Surgery Progress Note Date of Service Mar 23, 2017. Subjective No nausea, No vomiting Itching near incision last night Objective Vital Signs: Date Time Temp Pulse Resp B/P (MAP) Pulse Ox O2 Delivery O2 Flow Rate FiO2 03/22/17 23:31 37.3 75 16 146/71 (96) 93 Room Air 03/22/17 21:15 Room Air 03/22/17 15:44 37.1 84 18 132/77 (95) 91 Room Air 03/22/17 15:20 Room Air 03/22/17 10:55 37.0 76 18 118/74 (89) 95 Room Air 03/22/17 07:50 Room Air Respiratory/Chest: + pertinent finding (Less red beneath incision, in general eryhema less intense) Laboratory Results: Results Past 24 Hours Test 03/22/17 08:13 03/22/17 12:21 03/22/17 17:31 03/22/17 21:09 Range/Units Bedside Glucose 140 166 165 177 70-90 mg/dl Test 03/23/17 05:50 Range/Units White Blood Count 6.89 4.8-10.8 K/uL Red Blood Count 3.42 4.2-5.4 M/uL Hemoglobin 9.7 12.0-16.0 g/dL Hematocrit 31.4 37-47 % Mean Corpuscular Volume 91.8 80-100 fL Mean Corpuscular Hemoglobin 28.4 25-34 pg Mean Corpuscular Hemoglobin Concent 30.9 32-36 g/dl RDW Standard Deviation 49.1 36.4-46.3 fL RDW Coefficient of Variation 14.7 11.5-14.5 % Platelet Count 203 130-400 K/uL Mean Platelet Volume 8.8 7.4-10.4 fL Creatinine 0.87 0.60-1.20 mg/dl Est Creatinine Clear Calc Drug Dose 52.4 ml/min Estimated GFR () 75.0 Estimated GFR (Non- 64.7 Diagnostic Interpretation: No organisms or WBC seen on gram stain of fluid, culture still pending WBC normal Assessment & Plan S/P right mastectomy now with chest wall cellulitis, somewhat improved Fluid collection aspirated, gram stain negative, culture pending Continue Unasyn and vanc WBC normal
[2017-03-23 08:47] VITALS: BP 143/75; PULSE 71; TEMP 37; O2SAT 97
[2017-03-23] MEDS: INSULIN ASPART 100 UNITS/ML 3 ML PEN SC SCH ×4 (08:57→21:00)
[2017-03-23] MEDS: CHECK FENTANYL PATCH PLACEMENT SCH ×2 (08:57→16:26)
[2017-03-23] MEDS: CLONAZEPAM 0.5 MG TAB PO SCH ×4 (08:58→21:25)
[2017-03-23] MEDS: ATORVASTATIN 40 MG TAB PO SCH (08:59)
[2017-03-23] MEDS: OXYBUTYNIN CHLORIDE 5 MG TABCR PO SCH (08:59)
[2017-03-23] MEDS: PANTOprazole SOD 40 MG TAB PO SCH ×2 (08:59→21:25)
[2017-03-23] MEDS: SENNA 8.6 MG TAB PO SCH (08:59)
[2017-03-23] MEDS: DOCUSATE SODIUM 100 MG CAP PO SCH ×2 (08:59→21:25)
[2017-03-23] MEDS: VENLAFAXINE HCL XR 150 MG CAPXR PO SCH (09:00)
[2017-03-23] MEDS: MULTIVITAMIN TAB PO SCH (09:00)
[2017-03-23] MEDS: METOPROLOL TARTRATE 100 MG TAB PO SCH ×2 (09:00→21:28)
[2017-03-23] MEDS: LISINOPRIL 2.5 MG TAB PO SCH (09:01)
[2017-03-23] MEDS: SITAGLIPTIN 25 MG TAB PO SCH (09:01)
[2017-03-23] MEDS: VENLAFAXINE HCL XR 37.5 MG CAPXR PO SCH (09:01)
[2017-03-23] MEDS: HEPARIN SOD 5000 UNIT/0.5 ML CARP SQ SCH ×2 (09:04→21:27)
--- NOTE | 2017-03-23 10:21 | Clinical Documentation Query ---
Dr. CAMPO, ELIGIO : CLINICAL DOCUMENTATION QUERY In your clinical opinion is this patient being managed for: ( ) Postprocedural chest wall cellulitis s/p mastectomy, a complication of care (x ) Postprocedural chest wall cellulitis s/p mastectomy, not a complication of care ( ) Not Agree ( ) Other explanation of clinical findings (Please Explain) ( ) Unable to determine (Please Define) ( ) Need to Discuss The medical record reflects the following clinical findings, treatment, and risk factors. Clinical Indicators: Recent mastectomy, seroma, chest wall cellulitis Treatment: IV antibiotics, cultures, drainage of seroma Risk Factors: Recent surgery Please clarify and document your clinical opinion in the progress notes and discharge summary. Terms such as "probable", "suspected", "likely", "questionable", "possible", or "still to be ruled out" are acceptable. IF IN AGREEMENT, YOU MUST DOCUMENT ABOVE DIAGNOSTIC STATEMENT IN DAILY PROGRESS NOTES AND DISCHARGE SUMMARY. This document is not part of the patient's record. Thank You, Mario Lezama, RN [phone]
--- NOTE | 2017-03-23 10:29 | Hospitalist Progress Note ---
Hospitalist Progress Note Date of Service Mar 23, 2017. (Kathryn Florez ., LAILA) Subjective Pt evaluation today including: conversation w/ patient, physical exam, lab review, review of inpatient medication list Voiding: no voiding problems Patient feeling well this AM. Sitting in bedside chair. Eating and drinking OK. +BMs yesterday. Denies any R chest wall discomfort at this time. Patient denies any fever, chills, sweats, lightheadedness, dizziness, vision changes, CP, palpitations, edema, SOB, wheezing, cough, abdominal pain, nausea, vomiting, diarrhea, urinary symptoms, melena, numbness/tingling, weakness, muscle/joint pain, anxiety/depression, active bleeding, or new skin discoloration/changes. (Kathryn Florez ., KESHAVC) Medications Current Inpatient Medications Medications (Trade) Dose Ordered Sig/Sebas Route Start Time Stop Time Status Last Admin Dose Admin Sodium Chloride 1,000 ml @ 15 mls/hr Q24H IV 03/19/17 16:18 04/18/17 16:17 03/22/17 15:23 15 MLS/HR Acetaminophen (Tylenol Tab) 650 mg Q6 PRN PO 03/19/17 16:30 04/18/17 16:29 03/21/17 04:03 650 MG Atorvastatin Calcium (Lipitor Tab) 40 mg DAILY PO 03/20/17 09:00 04/19/17 08:59 03/23/17 08:59 40 MG Clonazepam (Klonopin Tab) 0.5 mg QID PO 03/19/17 17:00 04/18/17 16:59 03/23/17 08:58 0.5 MG Docusate Sodium (coLACE CAP) 100 mg BID PO 03/19/17 21:00 04/18/17 20:59 03/23/17 08:59 100 MG Acetaminophen/ Hydrocodone Bitart ([place] 5/325 Tab) 1 tab Q4 PRN PO 03/19/17 16:30 04/02/17 16:29 03/22/17 17:48 1 TAB Lisinopril (Zestril Tab) 2.5 mg QAM PO 03/20/17 09:00 04/19/17 08:59 03/23/17 09:01 2.5 MG Metoprolol Tartrate (Lopressor Tab) 100 mg BID PO 03/19/17 21:00 04/18/17 20:59 03/23/17 09:00 100 MG Multivitamins (Multivitamin Tab) 1 tab QAM PO 03/20/17 09:00 04/19/17 08:59 03/23/17 09:00 1 TAB Nortriptyline HCl (Pamelor Cap) 50 mg HS PO 03/19/17 21:00 04/18/17 20:59 03/22/17 21:25 50 MG Oxybutynin Chloride (Ditropan-Xl Tab) 5 mg QAM PO 03/20/17 09:00 04/19/17 08:59 03/23/17 08:59 5 MG Senna (Senokot Tab) 8.6 mg QAM PO 03/20/17 09:00 04/19/17 08:59 03/23/17 08:59 8.6 MG Venlafaxine HCl (effeXOR EXTENDED REL CAP) 150 mg QAM PO 03/20/17 09:00 04/19/17 08:59 03/23/17 09:00 150 MG Venlafaxine HCl (effeXOR EXTENDED REL CAP) 37.5 mg QAM PO 03/20/17 09:00 04/19/17 08:59 03/23/17 09:01 37.5 MG Fentanyl (Duragesic Patch) 75 mcg Q3D@1900 TD 03/19/17 19:00 04/02/17 18:59 03/22/17 19:23 75 MCG Pantoprazole Sodium (Protonix Tab) 40 mg BID PO 03/19/17 21:00 04/18/17 20:59 03/23/17 08:59 40 MG Sitagliptin Phosphate (Januvia Tab) 50 mg QAM PO 03/20/17 09:00 04/19/17 08:59 03/23/17 09:01 50 MG Ampicillin Sodium/ Sulbactam Sodium 3000 mg/Sodium Chloride 108 ml @ 200 mls/hr Q6H IV 03/19/17 20:00 03/29/17 19:59 03/23/17 08:57 200 MLS/HR Miscellaneous (Iv Fluids Completed) 1 ea PRN PRN N/A 03/19/17 17:15 03/19/18 17:14 Miscellaneous (Fentanyl Patch Remove & Waste) 1 ea Q3D@1900 N/A 03/22/17 19:00 04/21/17 18:59 03/22/17 19:23 1 EA Miscellaneous Information (Check Fentanyl Patch Placement) 1 ea QS N/A 03/20/17 00:00 04/19/17 00:00 03/23/17 08:57 1 EA Insulin Aspart (novoLOG ASPART) SLIDING SCALE G... ACHS SC 03/20/17 13:15 04/19/17 13:14 Glucose (Glucose 40% Gel) 15-30 GRAMS 15 GRAMS... UD PRN PO 03/20/17 13:30 04/19/17 13:29 Glucose (Glucose Chew Tab) 4-8 Tablets 4 Tabl... UD PRN PO 03/20/17 13:30 04/19/17 13:29 Dextrose (Dextrose 50% 50ML Syringe) 25-50ML OF 50% DW IV FOR... UD PRN IV 03/20/17 13:30 04/19/17 13:29 Glucagon (Glucagon Inj) 1 mg UD PRN SQ 03/20/17 13:30 04/19/17 13:29 Vancomycin HCl 1250 mg/Sodium Chloride 275 ml @ 125 mls/hr Q16H IV 03/22/17 04:00 04/01/17 03:59 03/22/17 21:23 125 MLS/HR Polyethylene (Miralax Powder Packet) 17 gm DAILY PRN PO 03/21/17 09:30 04/20/17 09:29 Vancomycin HCl (Consult) 1 ea UD PRN N/A 03/21/17 09:45 04/20/17 09:44 Heparin Sodium (Porcine) (Heparin Sq 5000 Unit/0.5ml) 5,000 unit Q12 SQ 03/21/17 21:00 04/20/17 20:59 03/23/17 09:04 5,000 UNIT (Kathryn Florez PA-C) Objective Vital Signs Date Time Temp Pulse Resp B/P (MAP) Pulse Ox O2 Delivery O2 Flow Rate FiO2 03/23/17 08:47 37.0 71 17 143/75 (97) 97 Room Air 03/23/17 08:30 Room Air 9/21/17 23:31 37.3 75 16 146/71 (96) 93 Room Air 03/22/17 21:15 Room Air 03/22/17 15:44 37.1 84 18 132/77 (95) 91 Room Air 03/22/17 15:20 Room Air 03/22/17 10:55 37.0 76 18 118/74 (89) 95 Room Air (Kathryn Florez, LUZ-C) Physical Exam General Appearance: no apparent distress, + obese Eyes: PERRL ENT: hearing grossly normal Neck: supple Respiratory/Chest: lungs clear, no respiratory distress, no accessory muscle use Cardiovascular: regular rate, rhythm, + systolic murmur Abdomen: normal bowel sounds, non tender, soft Extremities: no pedal edema, no calf tenderness Neurologic/Psychiatric: alert, normal mood/affect, oriented x 3 Skin: normal color, warm/dry, no rash, + pertinent finding (R chest wall with mild improvement in erythema and warmth; incision site clean, dry, and intact ) (Kathryn Florez, LUZ-C) Laboratory Results Last 24 Hours Test 03/22/17 12:21 03/22/17 17:31 03/22/17 21:09 03/23/17 05:50 Bedside Glucose 166 mg/dl 165 mg/dl 177 mg/dl White Blood Count 6.89 K/uL Red Blood Count 3.42 M/uL Hemoglobin 9.7 g/dL Hematocrit 31.4 % Mean Corpuscular Volume 91.8 fL Mean Corpuscular Hemoglobin 28.4 pg Mean Corpuscular Hemoglobin Concent 30.9 g/dl RDW Standard Deviation 49.1 fL RDW Coefficient of Variation 14.7 % Platelet Count 203 K/uL Mean Platelet Volume 8.8 fL Creatinine 0.87 mg/dl Est Creatinine Clear Calc Drug Dose 52.4 ml/min Estimated GFR () 75.0 Estimated GFR (Non- 64.7 Test 03/23/17 08:19 Bedside Glucose 103 mg/dl (Kathryn Florez, LUZ-C) Assessment and Plan Patient is a 76 y/o female s/p right mastectomy by Dr Tsang on 02/22/17 with noted redness/itchiness to surgical site x 1 day. Right chest wall cellulitis s/p right mastectomy by Dr Tsang on 8/24/17: - Admitted to surgical services - IV Unasyn and Vancomycin pending cultures - BCx- NGTD - UCx- negative - Pain management w/ [place] q4 hrs PRN - Aspiration of fluid collection by Dr. Vasquez on 03/22- cultured - Follow CBC LLE edema: Venous Doppler negative for evidence of DVT Constipation- RESOLVED: - Continue Colace 100 mg BID and Senokot 8.6 mg daily - MiraLAX PRN T2DM- HgbA1c 7.2% in 01/2017 : - Continue Januvia 50 mg daily - BSG ACHS and sliding insulin scale Dyslipidemia: Continue Lipitor 40 mg daily HTN: Continue Lisinopril 2.5 mg daily and Lopressor 100 mg BID Anxiety/depression: Continue Effexor 187.5 mg daily, Klonopin 0.5 mg QID, Nortriptyline 50 mg HS h/o DVT- noted GI prophylaxis: Protonix 40 mg BID DVT prophylaxis: Heparin SQ BID Code Status: LEVEL I, FULL Dispo: Resident of [facility]- discharge as per primary team- social work supervisor and PT/OT consulted We will sign off at this time. Patient is stable from medical standpoint for discharge. Recommend considering Doxycycline + Augmentin at discharge if cultures are negative. (Kathryn Florez ., PA-C) pt seen, case d/w T Vikki PAC WBC and temp resolved. resting comfortably nad cellulitis seems improving likely polymicrobial - appears would be reasonable to dc to SNF on doxy (cover MRSA) and augmentin (cover remainder of possible offenders) will sign off, please do not hesitate to contact if we can be of further assistance (Jamal Dyer D.O.)
[2017-03-23] MEDS ORDERED: VANCOMYCIN TROUGH SCH (11:30)
[2017-03-23] MEDS: VANCOMYCIN INJ 1,250 MG in SODIUM CHLORIDE 0.9% 250ML 250 ML IV SCH (12:06)
[2017-03-23 15:52] VITALS: BP 103/64; PULSE 67; TEMP 36.7; O2SAT 93
[2017-03-23] MEDS: SODIUM CHLORIDE 0.9% 1000ML 1,000 ML IV SCH (16:29)
[2017-03-23] MEDS: NORTRIPTYLINE HCL 25 MG CAP PO SCH (21:25)
[2017-03-23] MEDS ORDERED: NURSING DECISION MEDICATION ORDER SCH (22:30)
[2017-03-23] MEDS ORDERED: COUGH DROP (SUGAR FREE) LOZ 24 LOZ/1 BOX PO PRN (22:45)
[2017-03-23 23:27] VITALS: BP 113/62; PULSE 67; TEMP 37; O2SAT 93
[2017-03-24] MEDS: CHECK FENTANYL PATCH PLACEMENT SCH ×3 (00:22→16:28)
[2017-03-24] MEDS: HYDROCODONE/ACETAMOPHEN 5/325MG TAB PO PRN ×2 (00:35→07:36)
[2017-03-24] MEDS ORDERED: VANCOMYCIN TROUGH SCH (03:30)
[2017-03-24 03:46] LABS: HEMATOCRIT 30.8 % (37-47); MEAN CELL VOLUME 91.7 fL (80-100); MEAN CORPUSCULAR HEMOGLOBIN 28.3 pg (25-34); MEAN CORPUSCULAR HGB CONC 30.8 g/dl (32-36); MEAN PLATELET VOLUME 9.3 fL (7.4-10.4); PLATELET COUNT 205 K/uL (130-400); RED BLOOD COUNT 3.36 M/uL (4.2-5.4); WHITE BLOOD COUNT 7.19 K/uL (4.8-10.8)
[2017-03-24 04:13] LABS: CREATININE 0.85 mg/dl (0.60-1.20)
[2017-03-24] MEDS: AMPICILLIN/SULBACTAM SOD INJ 3,000 MG in SODIUM CHLORIDE 0.9% 100ML 100 ML IV SCH ×3 (04:20→16:27)
[2017-03-24] MEDS: VANCOMYCIN INJ 1,250 MG in SODIUM CHLORIDE 0.9% 250ML 250 ML IV SCH ×2 (05:22→20:47)
[2017-03-24 06:46] VITALS: BP 112/53; PULSE 79; TEMP 36.9; O2SAT 92
--- NOTE | 2017-03-24 07:34 | Surgery Progress Note ---
Surgery Progress Note Date of Service Mar 24, 2017. Subjective Post OP Day: HD 6 + feeling well, + complaints (itching), + flatus, + diet (regular), No nausea, No vomiting Objective Vital Signs: Date Time Temp Pulse Resp B/P (MAP) Pulse Ox O2 Delivery O2 Flow Rate FiO2 03/24/17 06:46 36.9 79 15 112/53 (72) 92 Room Air 03/24/17 00:20 Room Air 03/23/17 23:27 37.0 67 16 113/62 (79) 93 Room Air 03/23/17 16:15 Room Air 03/23/17 15:52 36.7 67 16 103/64 (77) 93 Room Air 03/23/17 08:47 37.0 71 17 143/75 (97) 97 Room Air 03/23/17 08:30 Room Air General Appearance: WD/WN, no apparent distress Head: normocephalic, atraumatic Neck: supple, trachea midline Respiratory/Chest: lungs clear Cardiovascular: regular rate, rhythm Abdomen: normal bowel sounds, non tender, non distended, soft Incision(s): clean, intact, erythema (improved) Extremities: non-tender, no pedal edema Laboratory Results: Results Past 24 Hours Test 03/23/17 08:19 03/23/17 12:12 03/23/17 17:31 03/23/17 20:42 Range/Units Bedside Glucose 103 111 143 127 70-90 mg/dl Test 03/24/17 03:28 Range/Units White Blood Count 7.19 4.8-10.8 K/uL Red Blood Count 3.36 4.2-5.4 M/uL Hemoglobin 9.5 12.0-16.0 g/dL Hematocrit 30.8 37-47 % Mean Corpuscular Volume 91.7 80-100 fL Mean Corpuscular Hemoglobin 28.3 25-34 pg Mean Corpuscular Hemoglobin Concent 30.8 32-36 g/dl RDW Standard Deviation 48.4 36.4-46.3 fL RDW Coefficient of Variation 14.5 11.5-14.5 % Platelet Count 205 130-400 K/uL Mean Platelet Volume 9.3 7.4-10.4 fL Creatinine 0.85 0.60-1.20 mg/dl Est Creatinine Clear Calc Drug Dose 53.6 ml/min Estimated GFR () 77.1 Estimated GFR (Non- 66.6 Vancomycin Level Trough 20.1 SEE COMMENT mcg/ml Assessment & Plan cellulitis at mastectomy incision -IV abx -seems to be responding
[2017-03-24] MEDS: INSULIN ASPART 100 UNITS/ML 3 ML PEN SC SCH ×4 (08:00→20:43)
[2017-03-24 09:00] VITALS: BP 138/46; PULSE 70
[2017-03-24] MEDS: LISINOPRIL 2.5 MG TAB PO SCH (09:00)
[2017-03-24] MEDS: METOPROLOL TARTRATE 100 MG TAB PO SCH ×2 (09:00→20:48)
[2017-03-24] MEDS: VENLAFAXINE HCL XR 150 MG CAPXR PO SCH (09:12)
[2017-03-24] MEDS: ATORVASTATIN 40 MG TAB PO SCH (09:12)
[2017-03-24] MEDS: MULTIVITAMIN TAB PO SCH (09:12)
[2017-03-24] MEDS: SITAGLIPTIN 25 MG TAB PO SCH (09:12)
[2017-03-24] MEDS: SENNA 8.6 MG TAB PO SCH (09:12)
[2017-03-24] MEDS: PANTOprazole SOD 40 MG TAB PO SCH ×2 (09:12→20:48)
[2017-03-24] MEDS: OXYBUTYNIN CHLORIDE 5 MG TABCR PO SCH (09:12)
[2017-03-24] MEDS: DOCUSATE SODIUM 100 MG CAP PO SCH ×2 (09:12→20:48)
[2017-03-24] MEDS: VENLAFAXINE HCL XR 37.5 MG CAPXR PO SCH (09:12)
[2017-03-24] MEDS: CLONAZEPAM 0.5 MG TAB PO SCH ×4 (09:13→20:48)
--- NOTE | 2017-03-24 09:21 | Pharmacy Progress Note ---
Pharmacy Antibiotic Prog Note Date of Service Mar 24, 2017. Subjective The patient is currently receiving vancomycin and unasyn for chest wall cellulitis infection The patient is currently on day # 4 of IV therapy. Objective Height (Feet): 5 Height (Inches): 1.00 Weight (Kilograms): 79.100 Levels: Item Value Date Time Vancomycin Level Trough 20.1 mcg/ml 03/24/17 0328 Lab Results (24hrs): Test 03/23/17 20:42 03/24/17 03:28 03/24/17 08:16 Bedside Glucose 127 mg/dl (70-90) 113 mg/dl (70-90) White Blood Count 7.19 K/uL (4.8-10.8) Red Blood Count 3.36 M/uL (4.2-5.4) Hemoglobin 9.5 g/dL (12.0-16.0) Hematocrit 30.8 % (37-47) Mean Corpuscular Volume 91.7 fL (80-100) Mean Corpuscular Hemoglobin 28.3 pg (25-34) Mean Corpuscular Hemoglobin Concent 30.8 g/dl (32-36) RDW Standard Deviation 48.4 fL (36.4-46.3) RDW Coefficient of Variation 14.5 % (11.5-14.5) Platelet Count 205 K/uL (130-400) Mean Platelet Volume 9.3 fL (7.4-10.4) Creatinine 0.85 mg/dl (0.60-1.20) Est Creatinine Clear Calc Drug Dose 53.6 ml/min Estimated GFR () 77.1 Estimated GFR (Non- 66.6 Vancomycin Level Trough 20.1 mcg/ml (SEE COMMENT) Assessment & Plan Patient on vancomycin and unasyn for chest wall cellulitis s/p right mastectomy. Cultures negative thus far. Vancomycin: * Trough level this am therapeutic at ~20 mcg/ml (goal 15-20 mcg/ml); previous dose given on time, however IV line had to be replaced while running, therefore rest of antibiotic was given at about ~1400 yesterday ; therefore, expect true trough to be slightly lower than reported * Will continue with current regimen for now and recheck trough prior to the 1200 dose on 03/25 to ensure therapeutic Pharmacy will continue to follow and will adjust dose/frequency as necessary. Thank you
[2017-03-24] MEDS: HEPARIN SOD 5000 UNIT/0.5 ML CARP SQ SCH ×2 (10:25→20:58)
[2017-03-24 16:15] VITALS: BP 122/68; PULSE 76; TEMP 37; O2SAT 95
[2017-03-24] MEDS: SODIUM CHLORIDE 0.9% 1000ML 1,000 ML IV SCH (16:27)
[2017-03-24] MEDS: NORTRIPTYLINE HCL 25 MG CAP PO SCH (20:48)
[2017-03-24 20:52] VITALS: BP 147/74; PULSE 76
[2017-03-24 22:55] VITALS: BP 146/72; PULSE 60; TEMP 37.2; O2SAT 93
[2017-03-25] MEDS: AMPICILLIN/SULBACTAM SOD INJ 3,000 MG in SODIUM CHLORIDE 0.9% 100ML 100 ML IV SCH ×5 (00:13→21:28)
[2017-03-25] MEDS: CHECK FENTANYL PATCH PLACEMENT SCH ×4 (00:14→23:30)
[2017-03-25] MEDS: HYDROCODONE/ACETAMOPHEN 5/325MG TAB PO PRN ×3 (00:14→14:08)
[2017-03-25 07:17] LABS: CREATININE 0.84 mg/dl (0.60-1.20)
[2017-03-25 07:35] VITALS: BP 127/75; PULSE 71; TEMP 37.2; O2SAT 93
[2017-03-25] MEDS: INSULIN ASPART 100 UNITS/ML 3 ML PEN SC SCH ×4 (09:16→21:00)
[2017-03-25] MEDS: CLONAZEPAM 0.5 MG TAB PO SCH ×4 (09:17→21:28)
[2017-03-25] MEDS: DOCUSATE SODIUM 100 MG CAP PO SCH ×2 (09:18→21:28)
[2017-03-25] MEDS: PANTOprazole SOD 40 MG TAB PO SCH ×2 (09:18→21:28)
[2017-03-25] MEDS: METOPROLOL TARTRATE 100 MG TAB PO SCH ×2 (09:18→21:29)
[2017-03-25] MEDS: VENLAFAXINE HCL XR 150 MG CAPXR PO SCH (09:18)
[2017-03-25] MEDS: ATORVASTATIN 40 MG TAB PO SCH (09:18)
[2017-03-25] MEDS: SENNA 8.6 MG TAB PO SCH (09:18)
[2017-03-25] MEDS: VENLAFAXINE HCL XR 37.5 MG CAPXR PO SCH (09:19)
[2017-03-25] MEDS: OXYBUTYNIN CHLORIDE 5 MG TABCR PO SCH (09:19)
[2017-03-25] MEDS: LISINOPRIL 2.5 MG TAB PO SCH (09:19)
[2017-03-25] MEDS: SITAGLIPTIN 25 MG TAB PO SCH (09:20)
[2017-03-25] MEDS: MULTIVITAMIN TAB PO SCH (09:20)
[2017-03-25] MEDS: HEPARIN SOD 5000 UNIT/0.5 ML CARP SQ SCH ×2 (09:23→21:36)
--- NOTE | 2017-03-25 09:34 | Surgery Progress Note ---
Surgery Progress Note Date of Service Mar 25, 2017. Subjective Post OP Day: HD 7 + feeling well, + complaints (pain better), + flatus, + diet (regular), No nausea, No vomiting Objective Vital Signs: Date Time Temp Pulse Resp B/P (MAP) Pulse Ox O2 Delivery O2 Flow Rate FiO2 03/25/17 07:35 37.2 71 17 127/75 (92) 93 Room Air 03/25/17 00:00 Room Air 03/24/17 22:55 37.2 60 16 146/72 (96) 93 Room Air 03/24/17 20:52 76 147/74 (98) 03/24/17 16:15 37.0 76 18 122/68 (86) 95 Room Air 03/24/17 16:00 Room Air General Appearance: WD/WN, no apparent distress Head: normocephalic, atraumatic Neck: no adenopathy, trachea midline Respiratory/Chest: lungs clear, + pertinent finding (right chest stable erythema) Cardiovascular: regular rate, rhythm Abdomen: normal bowel sounds, non tender, non distended, soft Incision(s): clean, dry, erythema Extremities: non-tender, no pedal edema Laboratory Results: Results Past 24 Hours Test 03/24/17 12:49 03/24/17 17:22 03/24/17 20:33 03/25/17 06:21 Range/Units Bedside Glucose 105 126 114 70-90 mg/dl Creatinine 0.84 0.60-1.20 mg/dl Est Creatinine Clear Calc Drug Dose 54.3 ml/min Estimated GFR () 78.2 Estimated GFR (Non- 67.5 Test 03/25/17 07:54 Range/Units Bedside Glucose 112 70-90 mg/dl Assessment & Plan cellulitis at mastectomy incision -IV abx -pain better -erythema stable
[2017-03-25] MEDS ORDERED: VANCOMYCIN TROUGH ONE (11:30)
[2017-03-25] MEDS: VANCOMYCIN INJ 1,250 MG in SODIUM CHLORIDE 0.9% 250ML 250 ML IV SCH (12:56)
[2017-03-25 15:11] VITALS: BP 120/70; PULSE 70; TEMP 36.8; O2SAT 92
--- NOTE | 2017-03-25 16:14 | Pharmacy Progress Note ---
Pharmacy Antibiotic Prog Note Date of Service Mar 25, 2017. Subjective The patient is currently receiving vancomycin 1250 mg iv q16 hr The patient is currently on day #5 of iv therapy Objective Height (Feet): 5 Height (Inches): 1.00 Weight (Kilograms): 79.100 Lab Results (24hrs): Test 03/25/17 06:21 03/25/17 07:54 03/25/17 11:42 03/25/17 12:12 Creatinine 0.84 mg/dl (0.60-1.20) Est Creatinine Clear Calc Drug Dose 54.3 ml/min Estimated GFR () 78.2 Estimated GFR (Non- 67.5 Bedside Glucose 112 mg/dl (70-90) 118 mg/dl (70-90) Vancomycin Level Trough 21.9 mcg/ml (SEE COMMENT) Assessment & Plan Vancomycin: * Trough this am was slightly supratherapeutic at ~21 mcg/ml (goal 15-20 mcg/ml) * Will decrease dose to 1000 mg iv q 16 hrs * Cultures are negative thus far, will follow Pharmacy will continue to follow and will adjust dose/frequency as necessary. Thank you
[2017-03-25] MEDS: SODIUM CHLORIDE 0.9% 1000ML 1,000 ML IV SCH (16:21)
[2017-03-25] MEDS: FENTANYL 75 MCG/HR TDSY TD SCH (19:22)
[2017-03-25] MEDS: FENTANYL PATCH REMOVE & WASTE SCH (19:22)
[2017-03-25] MEDS: NORTRIPTYLINE HCL 25 MG CAP PO SCH (21:28)
[2017-03-25 21:32] VITALS: BP 145/74; PULSE 86
[2017-03-25 22:55] VITALS: BP 137/60; PULSE 89; TEMP 37.2; O2SAT 94
[2017-03-26] MEDS: AMPICILLIN/SULBACTAM SOD INJ 3,000 MG in SODIUM CHLORIDE 0.9% 100ML 100 ML IV SCH ×4 (04:17→23:17)
[2017-03-26] MEDS: VANCOMYCIN INJ 1,000 MG in SODIUM CHLORIDE 0.9% 250ML 250 ML IV SCH ×2 (04:18→20:19)
[2017-03-26 07:28] VITALS: BP 109/65; PULSE 57; TEMP 36.5; O2SAT 94
[2017-03-26] MEDS: INSULIN ASPART 100 UNITS/ML 3 ML PEN SC SCH ×4 (08:00→20:19)
[2017-03-26] MEDS: CHECK FENTANYL PATCH PLACEMENT SCH ×3 (08:08→23:26)
[2017-03-26] MEDS: METOPROLOL TARTRATE 100 MG TAB PO SCH ×2 (09:00→20:29)
[2017-03-26] MEDS: VENLAFAXINE HCL XR 150 MG CAPXR PO SCH (09:11)
[2017-03-26] MEDS: VENLAFAXINE HCL XR 37.5 MG CAPXR PO SCH (09:11)
[2017-03-26] MEDS: MULTIVITAMIN TAB PO SCH (09:12)
[2017-03-26] MEDS: SITAGLIPTIN 25 MG TAB PO SCH (09:12)
[2017-03-26] MEDS: LISINOPRIL 2.5 MG TAB PO SCH (09:14)
[2017-03-26] MEDS: SENNA 8.6 MG TAB PO SCH (09:14)
[2017-03-26] MEDS: OXYBUTYNIN CHLORIDE 5 MG TABCR PO SCH (09:15)
[2017-03-26] MEDS: PANTOprazole SOD 40 MG TAB PO SCH ×2 (09:15→20:24)
[2017-03-26] MEDS: CLONAZEPAM 0.5 MG TAB PO SCH ×4 (09:20→20:31)
[2017-03-26] MEDS: ATORVASTATIN 40 MG TAB PO SCH (09:21)
[2017-03-26] MEDS: DOCUSATE SODIUM 100 MG CAP PO SCH ×2 (09:21→20:23)
[2017-03-26 09:24] VITALS: BP 98/60; PULSE 59
[2017-03-26] MEDS: HEPARIN SOD 5000 UNIT/0.5 ML CARP SQ SCH ×2 (09:31→20:32)
--- NOTE | 2017-03-26 14:20 | Surgery Progress Note ---
Surgery Progress Note Date of Service Mar 26, 2017. Subjective + feeling well Only a few sites that are painful Objective Vital Signs: Date Time Temp Pulse Resp B/P (MAP) Pulse Ox O2 Delivery O2 Flow Rate FiO2 03/26/17 09:24 59 98/60 (73) 03/26/17 07:35 Room Air 03/26/17 07:28 36.5 57 16 109/65 (80) 94 Room Air 03/25/17 23:30 Room Air 03/25/17 22:55 37.2 89 20 137/60 (85) 94 Room Air 03/25/17 21:32 86 145/74 (97) 03/25/17 15:30 Room Air 03/25/17 15:11 36.8 70 18 120/70 (87) 92 Room Air Respiratory/Chest: + pertinent finding (Erythema decreased today) Laboratory Results: Results Past 24 Hours Test 03/25/17 17:04 03/25/17 20:34 03/26/17 07:52 03/26/17 11:54 Range/Units Bedside Glucose 163 134 87 112 70-90 mg/dl Diagnostic Interpretation: Cultures all negative to this point Assessment & Plan S/P right mastectomy now with chest wall cellulitis, somewhat improved again today Fluid collection aspirated, culture negative Continue Unasyn and vanc WBC normal
[2017-03-26 15:27] VITALS: BP 126/73; PULSE 73; TEMP 37.2; O2SAT 95
[2017-03-26] MEDS: SODIUM CHLORIDE 0.9% 1000ML 1,000 ML IV SCH (15:42)
[2017-03-26] MEDS: HYDROCODONE/ACETAMOPHEN 5/325MG TAB PO PRN (17:59)
[2017-03-26] MEDS: NORTRIPTYLINE HCL 25 MG CAP PO SCH (20:24)
[2017-03-26 20:25] VITALS: BP 137/69; PULSE 83
[2017-03-26 22:55] VITALS: BP 146/69; PULSE 75; TEMP 36.8; O2SAT 93
[2017-03-27] MEDS: AMPICILLIN/SULBACTAM SOD INJ 3,000 MG in SODIUM CHLORIDE 0.9% 100ML 100 ML IV SCH ×4 (04:18→22:03)
[2017-03-27 07:30] VITALS: BP 149/74; PULSE 64; TEMP 36.9; O2SAT 95
[2017-03-27] MEDS: INSULIN ASPART 100 UNITS/ML 3 ML PEN SC SCH ×4 (08:00→21:00)
[2017-03-27] MEDS: CHECK FENTANYL PATCH PLACEMENT SCH ×2 (08:05→15:59)
[2017-03-27 08:33] LABS: CREATININE 1.1 mg/dl (0.60-1.20)
[2017-03-27] MEDS: SENNA 8.6 MG TAB PO SCH (09:00)
[2017-03-27] MEDS: DOCUSATE SODIUM 100 MG CAP PO SCH ×2 (09:00→21:00)
[2017-03-27] MEDS: OXYBUTYNIN CHLORIDE 5 MG TABCR PO SCH (09:17)
[2017-03-27] MEDS: VENLAFAXINE HCL XR 150 MG CAPXR PO SCH (09:18)
[2017-03-27] MEDS: SITAGLIPTIN 25 MG TAB PO SCH (09:19)
[2017-03-27] MEDS: VENLAFAXINE HCL XR 37.5 MG CAPXR PO SCH (09:19)
[2017-03-27] MEDS: METOPROLOL TARTRATE 100 MG TAB PO SCH ×2 (09:20→22:03)
[2017-03-27] MEDS: ATORVASTATIN 40 MG TAB PO SCH (09:20)
[2017-03-27] MEDS: PANTOprazole SOD 40 MG TAB PO SCH ×2 (09:21→22:03)
[2017-03-27] MEDS: LISINOPRIL 2.5 MG TAB PO SCH (09:21)
[2017-03-27] MEDS: MULTIVITAMIN TAB PO SCH (09:22)
[2017-03-27] MEDS: CLONAZEPAM 0.5 MG TAB PO SCH ×4 (09:23→22:03)
[2017-03-27] MEDS: HEPARIN SOD 5000 UNIT/0.5 ML CARP SQ SCH ×2 (10:08→22:05)
[2017-03-27 11:15] VITALS: BP 149/76; PULSE 62; TEMP 37; O2SAT 95
--- NOTE | 2017-03-27 11:26 | Surgery Progress Note ---
Surgery Progress Note Date of Service Mar 27, 2017. Subjective + diet (toleraing regular diet), No nausea, No vomiting Less pain Objective Vital Signs: Date Time Temp Pulse Resp B/P (MAP) Pulse Ox O2 Delivery O2 Flow Rate FiO2 03/27/17 11:15 37.0 62 18 149/76 (100) 95 Room Air 03/27/17 07:40 Room Air 03/27/17 07:30 36.9 64 16 149/74 (99) 95 Room Air 03/26/17 23:26 Room Air 03/26/17 22:55 36.8 75 16 146/69 (94) 93 Room Air 03/26/17 20:25 83 137/69 (91) 03/26/17 15:30 Room Air 03/26/17 15:27 37.2 73 18 126/73 (90) 95 Room Air Laboratory Results: Results Past 24 Hours Test 03/26/17 11:54 03/26/17 16:57 03/26/17 20:18 03/27/17 07:53 Range/Units Bedside Glucose 112 107 136 70-90 mg/dl Creatinine 1.10 0.60-1.20 mg/dl Est Creatinine Clear Calc Drug Dose 41.4 ml/min Estimated GFR () 56.5 Estimated GFR (Non- 48.7 Test 03/27/17 08:02 Range/Units Bedside Glucose 127 70-90 mg/dl Chest wall erythema markedly improved today. Assessment & Plan S/P right mastectomy now with chest wall cellulitis, markedly improved today Fluid collection aspirated, culture negative Continue Unasyn and vanc WBC normal One more day of IV antibiotics, probable home tomorrow with PO antibiotics
[2017-03-27 11:29] VITALS: O2SAT 95
[2017-03-27] MEDS: VANCOMYCIN INJ 1,000 MG in SODIUM CHLORIDE 0.9% 250ML 250 ML IV SCH (12:25)
[2017-03-27 15:38] VITALS: BP 153/75; PULSE 66; TEMP 37.2; O2SAT 93
[2017-03-27] MEDS: SODIUM CHLORIDE 0.9% 1000ML 1,000 ML IV SCH (15:58)
[2017-03-27 22:00] VITALS: BP 147/67; PULSE 69
[2017-03-27] MEDS: NORTRIPTYLINE HCL 25 MG CAP PO SCH (22:03)
[2017-03-27 22:52] VITALS: BP 137/71; PULSE 68; TEMP 37; O2SAT 95
[2017-03-28] MEDS: CHECK FENTANYL PATCH PLACEMENT SCH ×2 (00:55→08:28)
[2017-03-28] MEDS ORDERED: VANCOMYCIN TROUGH SCH (03:30)
[2017-03-28] MEDS: AMPICILLIN/SULBACTAM SOD INJ 3,000 MG in SODIUM CHLORIDE 0.9% 100ML 100 ML IV SCH ×2 (04:19→10:42)
[2017-03-28] MEDS: VANCOMYCIN INJ 1,000 MG in SODIUM CHLORIDE 0.9% 250ML 250 ML IV SCH (05:28)
[2017-03-28 06:50] VITALS: BP 130/67; PULSE 59; TEMP 36.6; O2SAT 91
[2017-03-28] MEDS: INSULIN ASPART 100 UNITS/ML 3 ML PEN SC SCH ×2 (08:00→12:00)
--- NOTE | 2017-03-28 08:28 | Pharmacy Progress Note ---
Pharmacy Abx Dose Short Note Date of Service Mar 28, 2017. Assessment & Plan Assessment 76 year old female receiving vancomycin/Unasyn for treatment of chest wall cellulitis s/p mastectomy Day # 8 of antimicrobial therapy. Plan Vancomycin * Trough level of 20 mcg/mL is therapeutic. * Continue dose of 1000 mg IV every 16 hours * Goal trough level for cellulitis with risk factors for resistance : 15 to 20 mcg/mL * Did not order additional trough, discharge pending for today Pharmacy will continue to follow and will adjust dose/frequency as necessary. Thank you.
[2017-03-28] MEDS: DOCUSATE SODIUM 100 MG CAP PO SCH (09:00)
[2017-03-28] MEDS: SENNA 8.6 MG TAB PO SCH (09:00)
[2017-03-28] MEDS: OXYBUTYNIN CHLORIDE 5 MG TABCR PO SCH (09:04)
[2017-03-28] MEDS: LISINOPRIL 2.5 MG TAB PO SCH (09:05)
[2017-03-28] MEDS: PANTOprazole SOD 40 MG TAB PO SCH (09:05)
[2017-03-28] MEDS: VENLAFAXINE HCL XR 150 MG CAPXR PO SCH (09:06)
[2017-03-28] MEDS: VENLAFAXINE HCL XR 37.5 MG CAPXR PO SCH (09:06)
[2017-03-28] MEDS: ATORVASTATIN 40 MG TAB PO SCH (09:07)
[2017-03-28] MEDS: MULTIVITAMIN TAB PO SCH (09:07)
[2017-03-28] MEDS: SITAGLIPTIN 25 MG TAB PO SCH (09:08)
[2017-03-28 09:09] VITALS: BP 150/82; PULSE 84
[2017-03-28] MEDS: METOPROLOL TARTRATE 100 MG TAB PO SCH (09:14)
[2017-03-28] MEDS: CLONAZEPAM 0.5 MG TAB PO SCH ×2 (09:14→13:11)
[2017-03-28] MEDS: HEPARIN SOD 5000 UNIT/0.5 ML CARP SQ SCH (09:20)
[2017-03-28] MEDS ORDERED: AMOX875T PO (09:51)
--- NOTE | 2017-03-28 09:53 | Discharge Instructions ---
Discharge Instructions Date of Service Mar 28, 2017. Admission Reason for Admission: Cellulitis Of Chest Wall Discharge Discharge Diagnosis / Problem: same Discharge Goals Goal(s): Decrease discomfort, Improve function Activity Recommendations Activity Limitations: as noted below No submerging incision underwater (no bathing, swimming or hot tubs) No heavy lifting with right arm or shaking or jostling for 2 weeks [address] while taking narcotic pain medication . Instructions / Follow-Up Instructions / Follow-Up May shower starting today Gently clean incision with soap and water Follow-up with Dr. Tsang in 1 week, please call office at [phone] to make an appointment Please take the entire course of Antibiotics for 1 week Current Hospital Diet Patient's current hospital diet: Diabetes Type 2 Diet Discharge Diet Recommended Diet: Regular Diet Pending Studies Studies pending at discharge: no Laboratory Results Hemoglobin A1c Test 02/09/17 04:37 Range/Units Estimated Average Glucose 160 mg/dl Hemoglobin A1c 7.2 H 4.5-5.6 % Lipid Panel Test 02/09/17 04:37 Range/Units Triglycerides Level 642 H 0-150 mg/dl Cholesterol Level 190 0-200 mg/dl HDL Cholesterol 29 mg/dl Cholesterol/HDL Ratio 6.6 LDL Cholesterol, Calculated mg/dl Medical Emergencies . Who to Call and When: Medical Emergencies: If at any time you feel your situation is an emergency, please call 911 immediately. . Non-Emergent Contact Non-Emergency issues call your: Primary Care Provider, Surgeon Call Non-Emergent contact if: you have a fever, temperature is above 101.5, your pain is not controlled, your pain is worsening, wound has increased drainage, wound has increased redness, wound has increased pain . "Provider Documentation" section prepared by Arianne Bello. . VTE Core Measure Inpt VTE Proph given/why not?: SCD's
--- NOTE | 2017-03-28 10:40 | Surgery Progress Note ---
Surgery Progress Note Date of Service Mar 28, 2017. Subjective Post OP Day: HD # 6 + feeling well, + diet, No complaints, No chest pain, No SOB, No nausea, No vomiting no fever, chills, or sweats overnight no increasing pain, only when palpated Objective Vital Signs: Date Time Temp Pulse Resp B/P (MAP) Pulse Ox O2 Delivery O2 Flow Rate FiO2 03/28/17 09:09 84 150/82 (104) 03/28/17 07:45 Room Air 03/28/17 06:50 36.6 59 15 130/67 (88) 91 Room Air 03/28/17 00:15 Room Air 03/27/17 22:52 37.0 68 18 137/71 (93) 95 Room Air 03/27/17 22:00 69 147/67 (93) 03/27/17 15:55 Room Air 03/27/17 15:38 37.2 66 18 153/75 (101) 93 Room Air 03/27/17 11:29 95 Room Air 03/27/17 11:15 37.0 62 18 149/76 (100) 95 Room Air General Appearance: WD/WN, no apparent distress Head: normocephalic, atraumatic Neck: trachea midline Respiratory/Chest: no respiratory distress, no accessory muscle use Incision(s): clean, dry, intact, erythema (erythema surrounding Right Mastectomy incision, no streaking present. Stable compared to yesterday. Mild tenderness to palpation. No induration or fluctance) Laboratory Results: Results Past 24 Hours Test 03/27/17 12:00 03/27/17 16:55 03/27/17 20:25 03/28/17 03:37 Range/Units Bedside Glucose 166 114 126 70-90 mg/dl Vancomycin Level Trough 20.0 SEE COMMENT mcg/ml Test 03/28/17 07:52 Range/Units Bedside Glucose 147 70-90 mg/dl Assessment & Plan Cellulitis of the right Chest S/P right Mastectomy 02/22/17 - vitals stable - afebrile - mild pain, right chest stable - erythema overall drastically improved, stable compared to yesterday Plan: D/C home to [facility] today Home with PO abx, Augmentin for 7 days Continue regular diet Discharge instructions reviewed Follow-up with Dr. Tsang in [address] Tsang who is in agreement with above stated findings and treatment plan.
[2017-03-28] MEDS ORDERED: DOXY1TAB6 PO (10:50)
[2017-03-28] MEDS ORDERED: HYDR-5688 PO (11:49)
[2017-03-28] MEDS ORDERED: CLON0.5T3 PO (12:50)
[2017-03-28 12:53] VITALS: BP 150/82; PULSE 84; TEMP 36.6; O2SAT 91
[2017-03-29 06:53] VITALS: BP 173/75; PULSE 77; TEMP 36.3; O2SAT 96
--- NOTE | 2017-03-30 10:36 | Discharge Summary ---
Discharge Summary Dates Admission Date / Time: Mar 22, 2017 at 13:43 Discharge Date: Mar 28, 2017 Dispostion / Condition Discharge Disposition: nursing home facility Condition at Discharge: Good Principal Diagnosis (1) Cellulitis of chest wall Problem List (1) Cellulitis of chest wall (2) Breast cancer in female (3) Bilateral hip pain (4) PERSONAL HX OF TIA,& CEREBRAL INFARCTION W/OUT RES DEFICITS (5) Depression (6) Diabetes mellitus Consultations / Procedures Consultations: Medicine Procedures: Aspiration of chest wall fluid collection Pending Studies / Follow-Up None Medication Reconciliation New Medications: Amoxicillin & Pot Clavulanate (Augmentin 875-125 mg) 1 Tab Tab 1 TAB PO BID, #14 TAB Clonazepam (Klonopin) 0.5 Mg Tab 1 TAB PO QID for 30 Days, #120 TAB Doxycycline Hyclate (Doxycycline Hyclate) 100 Mg Tab 1 TAB PO BID for 7 Days, #14 TAB Hydrocodone/Acetaminophen 5MG/325MG ([place] 5MG/325MG) Tab 1-2 TABLET PO Q4H PRN for Pain, #30 TAB Continued Medications: Acetaminophen (Mapap) 325 Mg Tab 1300 MG PO BID PRN for PAIN OR TEMP Aspirin (Ecotrin Low Strength) 81 Mg Tab 81 MG PO QAM Atorvastatin (Lipitor) 40 Mg Tab 40 MG PO DAILY, TAB Cholecalciferol (Vitamin D3) 1,000 Unit Tab 1000 INTER.UNIT PO DAILY for 90 Days, TAB 3 Refills Docusate Sodium (Colace) 100 Mg Cap 1 CAP PO BID for 30 Days, #60 CAP Fentanyl (Fentanyl) 75 Mcg/Hr Dis 75 MCG TP [id number] Lisinopril (Zestril) 2.5 Mg Tab 2.5 MG PO QAM Metoprolol Tartrate (Lopressor) 100 Mg Tab 100 MG PO BID, TAB Multivitamin (Multivitamin) Tab 1 TAB PO QAM, TAB Nortriptyline (Pamelor) 50 Mg Cap 50 MG PO HS, CAP Omeprazole (Omeprazole) 20 Mg Tab 40 MG PO BID Oxybutynin Chloride (Ditropan Xl) 5 Mg Tab 5 MG PO QAM for 30 Days, #30 TAB 5 Refills Senna (Senokot) 8.6 Mg Tab 1 TAB PO QAM, TAB Sitagliptin (Januvia) 50 Mg Tab 50 MG PO QAM, TAB Venlafaxine Hcl (Effexor Xr) 150 Mg Cap 150 MG PO QAM for 30 Days, #30 CAP 1 Refill ADD TO 37.5 MG FOR 187.5 MG TOTAL Venlafaxine Hcl (Venlafaxine Extended Rel) 37.5 Mg Cap 1 CAP PO DAILY for 30 Days, #30 CAP 2 Refills ADD TO 150 MG DOSE FOR TOTAL 187.5 MG Admission HPI Per the Admitting provider: This is a 76-year-old female who underwent a right mastectomy with exploration of the right axilla on 02/12/2017. She had been doing well until yesterday when she noticed a small lump on the anterior chest wall and today it was noted to be red. There is pain where the redness is. There has been no drainage from the incision or from the drain site. She has had no fever or chills. She denies nausea and vomiting. She is able to eat. Her bowels are moving. Hospital Course (1) Cellulitis of chest wall Patient was admitted to Medical/surgical floor for Observation. She was started on IV Zosyn and all of her home medication were continued including her PO [place] as needed for pain. Regular diet was continued. Activity as tolerated. Medicine was consulted to evaluate and treat comorbidities. Her white blood cell count on admission was normal at 7.90. Blood and urine cultures were obtained. HD # 1 she was doing well, pain controlled, no significant improvement in erythema. HD#2 she had a fluid collection which was aspirated by Dr. Tsang and sent for culture and sensitivity (Negative). IV Vancomycin was added to antibiotic regimen given increase in WBC at 12.06. HD # 3 leukocytosis resolved and erythema slowly improving. She was kept over the weekend and into the next week given persistent erythema. Blood and urine cultures negative. Was afebrile throughout her hospital stay. On HD # 9 she was discharged back to [facility] in stable condition. She was given PO Augment and Doxycylcine for 7 day course. Will have follow-up with Dr. Tsang in 1 week. Discharge Instructions as given to patient Copies To Primary Care Provider: Paul Deng M.D..
== END 2017-03-28 14:00 | DRG 601 ==
LOC: EDBD 12:41 → C.EDC 12:42 → C.MSN 16:30 → UNDOADMOB 16:30 → ENRESERV 16:56 → OBSVTOIN 03-22 13:43
PROVIDERS: ADMIT Surgery; ATTEND Surgery
PROC: 0J963ZX Drainage of Chest Subcutaneous Tissue and Fascia, Percutaneous Approach, Diagnostic (ICD-10-PCS; principal; 2017-03-19)
DX: N61.0 Mastitis without abscess (principal); F32.9 Major depressive disorder, single episode, unspecified; I73.00 Raynaud's syndrome without gangrene; E11.9 Type 2 diabetes mellitus without complications; E78.00 Pure hypercholesterolemia, unspecified; Z85.3 Personal history of malignant neoplasm of breast; Z90.10 Acquired absence of unspecified breast and nipple; Z86.73 Personal history of transient ischemic attack (TIA), and cerebral infarction without residual deficits; Z80.9 Family history of malignant neoplasm, unspecified

== ENCOUNTER → 2017-04-05 | Outpatient (CLI) | payer BC ==
[~2017-04-05] MED LIST changes: +AMOX875T PO; +ATOR-24 PO; -BISA10SU3 PR; +CHOL1000 PO; -CHOL100010 PO; +DOXY1TAB6 PO; -EFF/375 PO; -FENT50DI19 TD; +FENT75DI2 TP; -LISI-729 PO; +LISI-789 PO; +OMEP20TA PO; -OMEP40CA PO; -PETR49OI TOP; +VENL37.593 PO; -[UNRECOGNIZED DRUG - CODE] TOP; -[UNRECOGNIZED DRUG - SUPPLY] TOP
[2017-04-05 08:36] LABS: BASO % 0.4 %; BASO ABS # 0.04 K/uL (0-0.2); COMPLETE YES; EOS % 3.2 %; HEMATOCRIT 36.9 % (37-47); IG% 0.2 %; LYMPH % 23.2 %; LYMPH ABS # 2.25 K/uL (1.2-3.4); MEAN CELL VOLUME 90.9 fL (80-100); MEAN CORPUSCULAR HEMOGLOBIN 28.1 pg (25-34); MEAN CORPUSCULAR HGB CONC 30.9 g/dl (32-36); MEAN PLATELET VOLUME 9.9 fL (7.4-10.4); MONO % 12.5 %; NEUT % 60.5 %; PLATELET COUNT 244 K/uL (130-400); RED BLOOD COUNT 4.06 M/uL (4.2-5.4); WHITE BLOOD COUNT 9.71 K/uL (4.8-10.8)
== END ==
LOC: C.LABCC 08:06
PROVIDERS: ATTEND Internal Medicine
DX: D64.9 Anemia, unspecified (principal)

== ENCOUNTER → 2017-04-12 | Outpatient (CLI) | payer BC ==
[~2017-04-12] MED LIST changes: -AMOX875T PO; -DOXY1TAB6 PO
== END ==
LOC: C.LABCC 17:31
PROVIDERS: ATTEND Internal Medicine
DX: R19.7 Diarrhea, unspecified (principal)

== ENCOUNTER 2017-05-10 10:00 | Emergency (ER) | payer BC ==
[~2017-05-10 10:00] MED LIST changes: -CLON0.5T3 PO
== END 2017-05-10 10:30 ==
LOC: EDBD 10:00 → C.EDA 10:02